=== PATIENT | female | born 1935 | race Hispanic/Latino ===

== ENCOUNTER 2017-07-03 16:43 | Inpatient (IN) | payer MEDICARE ==
[2017-07-03 18:51] VITALS: BMI 34.9
--- NOTE | 2017-07-03 20:06 | CP.PCM.HP ---
History of Present Illness - History of Present Illness History of Present Illness: CC: s/p L TKR This is an 82 year old female with a past medical history of osteoarthritis of the left knee, CKD, Type 2 DM, mild dementia, GERD, who is admitted to [facility] acute rehab status post left sided total knee replacement performed by Dr. Ludwig. The patient is hemodynamically stable currently. She is complaining of pain to the left knee and mild nausea but otherwise denies any other current complaint. She is admitted to acute rehab for continuation of PT/OT at this time. Orthopedic Surgeon: Dr. Ludwig PMD: Dr. Prakash Reich Present on Admission - Present on Admission Any Indicators Present on Admission: No Review of Systems - Hematologic/Lymphatic Additional comments: A 12 point ROS was conducted and found to be negative other than what was mentioned in the HPI. Past Patient History - Infectious Disease Hx of Infectious Diseases: None - Past Medical History & Family History Past Medical History?: Yes Past Family History: Reviewed and not pertinent - Past Social History Alcohol: None Home Situation {Lives}: With Family - CARDIAC Hx Hypertension: Yes - NEUROLOGICAL Hx Dementia: Yes - RENAL Hx Chronic Kidney Disease: Yes - ENDOCRINE/METABOLIC Hx Diabetes Mellitus Type 2: Yes - PSYCHIATRIC Hx Anxiety: Yes - SURGICAL HISTORY Hx Surgeries: Yes Hx Orthopedic Surgery: Yes Other/Comment: R kidney removal, R ovarian and tubal removal, R shoulder surgery - ANESTHESIA Hx Anesthesia: Yes Meds Allergies/Adverse Reactions: Allergies Allergy/AdvReac Type Severity Reaction Status Date / Time Penicillins Allergy SHORTNESS Verified 07/03/17 18:52 OF BREATH Physical Exam - Additional Findings Additional findings: Physical exam: Constitutional- cooperative, awake, alert. Occitan speaking only female NAD Head- NCAT, PERRL Eye- PERRL, EOMI ENT- normal exam, MMM. Neck- normal inspection, supple, no JVD Respiratory- CTAB, no wheezes rales rhonchi Cardiovascular- RRR, +S1, +S2 no MRG GI/Abdominal- Obese, normal bowel sounds, soft, no mass, no hsm Skin- warm, dry Extremities Exam- + small right knee skin tear present since admission. normal capillary refill, normal inspection Neurological Exam- alert, awake, oriented Psych- normal mood, normal affect Assessment & Plan - Assessment and Plan (Free Text) Plan: ASSESSMENT/PLAN This is an 82 year old female with a past medical history of osteoarthritis of the left knee, CKD, Type 2 DM, mild dementia, GERD, who is admitted to [facility] acute rehab status post left sided total knee replacement performed by Dr. Ludwig. The patient is hemodynamically stable currently. She is complaining of pain to the left knee and mild nausea but otherwise denies any other current complaint. She is admitted to acute rehab for continuation of PT/OT at this time. 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
[2017-07-04] MEDS: Pantoprazole 40 mg EC Tab PO SCH (06:40)
[2017-07-04] MEDS: Insulin Regular 100 units/ml SC SCH ×4 (06:48→21:00)
[2017-07-04] MEDS: Calcium-Vit D 500 mg-200 Units Tab UD PO SCH ×2 (08:47→17:25)
[2017-07-04] MEDS: Metoprolol Succinate 100 mg XL Tab PO SCH (08:49)
[2017-07-04 11:04] LABS: HEMOGLOBIN 9.1 g/dL (12.0-16.0); MEAN CELL VOLUME 89.9 fl (81.0-99.0); MEAN CORPUSCULAR HEMOGLOBIN 30.3 pg (27.0-31.0); MEAN CORPUSCULAR HGB CONC 33.7 g/dL (33.0-37.0); WHITE BLOOD COUNT 8.7 K/uL (4.8-10.8)
[2017-07-04 11:10] LABS: BLOOD UREA NITROGEN 19 mg/dl (7-17); CALCIUM 9.1 mg/dL (8.4-10.2); GFR AFRICAN-AMERICAN > 60; GFR NON-AFRICAN AMERICAN > 60
[2017-07-04 11:20] LABS: INR 1.3 (0.9-1.2); PARTIAL THROMBOPLASTIN TIME 31.7 Seconds (25.6-37.1)
[2017-07-04] MEDS: Enoxaparin 40 mg Syringe SC SCH (12:19)
--- NOTE | 2017-07-04 18:36 | CP.PCM.CON ---
History of Present Illness - History of Present Illness History of Present Illness: 82 year old female admitted to acute rehab with left TOTAL KNEE REPLACEMENT by Dr Ludwig with PMH of GERD, DM Review of Systems - Musculoskeletal Musculoskeletal: Abnormal Gait, Limited Range of Motion, Muscle Weakness Past Patient History - Infectious Disease Hx of Infectious Diseases: None - Past Medical History & Family History Past Medical History?: Yes - Past Social History Smoking Status: Never Smoked - CARDIAC Hx Hypertension: Yes - PULMONARY Hx Respiratory Disorders: Yes Other/Comment: - "Breathing problems" (Denies any hx: asthma,. COPD, or pneumonia). Patient prescribed Singulair - NEUROLOGICAL Hx Dementia: Yes - HEENT Hx Cataracts: Yes (Hx. of bilateral cataract surgeries) - RENAL Hx Chronic Kidney Disease: Yes (JED on CKD) - ENDOCRINE/METABOLIC Hx Diabetes Mellitus Type 2: Yes - HEMATOLOGICAL/ONCOLOGICAL Hx AIDS: No Hx Human Immunodeficiency Virus (HIV): No - MUSCULOSKELETAL/RHEUMATOLOGICAL Hx Falls: Yes (Per dgt, > 5 times. Per patient, > 10 times in the last 3 months ) - PSYCHIATRIC Hx Anxiety: Yes Hx Substance Use: No - SURGICAL HISTORY Hx Surgeries: Yes Hx Orthopedic Surgery: Yes Other/Comment: -- Left total knee replacement 07/01/2017. -- Right kidney removal. -- Right ovarian and tubal removal. -- Right shoulder surgery - ANESTHESIA Hx Anesthesia: Yes Hx Anesthesia Reactions: No Hx Malignant Hyperthermia: No Has any member of the family had a problem w/ anesthesia?: No Meds Allergies/Adverse Reactions: Allergies Allergy/AdvReac Type Severity Reaction Status Date / Time Penicillins Allergy SHORTNESS Verified 07/04/17 00:22 OF BREATH - Medications Medications: Current Medications Alprazolam (Xanax) 1 mg PO BID PRN PRN Reason: Anxiety Last Admin: 07/04/17 08:51 Dose: 1 mg Aspirin (Ecotrin) 81 mg PO DAILY [facility] Last Admin: 07/04/17 08:46 Dose: 81 mg Atorvastatin Calcium (Lipitor) 20 mg PO HS [facility] Last Admin: 07/03/17 22:29 Dose: 20 mg Calcium/Vitamin D (Oyster Shell Calcium/Vitamin D 500 Mg-200 Iu) 1 tab PO BID [facility] Last Admin: 07/04/17 17:25 Dose: 1 tab Clotrimazole (Lotrimin 1% Cream) 1 applic TOP BID [facility] Last Admin: 07/04/17 17:25 Dose: 1 applic Donepezil HCl (Aricept) 10 mg PO DAILY [facility] Last Admin: 07/04/17 08:46 Dose: 10 mg Enoxaparin Sodium (Lovenox) 40 mg SC DAILY [facility] PRN Reason: Protocol Last Admin: 07/04/17 12:19 Dose: 40 mg Glipizide (Glucotrol) 5 mg PO BIDWM [facility] Last Admin: 07/04/17 17:24 Dose: 5 mg Insulin Human Regular (Humulin R) 0 units SC [facility] PRN Reason: Protocol Last Admin: 07/04/17 17:25 Dose: 1 unit Lisinopril (Zestril) 40 mg PO DAILY [facility] Last Admin: 07/04/17 08:45 Dose: 40 mg Meclizine HCl (Antivert) 12.5 mg PO Q8 PRN PRN Reason: Dizziness Metformin HCl (Glucophage) 500 mg PO BIDWM [facility] Last Admin: 07/04/17 17:24 Dose: 500 mg Metoprolol Succinate (Toprol Xl) 100 mg PO DAILY [facility] Last Admin: 07/04/17 08:49 Dose: 100 mg Montelukast Sodium (Singulair) 10 mg PO HS [facility] Last Admin: 07/03/17 22:29 Dose: 10 mg Ondansetron HCl (Zofran Odt) 4 mg PO Q8H PRN PRN Reason: Nausea/Vomiting Pantoprazole Sodium (Protonix Ec Tab) 40 mg PO 0630 [facility] Last Admin: 07/04/17 06:40 Dose: 40 mg Paroxetine HCl (Paxil) 40 mg PO DAILY [facility] Last Admin: 07/04/17 08:48 Dose: 40 mg Tramadol HCl (Ultram) 50 mg PO Q6 PRN PRN Reason: PAIN. Last Admin: 07/04/17 08:52 Dose: 50 mg Zolpidem Tartrate (Ambien) 5 mg PO HS PRN PRN Reason: Insomnia Last Admin: 07/03/17 22:28 Dose: 5 mg Physical Exam - Head Exam Head Exam: ATRAUMATIC, NORMAL INSPECTION, NORMOCEPHALIC - Eye Exam Eye Exam: EOMI, Normal appearance, PERRL Pupil Exam: NORMAL ACCOMODATION, PERRL - ENT Exam ENT Exam: Mucous Membranes Moist, Normal Exam - Neck Exam Neck exam: Positive for: Normal Inspection - Respiratory Exam Respiratory Exam: Clear to Auscultation Bilateral - Cardiovascular Exam Cardiovascular Exam: REGULAR RHYTHM - GI/Abdominal Exam GI & Abdominal Exam: Normal Bowel Sounds - Rectal Exam Rectal Exam: NORMAL INSPECTION - Exam External exam: NORMAL EXTERNAL EXAM - Extremities Exam Extremities exam: Positive for: normal inspection Additional comments: left leg weakness with history OF TKR - Back Exam Back exam: NORMAL INSPECTION - Neurological Exam Neurological exam: Alert, CN II-XII Intact - Psychiatric Exam Psychiatric exam: Normal Affect - Skin Skin Exam: Normal Color Results - Vital Signs Recent Vital Signs: Last Vital Signs Temp 98.2 F 07/04/17 08:00 Pulse 101 H 07/04/17 08:49 Resp 20 07/04/17 08:00 BP 150/89 07/04/17 08:49 Pulse Ox 95 07/04/17 08:40 - Labs Result Diagrams: 07/04/17 10:55 07/04/17 10:55 Labs: Laboratory Results - last 24 hr 07/03/17 07/04/17 07/04/17 23:05 06:45 10:55 WBC 8.7 RBC 3.00 L Hgb 9.1 L Hct 26.9 L MCV 89.9 MCH 30.3 MCHC 33.7 RDW 15.0 H Plt Count 184 PT INR APTT Sodium Potassium Chloride Carbon Dioxide Anion Gap BUN Creatinine Est GFR ( Amer) Est GFR (Non-Af Amer) POC Glucose (mg/dL) 186 H 167 H Random Glucose Calcium 07/04/17 07/04/17 07/04/17 10:55 10:57 11:34 WBC RBC Hgb Hct MCV MCH MCHC RDW Plt Count PT 14.0 H INR 1.3 H APTT 31.7 Sodium 138 Potassium 4.4 Chloride 101 Carbon Dioxide 25 Anion Gap 16 BUN 19 H Creatinine 0.9 Est GFR ( Amer) > 60 Est GFR (Non-Af Amer) > 60 POC Glucose (mg/dL) 248 H Random Glucose 288 H Calcium 9.1 07/04/17 16:45 WBC RBC Hgb Hct MCV MCH MCHC RDW Plt Count PT INR APTT Sodium Potassium Chloride Carbon Dioxide Anion Gap BUN Creatinine Est GFR ( Amer) Est GFR (Non-Af Amer) POC Glucose (mg/dL) 159 H Random Glucose Calcium Assessment & Plan (1) S/P TKR (total knee replacement) Assessment and Plan: patient wit history of left total knee replacement, with history of arthritis, DM, gerd for physical, occupational , rec therapy for range of motion, strengthening, transfers and gait training Status: Acute
--- NOTE | 2017-07-04 18:41 | PCM.OPOC ---
Physiatry Overall Plan of Care - Overall Plan of Care Estimated Length of Stay in Weeks: 2 Rehab Impairment: Mobility, Gait, Balance, Coordination Etiologic Diagnosis: Hip/Knee Surgery Rehab/Medical Prognosis: Fair - Anticipated Interventions Physical Therapy:: Yes Occupational Therapy:: Yes Recreational Therapy:: Yes - Therapy Goals Bed Mobility: Independent Ambulation: Independent Functional Positional Changes:: Independent - Functional Outcomes Functional Outcomes: fair - Discharge Plan Identification of Barriers to Discharge: Home Situation Discharge Destination: Home
--- NOTE | 2017-07-04 18:43 | CP.PCM.PN ---
Subjective - Date & Time of Evaluation Date of Evaluation: 07/04/17 Time of Evaluation: 15:15 - Subjective Subjective: no acute complaints except mild knee pain Objective - Vital Signs/Intake and Output Vital Signs (last 24 hours): Temp Pulse Resp BP Pulse Ox 98.2 F 101 H 20 150/89 95 07/04/17 08:00 07/04/17 08:49 07/04/17 08:00 07/04/17 08:49 07/04/17 08:40 - Medications Medications: Current Medications Alprazolam (Xanax) 1 mg PO BID PRN PRN Reason: Anxiety Last Admin: 07/04/17 08:51 Dose: 1 mg Aspirin (Ecotrin) 81 mg PO DAILY [facility] Last Admin: 07/04/17 08:46 Dose: 81 mg Atorvastatin Calcium (Lipitor) 20 mg PO HS [facility] Last Admin: 07/03/17 22:29 Dose: 20 mg Calcium/Vitamin D (Oyster Shell Calcium/Vitamin D 500 Mg-200 Iu) 1 tab PO BID [facility] Last Admin: 07/04/17 17:25 Dose: 1 tab Clotrimazole (Lotrimin 1% Cream) 1 applic TOP BID [facility] Last Admin: 07/04/17 17:25 Dose: 1 applic Donepezil HCl (Aricept) 10 mg PO DAILY [facility] Last Admin: 07/04/17 08:46 Dose: 10 mg Enoxaparin Sodium (Lovenox) 40 mg SC DAILY [facility] PRN Reason: Protocol Last Admin: 07/04/17 12:19 Dose: 40 mg Glipizide (Glucotrol) 5 mg PO BIDWM [facility] Last Admin: 07/04/17 17:24 Dose: 5 mg Insulin Human Regular (Humulin R) 0 units SC [facility] PRN Reason: Protocol Last Admin: 07/04/17 17:25 Dose: 1 unit Lisinopril (Zestril) 40 mg PO DAILY [facility] Last Admin: 07/04/17 08:45 Dose: 40 mg Meclizine HCl (Antivert) 12.5 mg PO Q8 PRN PRN Reason: Dizziness Metformin HCl (Glucophage) 500 mg PO BIDWM [facility] Last Admin: 07/04/17 17:24 Dose: 500 mg Metoprolol Succinate (Toprol Xl) 100 mg PO DAILY [facility] Last Admin: 07/04/17 08:49 Dose: 100 mg Montelukast Sodium (Singulair) 10 mg PO HS [facility] Last Admin: 07/03/17 22:29 Dose: 10 mg Ondansetron HCl (Zofran Odt) 4 mg PO Q8H PRN PRN Reason: Nausea/Vomiting Pantoprazole Sodium (Protonix Ec Tab) 40 mg PO 0630 [facility] Last Admin: 07/04/17 06:40 Dose: 40 mg Paroxetine HCl (Paxil) 40 mg PO DAILY [facility] Last Admin: 07/04/17 08:48 Dose: 40 mg Tramadol HCl (Ultram) 50 mg PO Q6 PRN PRN Reason: PAIN. Last Admin: 07/04/17 08:52 Dose: 50 mg Zolpidem Tartrate (Ambien) 5 mg PO HS PRN PRN Reason: Insomnia Last Admin: 07/03/17 22:28 Dose: 5 mg - Labs Labs: 07/04/17 10:55 07/04/17 10:55 PT 14.0 Seconds (9.8-13.1) H 07/04/17 10:57 INR 1.3 (0.9-1.2) H 07/04/17 10:57 APTT 31.7 Seconds (25.6-37.1) 07/04/17 10:57 - Head Exam Head Exam: ATRAUMATIC, NORMAL INSPECTION, NORMOCEPHALIC - Eye Exam Eye Exam: EOMI, Normal appearance Pupil Exam: NORMAL ACCOMODATION, PERRL - ENT Exam ENT Exam: Mucous Membranes Moist, Normal Exam - Neck Exam Neck Exam: Full ROM, Normal Inspection - Respiratory Exam Respiratory Exam: Clear to Ausculation Bilateral - Cardiovascular Exam Cardiovascular Exam: REGULAR RHYTHM - GI/Abdominal Exam GI & Abdominal Exam: Soft, Normal Bowel Sounds - Rectal Exam Rectal Exam: NORMAL INSPECTION - Exam External exam: NORMAL EXTERNAL EXAM - Extremities Exam Extremities Exam: Full ROM, Normal Capillary Refill - Back Exam Back Exam: NORMAL INSPECTION - Neurological Exam Neurological Exam: Alert, Awake Neuro motor strength exam: Left Upper Extremity: 4, Right Upper Extremity: 4, Left Lower Extremity: 3, Right Lower Extremity: 4 - Psychiatric Exam Psychiatric exam: Normal Affect - Skin Skin Exam: Dry, Normal Color Assessment and Plan (1) S/P TKR (total knee replacement) Assessment & Plan: plan for physical, occupational, quad strengthening range of motion exercises Status: Acute
[2017-07-05] MEDS: Pantoprazole 40 mg EC Tab PO SCH (06:13)
[2017-07-05] MEDS: Insulin Regular 100 units/ml SC SCH ×4 (06:30→21:50)
[2017-07-05] MEDS: Enoxaparin 40 mg Syringe SC SCH (08:11)
[2017-07-05] MEDS: Metoprolol Succinate 100 mg XL Tab PO SCH (08:12)
[2017-07-05] MEDS: Calcium-Vit D 500 mg-200 Units Tab UD PO SCH ×2 (08:16→17:24)
[2017-07-05] MEDS: Bacitracin OINT 15GM TOP SCH (17:25)
[2017-07-06] MEDS: Pantoprazole 40 mg EC Tab PO SCH (06:04)
[2017-07-06 06:52] LABS: HEMOGLOBIN 8.7 g/dL (12.0-16.0); MEAN CORPUSCULAR HEMOGLOBIN 29.4 pg (27.0-31.0); MEAN CORPUSCULAR HGB CONC 32.6 g/dL (33.0-37.0); RBC 2.98 Mil/uL (3.80-5.20); RED CELL DISTRIBUTION WIDTH 14.9 % (11.5-14.5); WHITE BLOOD COUNT 7.7 K/uL (4.8-10.8)
[2017-07-06] MEDS: Insulin Regular 100 units/ml SC SCH ×4 (06:54→22:11)
[2017-07-06 07:32] LABS: INR 1.2 (0.9-1.2); PROTHROMBIN TIME 12.9 Seconds (9.8-13.1)
[2017-07-06] MEDS: Enoxaparin 40 mg Syringe SC SCH (08:02)
[2017-07-06] MEDS: Calcium-Vit D 500 mg-200 Units Tab UD PO SCH ×2 (08:03→16:41)
[2017-07-06] MEDS: Bacitracin OINT 15GM TOP SCH ×2 (08:03→16:39)
[2017-07-06] MEDS: Metoprolol Succinate 100 mg XL Tab PO SCH (08:03)
[2017-07-06 08:12] LABS: ALBUMIN 3.1 g/dL (3.5-5.0); ALT/SGPT 31 U/L (9-52); AST/SGOT 20 U/L (14-36); BLOOD UREA NITROGEN 16 mg/dl (7-17); CALCIUM 8.7 mg/dL (8.4-10.2); GFR AFRICAN-AMERICAN > 60; GFR NON-AFRICAN AMERICAN > 60
--- NOTE | 2017-07-06 08:32 | PN ---
DATE: 07/05/2017 MEDICAL FOLLOWUP PROGRESS NOTE SUBJECTIVE: The patient is seen and examined. Interim events noted. Orthopedic interventions noted and appreciated. The patient is status post total knee replacement on left. The patient did not ____ history is obtained by template layout worker. No shortness of breath. No specific medications. PHYSICAL EXAMINATION: GENERAL: The patient is in no acute distress. VITAL SIGNS: Stable. HEART: S1 and S2 are normal and regular. LUNGS: Good bilateral air exchange. GASTROINTESTINAL: Abdomen is soft and nontender. EXTREMITIES: Left lower extremity is in knee immobilizer. No sign of distal neurovascular compromise. No edema and no calf swelling. No tenderness. No acute ischemia. CENTRAL NERVOUS SYSTEM: Exam is essentially unchanged. DIAGNOSTIC DATA: Available diagnostic data reviewed. Hospitalist and interventions noted and appreciated. ASSESSMENT AND PLAN: Overall, the patient is medically stable. Plan as ordered. Hermilo Mederos MD
--- NOTE | 2017-07-06 08:47 | PN ---
DATE: 07/06/2017 SUBJECTIVE: The patient is seen and examined. Interim events noted and . She feels okay. Pain is adequately controlled. No chest pain or shortness of breath. PHYSICAL EXAMINATION: GENERAL: The patient is in no acute distress. VITAL SIGNS: Stable. HEART: S1 and S2 normal and regular. LUNGS: Good bilateral air exchange. GASTROINTESTINAL: Abdomen is soft and nontender. EXTREMITIES: The patient is status post surgery. No sign of acute complications. No guarding. No rigidity. No edema. No calf swelling. No tenderness. No acute ischemia. CENTRAL NERVOUS SYSTEM: Exam is essentially unchanged. DIAGNOSTIC DATA: Available diagnostic data reviewed. ASSESSMENT AND PLAN: Overall, the patient's general medical condition is stable. Plan as ordered. Hermilo Mederos MD
[2017-07-07] MEDS: Pantoprazole 40 mg EC Tab PO SCH (06:01)
[2017-07-07 06:39] LABS: HEMOGLOBIN 8.7 g/dL (12.0-16.0); MEAN CELL VOLUME 89.2 fl (81.0-99.0); MEAN CORPUSCULAR HEMOGLOBIN 29.6 pg (27.0-31.0); MEAN CORPUSCULAR HGB CONC 33.2 g/dL (33.0-37.0); RBC 2.92 Mil/uL (3.80-5.20); RED CELL DISTRIBUTION WIDTH 14.8 % (11.5-14.5); WHITE BLOOD COUNT 8.1 K/uL (4.8-10.8)
[2017-07-07] MEDS: Insulin Regular 100 units/ml SC SCH ×4 (06:46→21:06)
[2017-07-07] MEDS: Bacitracin OINT 15GM TOP SCH ×2 (08:43→17:28)
[2017-07-07] MEDS: Enoxaparin 40 mg Syringe SC SCH (08:43)
[2017-07-07] MEDS: Metoprolol Succinate 100 mg XL Tab PO SCH (08:45)
[2017-07-07] MEDS: Calcium-Vit D 500 mg-200 Units Tab UD PO SCH ×2 (08:46→17:28)
--- NOTE | 2017-07-07 09:40 | CP.PCM.PN ---
Subjective - Date & Time of Evaluation Date of Evaluation: 07/07/17 Time of Evaluation: 07:10 - Subjective Subjective: Patient seen and examined bedside with Dr Mederos. Patient reports feeling better and on PT. no overnight event. Denies chest pain, SOB, nausea, vomiting, diarrhea, abd pain. Objective - Vital Signs/Intake and Output Vital Signs (last 24 hours): Temp Pulse Resp BP Pulse Ox 98.2 F 87 19 145/73 96 07/07/17 08:12 07/07/17 08:45 07/07/17 08:12 07/07/17 08:46 07/07/17 08:12 - Medications Medications: Current Medications Alprazolam (Xanax) 1 mg PO BID PRN PRN Reason: Anxiety Last Admin: 07/05/17 08:05 Dose: 1 mg Aspirin (Ecotrin) 81 mg PO DAILY [facility] Last Admin: 07/07/17 08:46 Dose: 81 mg Atorvastatin Calcium (Lipitor) 20 mg PO HS [facility] Last Admin: 07/06/17 22:11 Dose: 20 mg Bacitracin (Bacitracin Oint) 1 applic TOP BID [facility] Last Admin: 07/07/17 08:43 Dose: 1 applic Calcium/Vitamin D (Oyster Shell Calcium/Vitamin D 500 Mg-200 Iu) 1 tab PO BID [facility] Last Admin: 07/07/17 08:46 Dose: 1 tab Clotrimazole (Lotrimin 1% Cream) 1 applic TOP BID [facility] Last Admin: 07/07/17 08:43 Dose: 1 applic Donepezil HCl (Aricept) 10 mg PO DAILY [facility] Last Admin: 07/07/17 08:47 Dose: 10 mg Enoxaparin Sodium (Lovenox) 40 mg SC DAILY [facility] PRN Reason: Protocol Last Admin: 07/07/17 08:43 Dose: 40 mg Glipizide (Glucotrol) 5 mg PO BIDWM [facility] Last Admin: 07/07/17 08:44 Dose: 5 mg Insulin Human Regular (Humulin R) 0 units SC [facility] PRN Reason: Protocol Last Admin: 07/07/17 06:46 Dose: Not Given Lisinopril (Zestril) 40 mg PO DAILY [facility] Last Admin: 07/07/17 08:46 Dose: 40 mg Meclizine HCl (Antivert) 12.5 mg PO Q8 PRN PRN Reason: Dizziness Metformin HCl (Glucophage) 500 mg PO BIDWM [facility] Last Admin: 07/07/17 08:44 Dose: 500 mg Metoprolol Succinate (Toprol Xl) 100 mg PO DAILY [facility] Last Admin: 07/07/17 08:45 Dose: 100 mg Montelukast Sodium (Singulair) 10 mg PO HS [facility] Last Admin: 07/06/17 22:12 Dose: 10 mg Ondansetron HCl (Zofran Odt) 4 mg PO Q8H PRN PRN Reason: Nausea/Vomiting Pantoprazole Sodium (Protonix Ec Tab) 40 mg PO 0630 [facility] Last Admin: 07/07/17 06:01 Dose: 40 mg Paroxetine HCl (Paxil) 40 mg PO DAILY [facility] Last Admin: 07/07/17 08:46 Dose: 40 mg Tramadol HCl (Ultram) 50 mg PO Q6 PRN PRN Reason: PAIN SCALE 1-10. Last Admin: 07/07/17 09:15 Dose: 50 mg Zolpidem Tartrate (Ambien) 5 mg PO HS PRN PRN Reason: Insomnia Last Admin: 07/06/17 22:33 Dose: 5 mg - Labs Labs: 07/07/17 04:00 07/06/17 05:40 PT 12.9 Seconds (9.8-13.1) 07/06/17 05:40 INR 1.2 (0.9-1.2) 07/06/17 05:40 APTT 31.7 Seconds (25.6-37.1) 07/04/17 10:57 - Constitutional Appears: Non-toxic, No Acute Distress - Head Exam Head Exam: ATRAUMATIC, NORMOCEPHALIC - Eye Exam Eye Exam: Normal appearance - ENT Exam ENT Exam: Mucous Membranes Moist - Respiratory Exam Respiratory Exam: Clear to Ausculation Bilateral. absent: Rales, Rhonchi, Wheezes - Cardiovascular Exam Cardiovascular Exam: REGULAR RHYTHM, +S1, +S2 - GI/Abdominal Exam GI & Abdominal Exam: Soft, Normal Bowel Sounds. absent: Tenderness - Extremities Exam Additional comments: Left elbow hematoma. right knee anterior aspect hematoma.no signs of infection Left knee s/p TKR - Neurological Exam Neurological Exam: Alert, Awake, Oriented x3 - Psychiatric Exam Psychiatric exam: Normal Affect, Normal Mood Assessment and Plan - Assessment and Plan (Free Text) Plan: Assessment/Plan 1) s/p L TKR - Admit to acute rehab -c/w PT/OT - Pain management with Ultram/Tylenol as needed 2) Type 2 DM - Glipizide/Metformin 3) Hypercholesterolemia - Lipitor 20 mg po HS 4) Essential HTN - Lisinopril 40 mg po daily 5) Anxiety - Continue Xanax PRN 6) GI prophylaxis - Protonix 40 mg po daily' 7) DVT prophylaxis - Lovenox 40 mg sc
[2017-07-07 10:29] LABS: ALBUMIN 3.1 g/dL (3.5-5.0); ALT/SGPT 30 U/L (9-52); AST/SGOT 66 U/L (14-36); BLOOD UREA NITROGEN 17 mg/dl (7-17); CALCIUM 9.1 mg/dL (8.4-10.2); GFR AFRICAN-AMERICAN > 60; GFR NON-AFRICAN AMERICAN > 60
--- NOTE | 2017-07-07 14:19 | CP.PCM.PN ---
Subjective - Date & Time of Evaluation Date of Evaluation: 07/07/17 Time of Evaluation: 12:15 - Subjective Subjective: mild knee pain Objective - Vital Signs/Intake and Output Vital Signs (last 24 hours): Temp Pulse Resp BP Pulse Ox 98.2 F 87 19 145/73 96 07/07/17 08:12 07/07/17 08:45 07/07/17 08:12 07/07/17 08:46 07/07/17 08:12 - Medications Medications: Current Medications Alprazolam (Xanax) 1 mg PO BID PRN PRN Reason: Anxiety Last Admin: 07/05/17 08:05 Dose: 1 mg Aspirin (Ecotrin) 81 mg PO DAILY [facility] Last Admin: 07/07/17 08:46 Dose: 81 mg Atorvastatin Calcium (Lipitor) 20 mg PO HS [facility] Last Admin: 07/06/17 22:11 Dose: 20 mg Bacitracin (Bacitracin Oint) 1 applic TOP BID [facility] Last Admin: 07/07/17 08:43 Dose: 1 applic Calcium/Vitamin D (Oyster Shell Calcium/Vitamin D 500 Mg-200 Iu) 1 tab PO BID [facility] Last Admin: 07/07/17 08:46 Dose: 1 tab Clotrimazole (Lotrimin 1% Cream) 1 applic TOP BID [facility] Last Admin: 07/07/17 08:43 Dose: 1 applic Donepezil HCl (Aricept) 10 mg PO DAILY [facility] Last Admin: 07/07/17 08:47 Dose: 10 mg Enoxaparin Sodium (Lovenox) 40 mg SC DAILY [facility] PRN Reason: Protocol Last Admin: 07/07/17 08:43 Dose: 40 mg Glipizide (Glucotrol) 5 mg PO BIDWM [facility] Last Admin: 07/07/17 08:44 Dose: 5 mg Insulin Human Regular (Humulin R) 0 units SC [facility] PRN Reason: Protocol Last Admin: 07/07/17 11:45 Dose: 1 unit Lisinopril (Zestril) 40 mg PO DAILY [facility] Last Admin: 07/07/17 08:46 Dose: 40 mg Meclizine HCl (Antivert) 12.5 mg PO Q8 PRN PRN Reason: Dizziness Metformin HCl (Glucophage) 500 mg PO BIDWM [facility] Last Admin: 07/07/17 08:44 Dose: 500 mg Metoprolol Succinate (Toprol Xl) 100 mg PO DAILY [facility] Last Admin: 07/07/17 08:45 Dose: 100 mg Montelukast Sodium (Singulair) 10 mg PO HS [facility] Last Admin: 07/06/17 22:12 Dose: 10 mg Ondansetron HCl (Zofran Odt) 4 mg PO Q8H PRN PRN Reason: Nausea/Vomiting Pantoprazole Sodium (Protonix Ec Tab) 40 mg PO 0630 [facility] Last Admin: 07/07/17 06:01 Dose: 40 mg Paroxetine HCl (Paxil) 40 mg PO DAILY [facility] Last Admin: 07/07/17 08:46 Dose: 40 mg Tramadol HCl (Ultram) 50 mg PO Q6 PRN PRN Reason: PAIN SCALE 1-10. Last Admin: 07/07/17 09:15 Dose: 50 mg Zolpidem Tartrate (Ambien) 5 mg PO HS PRN PRN Reason: Insomnia Last Admin: 07/06/17 22:33 Dose: 5 mg - Labs Labs: 07/07/17 04:00 07/07/17 04:00 PT 12.9 Seconds (9.8-13.1) 07/06/17 05:40 INR 1.2 (0.9-1.2) 07/06/17 05:40 APTT 31.7 Seconds (25.6-37.1) 07/04/17 10:57 - Head Exam Head Exam: ATRAUMATIC, NORMAL INSPECTION, NORMOCEPHALIC - Eye Exam Eye Exam: EOMI, Normal appearance, PERRL Pupil Exam: NORMAL ACCOMODATION - ENT Exam ENT Exam: Mucous Membranes Moist, Normal Exam - Neck Exam Neck Exam: Normal Inspection - Respiratory Exam Respiratory Exam: Clear to Ausculation Bilateral, NORMAL BREATHING PATTERN - Cardiovascular Exam Cardiovascular Exam: REGULAR RHYTHM - GI/Abdominal Exam GI & Abdominal Exam: Soft - Rectal Exam Rectal Exam: NORMAL INSPECTION - Exam External exam: NORMAL EXTERNAL EXAM - Extremities Exam Extremities Exam: Full ROM, Normal Capillary Refill, Normal Inspection - Back Exam Back Exam: NORMAL INSPECTION - Neurological Exam Neurological Exam: Alert, Awake Neuro motor strength exam: Left Upper Extremity: 4, Right Upper Extremity: 4, Left Lower Extremity: 3, Right Lower Extremity: 4 - Psychiatric Exam Psychiatric exam: Normal Affect, Normal Mood - Skin Skin Exam: Dry, Normal Color Assessment and Plan (1) S/P TKR (total knee replacement) Assessment & Plan: plan for physical, occupational rec therapy monitor skin Status: Acute
--- NOTE | 2017-07-07 18:24 | CT ---
PROCEDURE: CT HEAD WITHOUT CONTRAST. HISTORY: Change in mental status. COMPARISON: 02/15/2008. TECHNIQUE: Axial computed tomography images were obtained through the head/brain without intravenous contrast. Coronal and sagittal reconstructed images. Radiation dose: Total exam DLP = 781.23 MGy-cm. This CT exam was performed using one or more of the following dose reduction techniques: Automated exposure control, adjustment of the mA and/or kV according to patient size, and/or use of iterative reconstruction technique. FINDINGS: HEMORRHAGE: No intracranial hemorrhage. BRAIN: No mass effect or edema. Age related senescent changes. VENTRICLES: Unremarkable. No hydrocephalus. CALVARIUM: Unremarkable. PARANASAL SINUSES: Unremarkable as visualized. No significant inflammatory changes. MASTOID AIR CELLS: Unremarkable as visualized. No inflammatory changes. OTHER FINDINGS: None. IMPRESSION: No acute intracranial abnormalities. No significant findings to account for the clinical presentation. No significant interval change compared to the prior examination(s).
--- NOTE | 2017-07-07 18:56 | CP.PCM.CON ---
History of Present Illness - History of Present Illness History of Present Illness: Mrs. Diaz is an 82-year-old woman with a past medical history of osteoarthritis of the left knee, CKD, Type 2 DM, dementia (on Aricept), GERD, who is s/p left knee replacement (on July 01), and is currently in acute rehab. Earlier today, at around 4:30 PM, the patient became acutely agitated, called nursing and told them that her daughter is in the bathroom having a heart attack. The nurses assured her this was not true and showed her. Later her daughter came and said she was okay, but the patient insisted that her daughter had a secret procedure done and asked her to show her by removing her shirt. Essentially, the patient was having hallucinations and delusions along with agitation. She has difficulty sleeping and takes Ambien and occasionally takes Xanax for anxiety. She was given Ultram today for pain. Currently, the patient is back to baseline. Her daughter was present and said that her mother is back to normal now. CT scan of the head was done and did not show any acute findings. Review of Systems - Review of Systems All systems: reviewed and no additional remarkable complaints except Past Patient History - Infectious Disease Hx of Infectious Diseases: None - Past Medical History & Family History Past Medical History?: Yes - Past Social History Smoking Status: Never Smoked - CARDIAC Hx Hypertension: Yes - PULMONARY Hx Respiratory Disorders: Yes Other/Comment: - "Breathing problems" (Denies any hx: asthma,. COPD, or pneumonia). Patient prescribed Singulair - NEUROLOGICAL Hx Dementia: Yes - HEENT Hx Cataracts: Yes (Hx. of bilateral cataract surgeries) - RENAL Hx Chronic Kidney Disease: Yes (JED on CKD) - ENDOCRINE/METABOLIC Hx Diabetes Mellitus Type 2: Yes - HEMATOLOGICAL/ONCOLOGICAL Hx AIDS: No Hx Human Immunodeficiency Virus (HIV): No - MUSCULOSKELETAL/RHEUMATOLOGICAL Hx Falls: Yes (Per dgt, > 5 times. Per patient, > 10 times in the last 3 months ) - PSYCHIATRIC Hx Anxiety: Yes Hx Substance Use: No - SURGICAL HISTORY Hx Surgeries: Yes Hx Orthopedic Surgery: Yes Other/Comment: -- Left total knee replacement 07/01/2017. -- Right kidney removal. -- Right ovarian and tubal removal. -- Right shoulder surgery - ANESTHESIA Hx Anesthesia: Yes Hx Anesthesia Reactions: No Hx Malignant Hyperthermia: No Has any member of the family had a problem w/ anesthesia?: No Meds Allergies/Adverse Reactions: Allergies Allergy/AdvReac Type Severity Reaction Status Date / Time Penicillins Allergy SHORTNESS Verified 07/04/17 00:22 OF BREATH - Medications Medications: Current Medications Acetaminophen (Tylenol 325mg Tab) 650 mg PO Q6 PRN PRN Reason: Pain 4-10 Alprazolam (Xanax) 1 mg PO BID PRN PRN Reason: Anxiety Last Admin: 07/05/17 08:05 Dose: 1 mg Aspirin (Ecotrin) 81 mg PO DAILY [facility] Last Admin: 07/07/17 08:46 Dose: 81 mg Atorvastatin Calcium (Lipitor) 20 mg PO HS [facility] Last Admin: 07/06/17 22:11 Dose: 20 mg Bacitracin (Bacitracin Oint) 1 applic TOP BID [facility] Last Admin: 07/07/17 17:28 Dose: 1 applic Calcium/Vitamin D (Oyster Shell Calcium/Vitamin D 500 Mg-200 Iu) 1 tab PO BID [facility] Last Admin: 07/07/17 17:28 Dose: 1 tab Clotrimazole (Lotrimin 1% Cream) 1 applic TOP BID [facility] Last Admin: 07/07/17 17:27 Dose: 1 applic Donepezil HCl (Aricept) 10 mg PO DAILY [facility] Last Admin: 07/07/17 08:47 Dose: 10 mg Enoxaparin Sodium (Lovenox) 40 mg SC DAILY [facility] PRN Reason: Protocol Last Admin: 07/07/17 08:43 Dose: 40 mg Glipizide (Glucotrol) 5 mg PO BIDWM [facility] Last Admin: 07/07/17 17:28 Dose: 5 mg Insulin Human Regular (Humulin R) 0 units SC [facility] PRN Reason: Protocol Last Admin: 07/07/17 17:27 Dose: 1 unit Lisinopril (Zestril) 40 mg PO DAILY [facility] Last Admin: 07/07/17 08:46 Dose: 40 mg Meclizine HCl (Antivert) 12.5 mg PO Q8 PRN PRN Reason: Dizziness Metformin HCl (Glucophage) 500 mg PO BIDWM [facility] Last Admin: 07/07/17 17:28 Dose: 500 mg Metoprolol Succinate (Toprol Xl) 100 mg PO DAILY [facility] Last Admin: 07/07/17 08:45 Dose: 100 mg Montelukast Sodium (Singulair) 10 mg PO [facility] Last Admin: 07/06/17 22:12 Dose: 10 mg Ondansetron HCl (Zofran Odt) 4 mg PO Q8H PRN PRN Reason: Nausea/Vomiting Pantoprazole Sodium (Protonix Ec Tab) 40 mg PO 0630 [facility] Last Admin: 07/07/17 06:01 Dose: 40 mg Paroxetine HCl (Paxil) 40 mg PO DAILY [facility] Last Admin: 07/07/17 08:46 Dose: 40 mg Quetiapine Fumarate (Seroquel) 25 mg PO [facility] Physical Exam - Constitutional Appears: Well - Neurological Exam Neurological exam: Abnormal Gait, Alert, CN II-XII Intact, Oriented x3, Reflexes Normal Additional comments: AAOX3. - Psychiatric Exam Psychiatric exam: Normal Affect, Normal Mood Results - Vital Signs Recent Vital Signs: Last Vital Signs Temp 98.2 F 07/07/17 08:12 Pulse 87 07/07/17 08:45 Resp 19 07/07/17 08:12 BP 145/73 07/07/17 08:46 Pulse Ox 96 07/07/17 08:12 - Labs Result Diagrams: 07/07/17 04:00 07/07/17 04:00 Labs: Laboratory Results - last 24 hr 07/06/17 07/07/17 07/07/17 21:01 04:00 04:00 WBC 8.1 RBC 2.92 L Hgb 8.7 L Hct 26.0 L MCV 89.2 MCH 29.6 MCHC 33.2 RDW 14.8 H Plt Count 241 Sodium 138 Potassium 4.2 Chloride 102 Carbon Dioxide 23 Anion Gap 17 BUN 17 Creatinine 0.8 Est GFR ( Amer) > 60 Est GFR (Non-Af Amer) > 60 POC Glucose (mg/dL) 200 H Random Glucose 154 H Hemoglobin A1c Calcium 9.1 Total Bilirubin 0.8 AST 66 H D ALT 30 Alkaline Phosphatase 90 Total Protein 6.3 Albumin 3.1 L Globulin 3.1 Albumin/Globulin Ratio 1.0 07/07/17 07/07/17 07/07/17 06:41 07:25 11:22 WBC RBC Hgb Hct MCV MCH MCHC RDW Plt Count Sodium Potassium Chloride Carbon Dioxide Anion Gap BUN Creatinine Est GFR ( Amer) Est GFR (Non-Af Amer) POC Glucose (mg/dL) 165 H 186 H Random Glucose Hemoglobin A1c 7.8 H Calcium Total Bilirubin AST ALT Alkaline Phosphatase Total Protein Albumin Globulin Albumin/Globulin Ratio 07/07/17 16:20 WBC RBC Hgb Hct MCV MCH MCHC RDW Plt Count Sodium Potassium Chloride Carbon Dioxide Anion Gap BUN Creatinine Est GFR ( Amer) Est GFR (Non-Af Amer) POC Glucose (mg/dL) 157 H Random Glucose Hemoglobin A1c Calcium Total Bilirubin AST ALT Alkaline Phosphatase Total Protein Albumin Globulin Albumin/Globulin Ratio Assessment & Plan (1) Hallucinations Assessment and Plan: Likely due to a mix of medication effect, delirium and baseline dementia. I recommend avoiding opiates, benzos and ambien, if possible. I would like to give her a small dose of Seroquel 25 mg QHS to see if this will help reduce her episodes of hallucinations, help with sleep possibly help avoid sun-downing. Thank you. Status: Acute Priority: High
[2017-07-08] MEDS: Pantoprazole 40 mg EC Tab PO SCH (06:26)
[2017-07-08] MEDS: Insulin Regular 100 units/ml SC SCH ×4 (06:30→21:00)
[2017-07-08] MEDS: Bacitracin OINT 15GM TOP SCH ×2 (08:32→16:31)
[2017-07-08] MEDS: Calcium-Vit D 500 mg-200 Units Tab UD PO SCH ×2 (08:32→16:33)
[2017-07-08] MEDS: Enoxaparin 40 mg Syringe SC SCH (08:32)
[2017-07-08] MEDS: Metoprolol Succinate 100 mg XL Tab PO SCH (08:34)
--- NOTE | 2017-07-08 08:36 | CP.PCM.PN ---
Subjective - Date & Time of Evaluation Date of Evaluation: 07/08/17 Time of Evaluation: 07:15 - Subjective Subjective: Patient seen and examined bedside with Dr Mederos. Patient had one episode of AMS ( visual hallucination and agitation) yesterday. Patient today AAO x 3 with her daughter present. Denies visual, auditory hallucination, depression or anxiety. Denies chest pain, SOB, fever, abd pain. Improving with PT. Neuro consult appreciated Psyq consult pending Objective - Vital Signs/Intake and Output Vital Signs (last 24 hours): Temp Pulse Resp BP Pulse Ox 97.9 F 74 20 112/64 96 07/07/17 20:22 07/08/17 08:34 07/07/17 20:22 07/08/17 08:34 07/07/17 20:22 - Medications Medications: Current Medications Acetaminophen (Tylenol 325mg Tab) 650 mg PO Q6 PRN PRN Reason: Pain 4-10 Last Admin: 07/08/17 08:31 Dose: 650 mg Alprazolam (Xanax) 1 mg PO BID PRN PRN Reason: Anxiety Last Admin: 07/05/17 08:05 Dose: 1 mg Aspirin (Ecotrin) 81 mg PO DAILY [facility] Last Admin: 07/08/17 08:35 Dose: 81 mg Atorvastatin Calcium (Lipitor) 20 mg PO HS [facility] Last Admin: 07/07/17 21:23 Dose: 20 mg Bacitracin (Bacitracin Oint) 1 applic TOP BID [facility] Last Admin: 07/08/17 08:32 Dose: 1 applic Calcium/Vitamin D (Oyster Shell Calcium/Vitamin D 500 Mg-200 Iu) 1 tab PO BID [facility] Last Admin: 07/08/17 08:32 Dose: 1 tab Clotrimazole (Lotrimin 1% Cream) 1 applic TOP BID [facility] Last Admin: 07/08/17 08:32 Dose: 1 applic Donepezil HCl (Aricept) 10 mg PO DAILY [facility] Last Admin: 07/08/17 08:33 Dose: 10 mg Enoxaparin Sodium (Lovenox) 40 mg SC DAILY [facility] PRN Reason: Protocol Last Admin: 07/08/17 08:32 Dose: 40 mg Glipizide (Glucotrol) 5 mg PO BIDWM [facility] Last Admin: 07/08/17 08:35 Dose: 5 mg Insulin Human Regular (Humulin R) 0 units SC [facility] PRN Reason: Protocol Last Admin: 07/08/17 06:30 Dose: Not Given Lisinopril (Zestril) 40 mg PO DAILY [facility] Last Admin: 07/08/17 08:33 Dose: 40 mg Meclizine HCl (Antivert) 12.5 mg PO Q8 PRN PRN Reason: Dizziness Metformin HCl (Glucophage) 500 mg PO BIDWM [facility] Last Admin: 07/08/17 08:35 Dose: 500 mg Metoprolol Succinate (Toprol Xl) 100 mg PO DAILY [facility] Last Admin: 07/08/17 08:34 Dose: 100 mg Montelukast Sodium (Singulair) 10 mg PO HS [facility] Last Admin: 07/07/17 21:23 Dose: 10 mg Ondansetron HCl (Zofran Odt) 4 mg PO Q8H PRN PRN Reason: Nausea/Vomiting Pantoprazole Sodium (Protonix Ec Tab) 40 mg PO 0630 [facility] Last Admin: 07/08/17 06:26 Dose: 40 mg Paroxetine HCl (Paxil) 40 mg PO DAILY [facility] Last Admin: 07/08/17 08:35 Dose: 40 mg Quetiapine Fumarate (Seroquel) 25 mg PO HS [facility] Last Admin: 07/07/17 21:23 Dose: 25 mg - Labs Labs: 07/07/17 04:00 07/07/17 04:00 PT 12.9 Seconds (9.8-13.1) 07/06/17 05:40 INR 1.2 (0.9-1.2) 07/06/17 05:40 APTT 31.7 Seconds (25.6-37.1) 07/04/17 10:57 - Constitutional Appears: Non-toxic, No Acute Distress - Head Exam Head Exam: ATRAUMATIC, NORMOCEPHALIC - Eye Exam Eye Exam: Normal appearance - ENT Exam ENT Exam: Mucous Membranes Moist - Respiratory Exam Respiratory Exam: Clear to Ausculation Bilateral. absent: Rhonchi, Wheezes - Cardiovascular Exam Cardiovascular Exam: REGULAR RHYTHM, +S1, +S2 - GI/Abdominal Exam GI & Abdominal Exam: Soft, Normal Bowel Sounds. absent: Tenderness - Extremities Exam Additional comments: Left elbow hematoma. right knee anterior aspect hematoma.no signs of infection Left knee s/p TKR immobilizer in place - Back Exam Back Exam: NORMAL INSPECTION - Neurological Exam Neurological Exam: Alert, Awake, Oriented x3 - Psychiatric Exam Psychiatric exam: Normal Affect, Normal Mood - Skin Skin Exam: Normal Color Assessment and Plan - Assessment and Plan (Free Text) Plan: Assessment/Plan 1) s/p L TKR - Admit to acute rehab -c/w PT/OT - Pain management with Ultram/Tylenol as needed 2) AMS -may be secondary to delirium due to med side effects -CT head normal -Neuro consult appreciated -off from opioids and benzos -Seroquel QHS -Psyq consult pending 3) Type 2 DM - Glipizide/Metformin 4) Hypercholesterolemia - Lipitor 20 mg po HS 5) Essential HTN - Lisinopril 40 mg po daily 6) Anxiety - Continue Xanax PRN 7) GI prophylaxis - Protonix 40 mg po daily' 8) DVT prophylaxis - Lovenox 40 mg sc
--- NOTE | 2017-07-08 12:08 | PSY.TMCNF ---
Nursing - Vital Signs Vital Signs (Last 8 hours): Vital Signs 07/08/17 07/08/17 07/08/17 08:33 08:34 09:00 Temperature 97.9 F Pulse Rate 74 74 Respiratory 20 Rate Blood Pressure 112/64 112/64 112/64 O2 Sat by Pulse Oximetry 07/08/17 07/08/17 10:00 10:52 Temperature 98.0 F Pulse Rate 74 77 Respiratory 22 Rate Blood Pressure 112/64 125/77 O2 Sat by Pulse 99 Oximetry Pain: 1 - Precautions: Precautions: Fall Prevention - Medications/Other Issues Comment: (+) episode of confusion with paranoia yesterday afternoon. CT Scan done (-), Seen by Neuro and Psych with new orders made. Confusion and paranoia resolved this morning. - Consults Comment: DR. Castellano, Dr. Christensen, Dr. Bennett - Skin Incision Site: Left knee with anne Dressing Status: Clean, Dry, Intact Incision: Healing Well, Anne Intact, No Drainage Noted Incision Line Treatment: Cleanse with alcohol and HTML DEVELOPER, may cover with dressing prn drainage. - Toileting Toileting: Moderate Assistance - Bladder Management Bladder Pattern: Normal Voiding Method: Toilet, Bedpan Bladder Management: Dependent Frequency of Accidents: 5 ( no periods of accident noted in the past 3 days ) - Bowel Management Bowel Pattern: Normal, Incontinent Bowel Management: Dependent Frequency of Accidents: 3 ( no periods of accident noted in the past 3 days ) - Transfers Transfers: Moderate Assistance - ADL's ADL's: Maximal Assistance - Pain Management Comments: Tylenol PRN pain - Patient/Family Teaching Comments: - Care post TKR and safety precautions. - Care of patients during periods of confusion and agitation. - Seroquel medication education - Goals/Time Frame Comments: Per multidisciplinary care vannessa and goals - Provider Provider: Rosario GARCIAN RN CRRN Physical Therapy - Bed Mobility Bed Mobility: Verbal Cues, Minimal Assistance Comment: assistance to manage LLE - Transfers Sit to Stand: Verbal Cues, Contact Guard, Minimal Assistance - Ambulation Level of Assistance: Verbal Cues, Contact Guard Distance (ft.): 60 Assistive Devices: Rolling Walker - Stair Negotiation Stairs: Level of Assistance: Contact Guard, Minimal Assistance Number of Stairs: 6 Stairs: Assistive Devices: Left Handrail, Right Handrail - Standing Balance Static Stand: Minimal Assistance Dynamic Stand: Moderate Assistance - Pain Management Techniques: Medication, Ice, Position Change, Distraction, Inactivity - Insight/Carryover Insight/Carryover: Fair - Patient/Family Education Comment: -safety, therapy schedule, therapy goals, POC, mobility, knee immobilizer use, exercises for in room when not in therapy, safety, use of call forbes, TKR recovery, benefits of therapy - Assessment/Plan Assessment: Mr. Diaz is an 82 yo female presenting to rehab at [facility] s/p elective L TKR. pt presents with pain in L knee, anxiety and fear of wbing on LLE, unsteadiness on feet/impaired dynamic standing balance and impaired act tolerance impacting her ability to complete her self care routine safely and effectively. OT introduced DME/AE to patient in order to improve I with bathing/ dressing. patients is doing well and progressing towards LTGs/STGS. pt requires min A for transfers/mobility and min A for lb self care/toileting using ae/dme. Reccommend cont skilled IP OT services to maximize functional I. - Goals Timeframe: 7 days Goals: Mod I functional transfers. mod I commode transfer. supervision with tub bench transfers. supervision with lb bathing. mod I ub bathing. supervision with home mgmt tasks. - Provider Therapist: Beronica Castillo PT, DPT License Number: [id number] Occupational Therapy - Arousal/Attention/Orientation Patient Orientation: Person, Place - ADL/IADL Self Feeding: Supervision, Set-up Help Grooming: Supervision, Set-up Help Dressing-Upper Extremity: Supervision, Set-up Help Dressing-Lower Extremity: Minimal Assistance - Sitting Balance Static Sitting: Supervision Dynamic Sitting: Requires supervision - Transfers Wheelchair to Bed Transfers: Minimal Assistance Toilet Transfers: Minimal Assistance Tub Transfers: Minimal Assistance Comment: reccommend tub transfer bench for D/C home - Upper Extremity Status Right Upper Extremity Comment: WFL Left Upper Extremity Comment: WFL - Pain Alleviating Techniques: Medication, Ice, Position Change, Distraction, Inactivity - Insight/Carryover Insight/Carryover: Fair - Patient/Family Education Comment: -safety, therapy schedule, therapy goals, POC, mobility, knee immobilizer use, exercises for in room when not in therapy, safety, use of call forbes, TKR recovery, benefits of therapy - Assessment/Plan Assessment: Mr. Diaz is an 82 yo female presenting to rehab at [facility] s/ elective L TKR. pt presents with pain in L knee, anxiety and fear of wbing on LLE, unsteadiness on feet/impaired dynamic standing balance and impaired act tolerance impacting her ability to complete her self care routine safely and effectively. OT introduced DME/AE to patient in order to improve I with bathing/ dressing. patients is doing well and progressing towards LTGs/STGS. pt requires min A for transfers/mobility and min A for lb self care/toileting using ae/dme. Reccommend cont skilled IP OT services to maximize functional I. - Goals Timeframe: 7 days Goals: Mod I functional transfers. mod I commode transfer. supervision with tub bench transfers. supervision with lb bathing. mod I ub bathing. supervision with home mgmt tasks. - Provider Therapist: ADRYAN Dominguez/Gopal License Number: [id number] Speech Therapy - Plan Assessment: Mr. Diaz is an 82 yo female presenting to rehab at [facility] s/ elective L TKR. pt presents with pain in L knee, anxiety and fear of wbing on LLE, unsteadiness on feet/impaired dynamic standing balance and impaired act tolerance impacting her ability to complete her self care routine safely and effectively. OT introduced DME/AE to patient in order to improve I with bathing/ dressing. patients is doing well and progressing towards LTGs/STGS. pt requires min A for transfers/mobility and min A for lb self care/toileting using ae/dme. Reccommend cont skilled IP OT services to maximize functional I. Recreational Therapy - Participation Participation: Monitors His/Her Own Leisure Time - Attendance Attendance: Daily - Activities Leisure Activities: Television - Socialization Level of Socialization: Initiates/interacts freely with care givers and peer - Diversional Time Diversional Time: television, plays games on tablet - Assessment Assessment/Plan: Mr. Diaz is an 82 yo female presenting to rehab at [facility] s/ elective L TKR. pt presents with pain in L knee, anxiety and fear of wbing on LLE, unsteadiness on feet/impaired dynamic standing balance and impaired act tolerance impacting her ability to complete her self care routine safely and effectively. OT introduced DME/AE to patient in order to improve I with bathing/ dressing. patients is doing well and progressing towards LTGs/STGS. pt requires min A for transfers/mobility and min A for lb self care/toileting using ae/dme. Reccommend cont skilled IP OT services to maximize functional I. - Provider Therapist: Zeenat Jones, PUBLICATIONS INSPECTOR #[id number] Nutrition - Current Diet Current Diet/ Supplement/ Feedings: Moderate consistent CHO glucerna shake 8 ounces 2 per day - Appetite Percent Meal Consumed: 50-74% - Comments Comments: - Care post TKR and safety precautions. - Care of patients during periods of confusion and agitation. - Seroquel medication education - Assessment/Goals/Time Frame Assessment/Goals/Time Frame: (+) episode of confusion with paranoia yesterday afternoon. CT Scan done (-), Seen by Neuro and Psych with new orders made. Confusion and paranoia resolved this morning. - Provider Provider: Marjorie Parsons RD Case Management - Discharge Plan Discharge Plan: Home with significant other/family Rehabilitation Plan - Treatment Plan Treatment Plan: Physical Therapy, Occupational Therapy, Dietary, Patient/Family Education - Recommendation Recommendation: Physical Therapy, Occupational Therapy, Dietary, Patient/Family Education - Discharge Plan Discharge to: Home (Dc 30)
--- NOTE | 2017-07-08 12:48 | CP.PCM.PN ---
Subjective - Date & Time of Evaluation Date of Evaluation: 07/08/17 Time of Evaluation: 12:43 - Subjective Subjective: Ms. Diaz was seen and examined at the bedside. She is alert, oriented with episode of forgetfulness. She is able to participate in a conversation. She denies any headache, dizziness. She further claims of feeling much better in comparison from yesterday. She is able to tolerate breakfast and according to the family member, she does not have any hallucinations today. She is able to follow simple commands. There was no untoward events overnight. Objective - Vital Signs/Intake and Output Vital Signs (last 24 hours): Temp Pulse Resp BP Pulse Ox 98.0 F 77 22 125/77 99 07/08/17 10:52 07/08/17 10:52 07/08/17 10:52 07/08/17 10:52 07/08/17 10:52 - Medications Medications: Current Medications Acetaminophen (Tylenol 325mg Tab) 650 mg PO Q6 PRN PRN Reason: Pain 4-10 Last Admin: 07/08/17 08:31 Dose: 650 mg Alprazolam (Xanax) 1 mg PO BID PRN PRN Reason: Anxiety Last Admin: 07/05/17 08:05 Dose: 1 mg Aspirin (Ecotrin) 81 mg PO DAILY [facility] Last Admin: 07/08/17 08:35 Dose: 81 mg Atorvastatin Calcium (Lipitor) 20 mg PO HS [facility] Last Admin: 07/07/17 21:23 Dose: 20 mg Bacitracin (Bacitracin Oint) 1 applic TOP BID [facility] Last Admin: 07/08/17 08:32 Dose: 1 applic Calcium/Vitamin D (Oyster Shell Calcium/Vitamin D 500 Mg-200 Iu) 1 tab PO BID [facility] Last Admin: 07/08/17 08:32 Dose: 1 tab Clotrimazole (Lotrimin 1% Cream) 1 applic TOP BID [facility] Last Admin: 07/08/17 08:32 Dose: 1 applic Donepezil HCl (Aricept) 10 mg PO DAILY [facility] Last Admin: 07/08/17 08:33 Dose: 10 mg Enoxaparin Sodium (Lovenox) 40 mg SC DAILY [facility] PRN Reason: Protocol Last Admin: 07/08/17 08:32 Dose: 40 mg Glipizide (Glucotrol) 5 mg PO BIDWM [facility] Last Admin: 07/08/17 08:35 Dose: 5 mg Insulin Human Regular (Humulin R) 0 units SC ACHS [facility] PRN Reason: Protocol Last Admin: 07/08/17 12:14 Dose: 3 unit Lisinopril (Zestril) 40 mg PO DAILY [facility] Last Admin: 07/08/17 08:33 Dose: 40 mg Meclizine HCl (Antivert) 12.5 mg PO Q8 PRN PRN Reason: Dizziness Metformin HCl (Glucophage) 500 mg PO BIDWM [facility] Last Admin: 07/08/17 08:35 Dose: 500 mg Metoprolol Succinate (Toprol Xl) 100 mg PO DAILY [facility] Last Admin: 07/08/17 08:34 Dose: 100 mg Montelukast Sodium (Singulair) 10 mg PO [facility] Last Admin: 07/07/17 21:23 Dose: 10 mg Ondansetron HCl (Zofran Odt) 4 mg PO Q8H PRN PRN Reason: Nausea/Vomiting Pantoprazole Sodium (Protonix Ec Tab) 40 mg PO 0630 [facility] Last Admin: 07/08/17 06:26 Dose: 40 mg Paroxetine HCl (Paxil) 40 mg PO DAILY [facility] Last Admin: 07/08/17 08:35 Dose: 40 mg Quetiapine Fumarate (Seroquel) 25 mg PO [facility] Last Admin: 07/07/17 21:23 Dose: 25 mg - Labs Labs: 07/07/17 04:00 07/07/17 04:00 PT 12.9 Seconds (9.8-13.1) 07/06/17 05:40 INR 1.2 (0.9-1.2) 07/06/17 05:40 APTT 31.7 Seconds (25.6-37.1) 07/04/17 10:57 - Constitutional Appears: No Acute Distress - Head Exam Head Exam: NORMAL INSPECTION - Eye Exam Pupil Exam: PERRL - Neurological Exam Neurological Exam: Alert, Awake Neuro motor strength exam: Left Upper Extremity: 5, Right Upper Extremity: 5, Left Lower Extremity: 3, Right Lower Extremity: 3 Additional comments: Alert, oriented, follows commands, sensation is intact. Assessment and Plan (1) Hallucinations Assessment & Plan: Case discussed with Dr. Christensen, continue all current medical, physical, occupational therapies. Recommend to avoid any opiates and benzo to decrease any occurrence of hallucinations. Status: Acute
--- NOTE | 2017-07-08 15:33 | CP.PCM.CON ---
History of Present Illness - History of Present Illness History of Present Illness: consult requested for altered mental status Mrs. Diaz is an 82-year-old woman with a past medical history of osteoarthritis of the left knee, CKD, Type 2 DM, dementia (on Aricept), GERD, who is s/p left knee replacement (on July 01), pt yesterday afterchanges in medications, being placed on ultram, was noted to be confused irritable and paranoid, pt had visual halluciantions, seeing her daughter in the bathroom when she was not around and also believing her daughter had surgery and insisted that her daughter would show her her abdomen and that she has no wounds, ultram was stopped and pt was palced on seroquel 25mg qhs pt evaluated today with her daughter, calm cooperative, does not remember yesterday events, reported mood fine, alert and awake , oriented to person and partialy to place knowing she is in the hospital , not oriented to time, denied any current perceptual disturbances Past Patient History - Infectious Disease Hx of Infectious Diseases: None - Past Medical History & Family History Past Medical History?: Yes - Past Social History Smoking Status: Never Smoked - CARDIAC Hx Hypertension: Yes - PULMONARY Hx Respiratory Disorders: Yes Other/Comment: - "Breathing problems" (Denies any hx: asthma,. COPD, or pneumonia). Patient prescribed Singulair - NEUROLOGICAL Hx Dementia: Yes - HEENT Hx Cataracts: Yes (Hx. of bilateral cataract surgeries) - RENAL Hx Chronic Kidney Disease: Yes (JED on CKD) - ENDOCRINE/METABOLIC Hx Diabetes Mellitus Type 2: Yes - HEMATOLOGICAL/ONCOLOGICAL Hx AIDS: No Hx Human Immunodeficiency Virus (HIV): No - MUSCULOSKELETAL/RHEUMATOLOGICAL Hx Falls: Yes (Per dgt, > 5 times. Per patient, > 10 times in the last 3 months ) - PSYCHIATRIC Hx Anxiety: Yes Hx Substance Use: No - SURGICAL HISTORY Hx Surgeries: Yes Hx Orthopedic Surgery: Yes Other/Comment: -- Left total knee replacement 07/01/2017. -- Right kidney removal. -- Right ovarian and tubal removal. -- Right shoulder surgery - ANESTHESIA Hx Anesthesia: Yes Hx Anesthesia Reactions: No Hx Malignant Hyperthermia: No Has any member of the family had a problem w/ anesthesia?: No Meds Allergies/Adverse Reactions: Allergies Allergy/AdvReac Type Severity Reaction Status Date / Time Penicillins Allergy SHORTNESS Verified 07/04/17 00:22 OF BREATH - Medications Medications: Current Medications Acetaminophen (Tylenol 325mg Tab) 650 mg PO Q6 PRN PRN Reason: Pain 4-10 Last Admin: 07/08/17 08:31 Dose: 650 mg Alprazolam (Xanax) 1 mg PO BID PRN PRN Reason: Anxiety Last Admin: 07/05/17 08:05 Dose: 1 mg Aspirin (Ecotrin) 81 mg PO DAILY [facility] Last Admin: 07/08/17 08:35 Dose: 81 mg Atorvastatin Calcium (Lipitor) 20 mg PO HS [facility] Last Admin: 07/07/17 21:23 Dose: 20 mg Bacitracin (Bacitracin Oint) 1 applic TOP BID [facility] Last Admin: 07/08/17 08:32 Dose: 1 applic Calcium/Vitamin D (Oyster Shell Calcium/Vitamin D 500 Mg-200 Iu) 1 tab PO BID [facility] Last Admin: 07/08/17 08:32 Dose: 1 tab Clotrimazole (Lotrimin 1% Cream) 1 applic TOP BID [facility] Last Admin: 07/08/17 08:32 Dose: 1 applic Donepezil HCl (Aricept) 10 mg PO DAILY [facility] Last Admin: 07/08/17 08:33 Dose: 10 mg Enoxaparin Sodium (Lovenox) 40 mg SC DAILY [facility] PRN Reason: Protocol Last Admin: 07/08/17 08:32 Dose: 40 mg Glipizide (Glucotrol) 5 mg PO BIDWM [facility] Last Admin: 07/08/17 08:35 Dose: 5 mg Insulin Human Regular (Humulin R) 0 units SC [facility] PRN Reason: Protocol Last Admin: 07/08/17 12:14 Dose: 3 unit Lisinopril (Zestril) 40 mg PO DAILY [facility] Last Admin: 07/08/17 08:33 Dose: 40 mg Meclizine HCl (Antivert) 12.5 mg PO Q8 PRN PRN Reason: Dizziness Metformin HCl (Glucophage) 500 mg PO BIDWM [facility] Last Admin: 07/08/17 08:35 Dose: 500 mg Metoprolol Succinate (Toprol Xl) 100 mg PO DAILY [facility] Last Admin: 07/08/17 08:34 Dose: 100 mg Montelukast Sodium (Singulair) 10 mg PO HS [facility] Last Admin: 07/07/17 21:23 Dose: 10 mg Ondansetron HCl (Zofran Odt) 4 mg PO Q8H PRN PRN Reason: Nausea/Vomiting Pantoprazole Sodium (Protonix Ec Tab) 40 mg PO 0630 [facility] Last Admin: 07/08/17 06:26 Dose: 40 mg Paroxetine HCl (Paxil) 40 mg PO DAILY [facility] Last Admin: 07/08/17 08:35 Dose: 40 mg Quetiapine Fumarate (Seroquel) 25 mg PO HS [facility] Last Admin: 07/07/17 21:23 Dose: 25 mg Physical Exam - Psychiatric Exam Additional comments: pt seen in bed . calm cooperative goog eye contact alert awake oriented to person partialy to place, mood reported fine , appropriate affect, denied perceptual disturbances, denied suicidal or homicidal ideation Results - Vital Signs Recent Vital Signs: Last Vital Signs Temp 98.0 F 07/08/17 10:52 Pulse 77 07/08/17 10:52 Resp 22 07/08/17 10:52 BP 125/77 07/08/17 10:52 Pulse Ox 99 07/08/17 10:52 - Labs Result Diagrams: 07/07/17 04:00 07/07/17 04:00 Labs: Laboratory Results - last 24 hr 07/07/17 07/07/17 07/08/17 16:20 21:06 06:28 POC Glucose (mg/dL) 157 H 132 H 105 07/08/17 11:24 POC Glucose (mg/dL) 256 H Assessment & Plan - Assessment and Plan (Free Text) Assessment: delirium anticholinergic type dementia Plan: recommend decrease seroquel to 12.5mg qhs prn decrease paxil to 30mg and change to qhs due to sedating and anticholinergic properties discontinue xanax 1mg q12prn, start ativan 0.5mg bid prn for anxiety
--- NOTE | 2017-07-08 20:41 | CP.PCM.PN ---
Subjective - Date & Time of Evaluation Date of Evaluation: 07/08/17 Time of Evaluation: 13:00 - Subjective Subjective: no acute complaints of any knee pain Objective - Vital Signs/Intake and Output Vital Signs (last 24 hours): Temp Pulse Resp BP Pulse Ox 97.0 F L 87 20 122/66 96 07/08/17 20:10 07/08/17 20:10 07/08/17 20:10 07/08/17 20:10 07/08/17 20:10 - Medications Medications: Current Medications Acetaminophen (Tylenol 325mg Tab) 650 mg PO Q6 PRN PRN Reason: Pain 4-10 Last Admin: 07/08/17 17:40 Dose: 650 mg Alprazolam (Xanax) 1 mg PO BID PRN PRN Reason: Anxiety Last Admin: 07/05/17 08:05 Dose: 1 mg Aspirin (Ecotrin) 81 mg PO DAILY [facility] Last Admin: 07/08/17 08:35 Dose: 81 mg Atorvastatin Calcium (Lipitor) 20 mg PO HS [facility] Last Admin: 07/07/17 21:23 Dose: 20 mg Bacitracin (Bacitracin Oint) 1 applic TOP BID [facility] Last Admin: 07/08/17 16:31 Dose: 1 applic Calcium/Vitamin D (Oyster Shell Calcium/Vitamin D 500 Mg-200 Iu) 1 tab PO BID [facility] Last Admin: 07/08/17 16:33 Dose: 1 tab Clotrimazole (Lotrimin 1% Cream) 1 applic TOP BID [facility] Last Admin: 07/08/17 16:31 Dose: 1 applic Donepezil HCl (Aricept) 10 mg PO DAILY [facility] Last Admin: 07/08/17 08:33 Dose: 10 mg Enoxaparin Sodium (Lovenox) 40 mg SC DAILY [facility] PRN Reason: Protocol Last Admin: 07/08/17 08:32 Dose: 40 mg Glipizide (Glucotrol) 5 mg PO BIDWM [facility] Last Admin: 07/08/17 16:33 Dose: 5 mg Insulin Human Regular (Humulin R) 0 units SC [facility] PRN Reason: Protocol Last Admin: 07/08/17 16:32 Dose: Not Given Lisinopril (Zestril) 40 mg PO DAILY [facility] Last Admin: 07/08/17 08:33 Dose: 40 mg Meclizine HCl (Antivert) 12.5 mg PO Q8 PRN PRN Reason: Dizziness Metformin HCl (Glucophage) 500 mg PO BIDWM [facility] Last Admin: 07/08/17 16:33 Dose: 500 mg Metoprolol Succinate (Toprol Xl) 100 mg PO DAILY [facility] Last Admin: 07/08/17 08:34 Dose: 100 mg Montelukast Sodium (Singulair) 10 mg PO HS [facility] Last Admin: 07/07/17 21:23 Dose: 10 mg Ondansetron HCl (Zofran Odt) 4 mg PO Q8H PRN PRN Reason: Nausea/Vomiting Pantoprazole Sodium (Protonix Ec Tab) 40 mg PO 0630 [facility] Last Admin: 07/08/17 06:26 Dose: 40 mg Paroxetine HCl (Paxil) 40 mg PO DAILY [facility] Last Admin: 07/08/17 08:35 Dose: 40 mg Quetiapine Fumarate (Seroquel) 25 mg PO [facility] Last Admin: 07/07/17 21:23 Dose: 25 mg - Labs Labs: 07/07/17 04:00 07/07/17 04:00 PT 12.9 Seconds (9.8-13.1) 07/06/17 05:40 INR 1.2 (0.9-1.2) 07/06/17 05:40 APTT 31.7 Seconds (25.6-37.1) 07/04/17 10:57 - Head Exam Head Exam: ATRAUMATIC, NORMAL INSPECTION, NORMOCEPHALIC - Eye Exam Eye Exam: EOMI, Normal appearance Pupil Exam: NORMAL ACCOMODATION, PERRL - Neck Exam Neck Exam: Full ROM, Normal Inspection - Respiratory Exam Respiratory Exam: Clear to Ausculation Bilateral, NORMAL BREATHING PATTERN - Cardiovascular Exam Cardiovascular Exam: REGULAR RHYTHM - GI/Abdominal Exam GI & Abdominal Exam: Normal Bowel Sounds - Exam External exam: NORMAL EXTERNAL EXAM - Extremities Exam Extremities Exam: Full ROM, Normal Capillary Refill, Normal Inspection - Back Exam Back Exam: NORMAL INSPECTION - Neurological Exam Neurological Exam: Alert, Awake Neuro motor strength exam: Left Lower Extremity: 3 - Psychiatric Exam Psychiatric exam: Normal Affect, Normal Mood - Skin Skin Exam: Dry, Normal Color Assessment and Plan (1) S/P TKR (total knee replacement) Assessment & Plan: status post team conference for Dc for july 17 discussed with daughter, pt ot therapy Status: Acute
[2017-07-09] MEDS: Pantoprazole 40 mg EC Tab PO SCH (05:36)
[2017-07-09] MEDS: Insulin Regular 100 units/ml SC SCH ×4 (06:30→22:11)
[2017-07-09] MEDS: Enoxaparin 40 mg Syringe SC SCH (08:53)
[2017-07-09] MEDS: Bacitracin OINT 15GM TOP SCH ×2 (08:53→16:56)
[2017-07-09] MEDS: Calcium-Vit D 500 mg-200 Units Tab UD PO SCH ×2 (08:53→16:58)
[2017-07-09] MEDS: Metoprolol Succinate 100 mg XL Tab PO SCH (08:57)
--- NOTE | 2017-07-09 09:21 | CP.PCM.PN ---
Subjective - Date & Time of Evaluation Date of Evaluation: 07/09/17 Time of Evaluation: 07:10 - Subjective Subjective: Patient seen and examined bedside with Dr Mederos. Patient reports feeling better today. Denies chest pain, SOB, fever, abd pain. No overnight events. No more episodes of hallucination Psyq consult appreciated. Change of meds as suggested Neuro consult appreciated Will do anemia work up Objective - Vital Signs/Intake and Output Vital Signs (last 24 hours): Temp Pulse Resp BP Pulse Ox 98.0 F 94 H 22 123/69 100 07/09/17 08:39 07/09/17 08:57 07/09/17 08:39 07/09/17 08:57 07/09/17 08:39 - Medications Medications: Current Medications Acetaminophen (Tylenol 325mg Tab) 650 mg PO Q6 PRN PRN Reason: Pain 4-10 Last Admin: 07/09/17 01:15 Dose: 650 mg Alprazolam (Xanax) 1 mg PO BID PRN PRN Reason: Anxiety Last Admin: 07/05/17 08:05 Dose: 1 mg Aspirin (Ecotrin) 81 mg PO DAILY [facility] Last Admin: 07/09/17 08:55 Dose: 81 mg Atorvastatin Calcium (Lipitor) 20 mg PO HS [facility] Last Admin: 07/08/17 21:54 Dose: 20 mg Bacitracin (Bacitracin Oint) 1 applic TOP BID [facility] Last Admin: 07/09/17 08:53 Dose: 1 applic Calcium/Vitamin D (Oyster Shell Calcium/Vitamin D 500 Mg-200 Iu) 1 tab PO BID [facility] Last Admin: 07/09/17 08:53 Dose: 1 tab Clotrimazole (Lotrimin 1% Cream) 1 applic TOP BID [facility] Last Admin: 07/09/17 08:55 Dose: 1 applic Donepezil HCl (Aricept) 10 mg PO DAILY [facility] Last Admin: 07/09/17 09:03 Dose: 10 mg Enoxaparin Sodium (Lovenox) 40 mg SC DAILY [facility] PRN Reason: Protocol Last Admin: 07/09/17 08:53 Dose: 40 mg Glipizide (Glucotrol) 5 mg PO BIDWM [facility] Last Admin: 07/09/17 08:54 Dose: 5 mg Insulin Human Regular (Humulin R) 0 units SC [facility] PRN Reason: Protocol Last Admin: 07/09/17 06:30 Dose: Not Given Lisinopril (Zestril) 40 mg PO DAILY [facility] Last Admin: 07/09/17 08:56 Dose: 40 mg Meclizine HCl (Antivert) 12.5 mg PO Q8 PRN PRN Reason: Dizziness Metformin HCl (Glucophage) 500 mg PO BIDWM [facility] Last Admin: 07/09/17 08:55 Dose: 500 mg Metoprolol Succinate (Toprol Xl) 100 mg PO DAILY [facility] Last Admin: 07/09/17 08:57 Dose: 100 mg Montelukast Sodium (Singulair) 10 mg PO HS [facility] Last Admin: 07/08/17 21:55 Dose: 10 mg Ondansetron HCl (Zofran Odt) 4 mg PO Q8H PRN PRN Reason: Nausea/Vomiting Pantoprazole Sodium (Protonix Ec Tab) 40 mg PO 0630 [facility] Last Admin: 07/09/17 05:36 Dose: 40 mg Paroxetine HCl (Paxil) 40 mg PO DAILY [facility] Last Admin: 07/09/17 08:55 Dose: 40 mg Quetiapine Fumarate (Seroquel) 25 mg PO HS [facility] Last Admin: 07/08/17 21:55 Dose: 25 mg - Labs Labs: 07/07/17 04:00 07/07/17 04:00 PT 12.9 Seconds (9.8-13.1) 07/06/17 05:40 INR 1.2 (0.9-1.2) 07/06/17 05:40 APTT 31.7 Seconds (25.6-37.1) 07/04/17 10:57 - Constitutional Appears: Non-toxic, No Acute Distress - Head Exam Head Exam: ATRAUMATIC, NORMOCEPHALIC - Eye Exam Eye Exam: Normal appearance - ENT Exam ENT Exam: Mucous Membranes Moist - Respiratory Exam Respiratory Exam: Clear to Ausculation Bilateral. absent: Rales, Rhonchi, Wheezes - Cardiovascular Exam Cardiovascular Exam: REGULAR RHYTHM, +S1, +S2 - GI/Abdominal Exam GI & Abdominal Exam: Soft, Normal Bowel Sounds. absent: Tenderness - Extremities Exam Additional comments: Left elbow hematoma. right knee anterior aspect hematoma.no signs of infection Left knee s/p TKR immobilizer in place Assessment and Plan - Assessment and Plan (Free Text) Plan: Assessment/Plan 1) s/p L TKR -c/w PT/OT - Pain management. Ultram dc 2) AMS -resolved -may be secondary to delirium due to med side effects -CT head normal -Neuro consult appreciated -off from opioids and benzos -Psyq consult appreciated: DC Xanax. Ativan 0.5 mg PO BID PRN agitation, decreased Seroquel 12.5, Paxil decreased 30 mg QHS 3) Anemia -may be of chronic disease -f/u anemia work up 4) Type 2 DM - Glipizide/Metformin 5) Hypercholesterolemia - Lipitor 20 mg po HS 6) Essential HTN - Lisinopril 40 mg po daily 7) Anxiety - Continue Xanax PRN 8) GI prophylaxis - Protonix 40 mg po daily' 9) DVT prophylaxis - Lovenox 40 mg sc
--- NOTE | 2017-07-09 10:37 | CP.PCM.PN ---
Subjective - Date & Time of Evaluation Date of Evaluation: 07/09/17 Time of Evaluation: 10:36 - Subjective Subjective: Ms. Diaz was seen and examined at the bedside. She is alert, oriented with episode of forgetfulness. 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 She is able to participate in a conversation. She denies any headache, dizziness. She further claims of feeling much better in comparison from yesterday. She is able to tolerate breakfast and according to the family member, she does not have any hallucinations today. She is able to follow simple commands. There was no untoward events overnight. Objective - Vital Signs/Intake and Output Vital Signs (last 24 hours): Temp Pulse Resp BP Pulse Ox 98.0 F 94 H 22 123/69 100 07/09/17 08:39 07/09/17 08:57 07/09/17 08:39 07/09/17 08:57 07/09/17 08:39 - Medications Medications: Current Medications Acetaminophen (Tylenol 325mg Tab) 650 mg PO Q6 PRN PRN Reason: Pain 4-10 Last Admin: 07/09/17 01:15 Dose: 650 mg Alprazolam (Xanax) 1 mg PO BID PRN PRN Reason: Anxiety Last Admin: 07/05/17 08:05 Dose: 1 mg Aspirin (Ecotrin) 81 mg PO DAILY [facility] Last Admin: 07/09/17 08:55 Dose: 81 mg Atorvastatin Calcium (Lipitor) 20 mg PO HS [facility] Last Admin: 07/08/17 21:54 Dose: 20 mg Bacitracin (Bacitracin Oint) 1 applic TOP BID [facility] Last Admin: 07/09/17 08:53 Dose: 1 applic Calcium/Vitamin D (Oyster Shell Calcium/Vitamin D 500 Mg-200 Iu) 1 tab PO BID [facility] Last Admin: 07/09/17 08:53 Dose: 1 tab Clotrimazole (Lotrimin 1% Cream) 1 applic TOP BID [facility] Last Admin: 07/09/17 08:55 Dose: 1 applic Donepezil HCl (Aricept) 10 mg PO DAILY [facility] Last Admin: 07/09/17 09:03 Dose: 10 mg Enoxaparin Sodium (Lovenox) 40 mg SC DAILY [facility] PRN Reason: Protocol Last Admin: 05/24/18 08:53 Dose: 40 mg Glipizide (Glucotrol) 5 mg PO BIDWM [facility] Last Admin: 07/09/17 08:54 Dose: 5 mg Insulin Human Regular (Humulin R) 0 units SC [facility] PRN Reason: Protocol Last Admin: 07/09/17 06:30 Dose: Not Given Lisinopril (Zestril) 40 mg PO DAILY [facility] Last Admin: 07/09/17 08:56 Dose: 40 mg Meclizine HCl (Antivert) 12.5 mg PO Q8 PRN PRN Reason: Dizziness Metformin HCl (Glucophage) 500 mg PO BIDWM [facility] Last Admin: 07/09/17 08:55 Dose: 500 mg Metoprolol Succinate (Toprol Xl) 100 mg PO DAILY [facility] Last Admin: 07/09/17 08:57 Dose: 100 mg Montelukast Sodium (Singulair) 10 mg PO [facility] Last Admin: 07/08/17 21:55 Dose: 10 mg Ondansetron HCl (Zofran Odt) 4 mg PO Q8H PRN PRN Reason: Nausea/Vomiting Pantoprazole Sodium (Protonix Ec Tab) 40 mg PO 0630 [facility] Last Admin: 07/09/17 05:36 Dose: 40 mg Paroxetine HCl (Paxil) 40 mg PO DAILY [facility] Last Admin: 07/09/17 08:55 Dose: 40 mg Quetiapine Fumarate (Seroquel) 25 mg PO [facility] Last Admin: 07/08/17 21:55 Dose: 25 mg - Labs Labs: 07/07/17 04:00 07/07/17 04:00 PT 12.9 Seconds (9.8-13.1) 07/06/17 05:40 INR 1.2 (0.9-1.2) 07/06/17 05:40 APTT 31.7 Seconds (25.6-37.1) 07/04/17 10:57 - Constitutional Appears: No Acute Distress - Head Exam Head Exam: NORMAL INSPECTION - Eye Exam Pupil Exam: PERRL - Neurological Exam Neurological Exam: Alert, Awake, Oriented x3 Neuro motor strength exam: Left Upper Extremity: 5, Right Upper Extremity: 5, Left Lower Extremity: 3, Right Lower Extremity: 3 Additional comments: Neurological unchanged from previous examination. Assessment and Plan (1) Hallucinations Assessment & Plan: Case discussed with Dr. Christensen, continue all current medical, physical, occupational therapies. Recommend to avoid any opiates, ambien,and benzo to decrease any occurrence of hallucinations. The patient is on seroquel 25 mg PO Q HS. Status: Acute
[2017-07-09 11:13] LABS: BASO % 0.6 % (0.0-2.0); EOS # 0.3 K/uL (0.0-0.7); EOS % 3.6 % (0.0-4.0); HEMOGLOBIN 9.5 g/dL (12.0-16.0); LYMPH # 1.3 K/uL (1.0-4.3); LYMPH % 16.5 % (20.0-40.0); MEAN CELL VOLUME 89.9 fl (81.0-99.0); MEAN CORPUSCULAR HEMOGLOBIN 29.3 pg (27.0-31.0); MEAN CORPUSCULAR HGB CONC 32.6 g/dL (33.0-37.0); MEAN PLATELET VOLUME 9.5 fl (7.2-11.7); MONO # 0.7 K/uL (0.0-0.8); MONO % 9.2 % (0.0-10.0); NEUT # 5.3 K/uL (1.8-7.0); NEUT % 70.1 % (50.0-75.0); NRBC % 0.2 % (0.0-0.0); PLATELET COUNT 332 K/uL (130-400); RBC 3.24 Mil/uL (3.80-5.20); RED CELL DISTRIBUTION WIDTH 14.8 % (11.5-14.5); WHITE BLOOD COUNT 7.6 K/uL (4.8-10.8)
[2017-07-09 11:29] LABS: IRON 36 ug/dL (37-170)
[2017-07-09 11:38] LABS: % IRON SATURATION 12 % (20-55); TOTAL IRON BINDING CAPACITY 309 ug/dL (250-450)
[2017-07-09 12:02] LABS: FERRITIN 66.3 ng/Ml (11.1-264.0)
[2017-07-09 14:12] LABS: ANISOCYTOSIS SLIGHT; BANDS 1 % (0-2); BASOPHIL 1 % (0-2); EOSINOPHIL 4 % (0-7); HYPOCHROMIC SLIGHT; LYMPHOCYTE 12 % (20-50); MONOCYTE 6 % (0-10); NEUTROPHIL 68 % (42-75); PLATELET ESTIMATE NORMAL (NORMAL); POIKILOCYTOSIS SLIGHT; REACTIVE LYMPHOCYTES 8 % (0-0)
[2017-07-09 14:13] LABS: LARGE PLATELETS PRESENT; OVALOCYTES SLIGHT
[2017-07-09 14:16] LABS: TOTAL CELLS COUNTED 100
[2017-07-09 22:58] LABS: FOLATE > 20.0 ng/mL
[2017-07-10] MEDS: Pantoprazole 40 mg EC Tab PO SCH (06:21)
[2017-07-10] MEDS: Insulin Regular 100 units/ml SC SCH ×4 (07:04→23:01)
[2017-07-10] MEDS: Bacitracin OINT 15GM TOP SCH ×2 (08:47→17:32)
[2017-07-10] MEDS: Calcium-Vit D 500 mg-200 Units Tab UD PO SCH ×2 (08:49→17:33)
[2017-07-10] MEDS: Enoxaparin 40 mg Syringe SC SCH (08:49)
[2017-07-10] MEDS: Metoprolol Succinate 100 mg XL Tab PO SCH (08:51)
--- NOTE | 2017-07-10 08:57 | CP.PCM.PN ---
Subjective - Date & Time of Evaluation Date of Evaluation: 07/10/17 Time of Evaluation: 07:35 - Subjective Subjective: Patient seen and examined bedside with Dr Mederos. Patient AAO x 3, no episodes of hallucination. No overnight events. reports feeling better today. Denies chest pain, SOB, fever, abd pain Objective - Vital Signs/Intake and Output Vital Signs (last 24 hours): Temp Pulse Resp BP Pulse Ox 97.4 F L 94 H 20 114/66 97 07/09/17 20:57 07/10/17 08:51 07/09/17 20:57 07/10/17 08:51 07/09/17 20:57 - Medications Medications: Current Medications Acetaminophen (Tylenol 325mg Tab) 650 mg PO Q6 PRN PRN Reason: Pain 4-10 Last Admin: 07/09/17 20:10 Dose: 650 mg Aspirin (Ecotrin) 81 mg PO DAILY [facility] Last Admin: 07/10/17 08:47 Dose: 81 mg Atorvastatin Calcium (Lipitor) 20 mg PO HS [facility] Last Admin: 07/09/17 21:30 Dose: 20 mg Bacitracin (Bacitracin Oint) 1 applic TOP BID [facility] Last Admin: 07/10/17 08:47 Dose: 1 applic Calcium/Vitamin D (Oyster Shell Calcium/Vitamin D 500 Mg-200 Iu) 1 tab PO BID [facility] Last Admin: 07/10/17 08:49 Dose: 1 tab Clotrimazole (Lotrimin 1% Cream) 1 applic TOP BID [facility] Last Admin: 07/10/17 08:48 Dose: 1 applic Donepezil HCl (Aricept) 10 mg PO DAILY [facility] Last Admin: 07/10/17 08:47 Dose: 10 mg Enoxaparin Sodium (Lovenox) 40 mg SC DAILY [facility] PRN Reason: Protocol Last Admin: 07/10/17 08:49 Dose: 40 mg Glipizide (Glucotrol) 5 mg PO BIDWM [facility] Last Admin: 07/10/17 08:49 Dose: 5 mg Insulin Human Regular (Humulin R) 0 units SC ACHS [facility] PRN Reason: Protocol Last Admin: 07/10/17 07:04 Dose: Not Given Lisinopril (Zestril) 40 mg PO DAILY [facility] Last Admin: 07/10/17 08:50 Dose: 40 mg Lorazepam (Ativan) 0.5 mg PO BID PRN PRN Reason: Agitation Meclizine HCl (Antivert) 12.5 mg PO Q8 PRN PRN Reason: Dizziness Metformin HCl (Glucophage) 500 mg PO BIDWM [facility] Last Admin: 07/10/17 08:47 Dose: 500 mg Metoprolol Succinate (Toprol Xl) 100 mg PO DAILY [facility] Last Admin: 07/10/17 08:51 Dose: 100 mg Montelukast Sodium (Singulair) 10 mg PO HS [facility] Last Admin: 07/09/17 21:30 Dose: 10 mg Ondansetron HCl (Zofran Odt) 4 mg PO Q8H PRN PRN Reason: Nausea/Vomiting Pantoprazole Sodium (Protonix Ec Tab) 40 mg PO 0630 [facility] Last Admin: 07/10/17 06:21 Dose: 40 mg Paroxetine HCl (Paxil) 30 mg PO DAILY [facility] Quetiapine Fumarate (Seroquel) 12.5 mg PO [facility] Last Admin: 07/09/17 21:30 Dose: 12.5 mg - Labs Labs: 07/09/17 11:03 07/07/17 04:00 PT 12.9 Seconds (9.8-13.1) 07/06/17 05:40 INR 1.2 (0.9-1.2) 07/06/17 05:40 APTT 31.7 Seconds (25.6-37.1) 07/04/17 10:57 - Constitutional Appears: Non-toxic, No Acute Distress - Head Exam Head Exam: ATRAUMATIC, NORMOCEPHALIC - ENT Exam ENT Exam: Mucous Membranes Moist - Respiratory Exam Respiratory Exam: Clear to Ausculation Bilateral. absent: Rhonchi, Wheezes - Cardiovascular Exam Cardiovascular Exam: REGULAR RHYTHM, +S1, +S2 - GI/Abdominal Exam GI & Abdominal Exam: Soft, Normal Bowel Sounds. absent: Tenderness - Extremities Exam Extremities Exam: Normal Inspection. absent: Pedal Edema Additional comments: Left elbow hematoma. right knee anterior aspect hematoma.no signs of infection Left knee s/p TKR immobilizer in place - Neurological Exam Neurological Exam: Alert, Awake, Oriented x3 Assessment and Plan - Assessment and Plan (Free Text) Plan: Assessment/Plan 1) s/p L TKR -c/w PT/OT - Pain management. Ultram dc 2) AMS -resolved -may be secondary to delirium due to med side effects -CT head normal -Neuro consult appreciated -off from opioids and benzos -Psyq consult appreciated: DC Xanax. Ativan 0.5 mg PO BID PRN agitation, Decreased Seroquel 12.5, Paxil decreased 30 mg QHS 3) Anemia -2/2 iron deficiency - mild low iron and iron sat -TIBC normal, LDH normal -ferrous sulfate 1 tab BID 4) Type 2 DM - Glipizide/Metformin 5) Hypercholesterolemia - Lipitor 20 mg po HS 6) Essential HTN - Lisinopril 40 mg po daily 7) Anxiety - Continue Xanax PRN 8) GI prophylaxis - Protonix 40 mg po daily' 9) DVT prophylaxis - Lovenox 40 mg sc
--- NOTE | 2017-07-10 12:52 | CP.PCM.PN ---
Subjective - Date & Time of Evaluation Date of Evaluation: 07/10/17 Time of Evaluation: 10:00 - Subjective Subjective: no acute complaints at present Objective - Vital Signs/Intake and Output Vital Signs (last 24 hours): Temp Pulse Resp BP Pulse Ox 97.0 F L 94 H 22 114/66 96 07/10/17 09:57 07/10/17 09:57 07/10/17 09:57 07/10/17 09:57 07/10/17 09:01 - Medications Medications: Current Medications Acetaminophen (Tylenol 325mg Tab) 650 mg PO Q6 PRN PRN Reason: Pain 4-10 Last Admin: 07/10/17 08:57 Dose: 650 mg Aspirin (Ecotrin) 81 mg PO DAILY [facility] Last Admin: 07/10/17 08:47 Dose: 81 mg Atorvastatin Calcium (Lipitor) 20 mg PO HS [facility] Last Admin: 07/09/17 21:30 Dose: 20 mg Bacitracin (Bacitracin Oint) 1 applic TOP BID [facility] Last Admin: 07/10/17 08:47 Dose: 1 applic Calcium/Vitamin D (Oyster Shell Calcium/Vitamin D 500 Mg-200 Iu) 1 tab PO BID [facility] Last Admin: 07/10/17 08:49 Dose: 1 tab Clotrimazole (Lotrimin 1% Cream) 1 applic TOP BID [facility] Last Admin: 07/10/17 08:48 Dose: 1 applic Donepezil HCl (Aricept) 10 mg PO DAILY [facility] Last Admin: 07/10/17 08:47 Dose: 10 mg Enoxaparin Sodium (Lovenox) 40 mg SC DAILY [facility] PRN Reason: Protocol Last Admin: 07/10/17 08:49 Dose: 40 mg Ferrous Sulfate (Feosol) 325 mg PO BID [facility] Glipizide (Glucotrol) 5 mg PO BIDWM [facility] Last Admin: 07/10/17 08:49 Dose: 5 mg Insulin Human Regular (Humulin R) 0 units SC [facility] PRN Reason: Protocol Last Admin: 07/10/17 12:33 Dose: 2 unit Lisinopril (Zestril) 40 mg PO DAILY [facility] Last Admin: 07/10/17 08:50 Dose: 40 mg Lorazepam (Ativan) 0.5 mg PO BID PRN PRN Reason: Agitation Meclizine HCl (Antivert) 12.5 mg PO Q8 PRN PRN Reason: Dizziness Metformin HCl (Glucophage) 500 mg PO BIDWM [facility] Last Admin: 07/10/17 08:47 Dose: 500 mg Metoprolol Succinate (Toprol Xl) 100 mg PO DAILY [facility] Last Admin: 07/10/17 08:51 Dose: 100 mg Montelukast Sodium (Singulair) 10 mg PO [facility] Last Admin: 07/09/17 21:30 Dose: 10 mg Ondansetron HCl (Zofran Odt) 4 mg PO Q8H PRN PRN Reason: Nausea/Vomiting Pantoprazole Sodium (Protonix Ec Tab) 40 mg PO 0630 [facility] Last Admin: 07/10/17 06:21 Dose: 40 mg Paroxetine HCl (Paxil) 30 mg PO DAILY [facility] Quetiapine Fumarate (Seroquel) 12.5 mg PO [facility] Last Admin: 07/09/17 21:30 Dose: 12.5 mg - Labs Labs: 07/09/17 11:03 07/07/17 04:00 PT 12.9 Seconds (9.8-13.1) 07/06/17 05:40 INR 1.2 (0.9-1.2) 07/06/17 05:40 APTT 31.7 Seconds (25.6-37.1) 07/04/17 10:57 - Head Exam Head Exam: ATRAUMATIC, NORMAL INSPECTION, NORMOCEPHALIC - Eye Exam Eye Exam: EOMI, Normal appearance, PERRL Pupil Exam: NORMAL ACCOMODATION - ENT Exam ENT Exam: Mucous Membranes Moist, Normal Exam - Neck Exam Neck Exam: Normal Inspection - Respiratory Exam Respiratory Exam: Clear to Ausculation Bilateral, NORMAL BREATHING PATTERN - Cardiovascular Exam Cardiovascular Exam: REGULAR RHYTHM - GI/Abdominal Exam GI & Abdominal Exam: Soft, Normal Bowel Sounds - Rectal Exam Rectal Exam: NORMAL INSPECTION - Exam External exam: NORMAL EXTERNAL EXAM - Extremities Exam Extremities Exam: Full ROM, Normal Capillary Refill, Normal Inspection - Back Exam Back Exam: NORMAL INSPECTION - Neurological Exam Neurological Exam: Alert, Awake Neuro motor strength exam: Left Upper Extremity: 4, Right Upper Extremity: 4, Left Lower Extremity: 3, Right Lower Extremity: 4 - Psychiatric Exam Psychiatric exam: Normal Affect, Normal Mood - Skin Skin Exam: Dry, Intact Assessment and Plan (1) S/P TKR (total knee replacement) Assessment & Plan: plan for physical, occupational and rec therapy monitor blood sugar Status: Acute
[2017-07-11] MEDS: Pantoprazole 40 mg EC Tab PO SCH (06:35)
[2017-07-11] MEDS: Insulin Regular 100 units/ml SC SCH ×4 (06:38→21:00)
[2017-07-11] MEDS: Bacitracin OINT 15GM TOP SCH ×2 (09:01→17:17)
[2017-07-11] MEDS: Calcium-Vit D 500 mg-200 Units Tab UD PO SCH ×2 (09:03→17:18)
[2017-07-11] MEDS: Enoxaparin 40 mg Syringe SC SCH (09:05)
[2017-07-11] MEDS: Metoprolol Succinate 100 mg XL Tab PO SCH (09:06)
--- NOTE | 2017-07-11 19:20 | CP.PCM.PN ---
Subjective - Date & Time of Evaluation Date of Evaluation: 07/11/17 Time of Evaluation: 19:19 - Subjective Subjective: Dr Todd PMR coverage for Dr Booker Left TKR doing well incision is CDI no erythema pain is controlled no calf tenderness strong UEs no constipation no CP/SOB afebrile continue current care excellent acute rehab candidate Objective - Vital Signs/Intake and Output Vital Signs (last 24 hours): Temp Pulse Resp BP Pulse Ox 97.9 F 95 H 19 130/73 96 07/11/17 07:54 07/11/17 09:06 07/11/17 07:54 07/11/17 09:06 07/11/17 07:54 - Medications Medications: Current Medications Acetaminophen (Tylenol 325mg Tab) 650 mg PO Q6 PRN PRN Reason: Pain 4-10 Last Admin: 07/11/17 09:01 Dose: 650 mg Aspirin (Ecotrin) 81 mg PO DAILY [facility] Last Admin: 07/11/17 09:04 Dose: 81 mg Atorvastatin Calcium (Lipitor) 20 mg PO HS [facility] Last Admin: 07/10/17 21:28 Dose: 20 mg Bacitracin (Bacitracin Oint) 1 applic TOP BID [facility] Last Admin: 07/11/17 17:17 Dose: 1 applic Calcium/Vitamin D (Oyster Shell Calcium/Vitamin D 500 Mg-200 Iu) 1 tab PO BID [facility] Last Admin: 07/11/17 17:18 Dose: 1 tab Clotrimazole (Lotrimin 1% Cream) 1 applic TOP BID [facility] Last Admin: 07/11/17 17:17 Dose: 1 applic Cyproheptadine HCl (Periactin) 4 mg PO 1999 [facility] Donepezil HCl (Aricept) 10 mg PO DAILY [facility] Last Admin: 07/11/17 09:06 Dose: 10 mg Enoxaparin Sodium (Lovenox) 40 mg SC DAILY [facility] PRN Reason: Protocol Last Admin: 07/11/17 09:05 Dose: 40 mg Ferrous Sulfate (Feosol) 325 mg PO BID [facility] Last Admin: 07/11/17 17:17 Dose: 325 mg Glipizide (Glucotrol) 5 mg PO BIDWM [facility] Last Admin: 07/11/17 17:18 Dose: 5 mg Insulin Human Regular (Humulin R) 0 units SC [facility] PRN Reason: Protocol Last Admin: 07/11/17 17:18 Dose: Not Given Lisinopril (Zestril) 40 mg PO DAILY [facility] Last Admin: 07/11/17 09:03 Dose: 40 mg Lorazepam (Ativan) 0.5 mg PO BID PRN PRN Reason: Agitation Meclizine HCl (Antivert) 12.5 mg PO Q8 PRN PRN Reason: Dizziness Metformin HCl (Glucophage) 500 mg PO BIDWM [facility] Last Admin: 07/11/17 17:18 Dose: 500 mg Metoprolol Succinate (Toprol Xl) 100 mg PO DAILY [facility] Last Admin: 07/11/17 09:06 Dose: 100 mg Montelukast Sodium (Singulair) 10 mg PO HS [facility] Last Admin: 07/10/17 21:29 Dose: 10 mg Ondansetron HCl (Zofran Odt) 4 mg PO Q8H PRN PRN Reason: Nausea/Vomiting Last Admin: 07/10/17 17:33 Dose: 4 mg Pantoprazole Sodium (Protonix Ec Tab) 40 mg PO 0630 [facility] Last Admin: 07/11/17 06:35 Dose: 40 mg Paroxetine HCl (Paxil) 30 mg PO DAILY [facility] Last Admin: 07/11/17 09:05 Dose: 30 mg Quetiapine Fumarate (Seroquel) 12.5 mg PO HS [facility] Last Admin: 07/10/17 21:29 Dose: 12.5 mg - Labs Labs: 07/09/17 11:03 07/07/17 04:00 PT 12.9 Seconds (9.8-13.1) 07/06/17 05:40 INR 1.2 (0.9-1.2) 07/06/17 05:40 APTT 31.7 Seconds (25.6-37.1) 07/04/17 10:57
[2017-07-12] MEDS: Pantoprazole 40 mg EC Tab PO SCH (06:02)
[2017-07-12] MEDS: Insulin Regular 100 units/ml SC SCH ×4 (06:30→21:17)
[2017-07-12] MEDS: Bacitracin OINT 15GM TOP SCH ×2 (08:34→16:27)
[2017-07-12] MEDS: Calcium-Vit D 500 mg-200 Units Tab UD PO SCH ×2 (08:34→16:27)
[2017-07-12] MEDS: Enoxaparin 40 mg Syringe SC SCH (08:35)
[2017-07-12] MEDS: Metoprolol Succinate 100 mg XL Tab PO SCH (08:36)
[2017-07-12 08:45] LABS: HEMOGLOBIN 9.3 g/dL (12.0-16.0); MEAN CELL VOLUME 90.4 fl (81.0-99.0); MEAN CORPUSCULAR HEMOGLOBIN 28.9 pg (27.0-31.0); MEAN CORPUSCULAR HGB CONC 31.9 g/dL (33.0-37.0); RBC 3.21 Mil/uL (3.80-5.20); RED CELL DISTRIBUTION WIDTH 15.6 % (11.5-14.5); WHITE BLOOD COUNT 6.5 K/uL (4.8-10.8)
[2017-07-12 08:54] LABS: BLOOD UREA NITROGEN 19 mg/dl (7-17); CALCIUM 9.8 mg/dL (8.4-10.2); GFR AFRICAN-AMERICAN > 60; GFR NON-AFRICAN AMERICAN 53
[2017-07-13] MEDS: Pantoprazole 40 mg EC Tab PO SCH (06:09)
[2017-07-13] MEDS: Insulin Regular 100 units/ml SC SCH ×4 (06:40→21:19)
--- NOTE | 2017-07-13 07:25 | CP.PCM.PN ---
Subjective - Date & Time of Evaluation Date of Evaluation: 07/11/17 Time of Evaluation: 15:00 - Subjective Subjective: Patient remains stable still with elavated FBS On metformin and glipizide Has no chest pain or SOB No leg edema Has no fever. Doing well with PT. Objective - Vital Signs/Intake and Output Vital Signs (last 24 hours): Temp Pulse Resp BP Pulse Ox 96.9 F L 79 20 137/86 99 07/12/17 20:15 07/12/17 20:15 07/12/17 20:15 07/12/17 20:15 07/12/17 20:15 - Medications Medications: Current Medications Acetaminophen (Tylenol 325mg Tab) 650 mg PO Q6 PRN PRN Reason: Pain 4-10 Last Admin: 07/13/17 01:27 Dose: 650 mg Aspirin (Ecotrin) 81 mg PO DAILY [facility] Last Admin: 07/12/17 08:37 Dose: 81 mg Atorvastatin Calcium (Lipitor) 20 mg PO HS [facility] Last Admin: 07/12/17 21:16 Dose: 20 mg Calcium/Vitamin D (Oyster Shell Calcium/Vitamin D 500 Mg-200 Iu) 1 tab PO BID [facility] Last Admin: 07/12/17 16:27 Dose: 1 tab Cyproheptadine HCl (Periactin) 4 mg PO 2000 [facility] Last Admin: 07/12/17 20:42 Dose: 4 mg Donepezil HCl (Aricept) 10 mg PO DAILY [facility] Last Admin: 07/12/17 08:36 Dose: 10 mg Enoxaparin Sodium (Lovenox) 40 mg SC DAILY [facility] PRN Reason: Protocol Last Admin: 07/12/17 08:35 Dose: 40 mg Ferrous Sulfate (Feosol) 325 mg PO BID [facility] Last Admin: 07/12/17 16:28 Dose: 325 mg Glipizide (Glucotrol) 5 mg PO BIDWM [facility] Last Admin: 07/12/17 16:28 Dose: 5 mg Insulin Human Regular (Humulin R) 0 units SC [facility] PRN Reason: Protocol Last Admin: 07/13/17 06:40 Dose: 1 unit Lisinopril (Zestril) 40 mg PO DAILY [facility] Last Admin: 07/12/17 08:35 Dose: 40 mg Lorazepam (Ativan) 0.5 mg PO BID PRN PRN Reason: Agitation Meclizine HCl (Antivert) 12.5 mg PO Q8 PRN PRN Reason: Dizziness Metformin HCl (Glucophage) 500 mg PO BIDWM [facility] Last Admin: 07/12/17 16:28 Dose: 500 mg Metoprolol Succinate (Toprol Xl) 100 mg PO DAILY [facility] Last Admin: 07/12/17 08:36 Dose: 100 mg Montelukast Sodium (Singulair) 10 mg PO HS [facility] Last Admin: 07/12/17 21:17 Dose: 10 mg Ondansetron HCl (Zofran Odt) 4 mg PO Q8H PRN PRN Reason: Nausea/Vomiting Last Admin: 07/10/17 17:33 Dose: 4 mg Pantoprazole Sodium (Protonix Ec Tab) 40 mg PO 0630 [facility] Last Admin: 07/13/17 06:09 Dose: 40 mg Paroxetine HCl (Paxil) 30 mg PO DAILY [facility] Last Admin: 07/12/17 08:36 Dose: 30 mg Quetiapine Fumarate (Seroquel) 12.5 mg PO [facility] Last Admin: 07/12/17 21:16 Dose: 12.5 mg - Labs Labs: 07/12/17 08:25 07/12/17 08:25 PT 12.9 Seconds (9.8-13.1) 07/06/17 05:40 INR 1.2 (0.9-1.2) 07/06/17 05:40 APTT 31.7 Seconds (25.6-37.1) 07/04/17 10:57 - Head Exam Head Exam: NORMAL INSPECTION - Eye Exam Eye Exam: Normal appearance - ENT Exam ENT Exam: Mucous Membranes Moist - Respiratory Exam Respiratory Exam: Clear to Ausculation Bilateral - Cardiovascular Exam Cardiovascular Exam: REGULAR RHYTHM - GI/Abdominal Exam GI & Abdominal Exam: Normal Bowel Sounds - Neurological Exam Neurological Exam: CN II-XII Intact, Oriented x3 Assessment and Plan (1) S/P TKR (total knee replacement) Status: Acute (2) Gait abnormality Status: Acute (3) Diabetes mellitus type 2 in nonobese Status: Acute (4) Hypertension Status: Acute (5) Hyperlipidemia Status: Acute - Assessment and Plan (Free Text) Plan: cont meds adjust po hypoglycemic cont tx cont PT
--- NOTE | 2017-07-13 07:29 | CP.PCM.PN ---
Subjective - Date & Time of Evaluation Date of Evaluation: 07/12/17 Time of Evaluation: 15:00 - Subjective Subjective: Patient remains stable No episode of hypoglycemia Has no chest pain or SOB Doing well with PT Minimal pain on op site Hgb now at 9.3 Objective - Vital Signs/Intake and Output Vital Signs (last 24 hours): Temp Pulse Resp BP Pulse Ox 96.9 F L 79 20 137/86 99 07/12/17 20:15 07/12/17 20:15 07/12/17 20:15 07/12/17 20:15 07/12/17 20:15 - Medications Medications: Current Medications Acetaminophen (Tylenol 325mg Tab) 650 mg PO Q6 PRN PRN Reason: Pain 4-10 Last Admin: 07/13/17 01:27 Dose: 650 mg Aspirin (Ecotrin) 81 mg PO DAILY [facility] Last Admin: 07/12/17 08:37 Dose: 81 mg Atorvastatin Calcium (Lipitor) 20 mg PO HS [facility] Last Admin: 07/12/17 21:16 Dose: 20 mg Calcium/Vitamin D (Oyster Shell Calcium/Vitamin D 500 Mg-200 Iu) 1 tab PO BID [facility] Last Admin: 07/12/17 16:27 Dose: 1 tab Cyproheptadine HCl (Periactin) 4 mg PO 2000 [facility] Last Admin: 07/12/17 20:42 Dose: 4 mg Donepezil HCl (Aricept) 10 mg PO DAILY [facility] Last Admin: 07/12/17 08:36 Dose: 10 mg Enoxaparin Sodium (Lovenox) 40 mg SC DAILY [facility] PRN Reason: Protocol Last Admin: 07/12/17 08:35 Dose: 40 mg Ferrous Sulfate (Feosol) 325 mg PO BID [facility] Last Admin: 07/12/17 16:28 Dose: 325 mg Glipizide (Glucotrol) 5 mg PO BIDWM [facility] Last Admin: 07/12/17 16:28 Dose: 5 mg Insulin Human Regular (Humulin R) 0 units SC [facility] PRN Reason: Protocol Last Admin: 07/13/17 06:40 Dose: 1 unit Lisinopril (Zestril) 40 mg PO DAILY [facility] Last Admin: 07/12/17 08:35 Dose: 40 mg Lorazepam (Ativan) 0.5 mg PO BID PRN PRN Reason: Agitation Meclizine HCl (Antivert) 12.5 mg PO Q8 PRN PRN Reason: Dizziness Metformin HCl (Glucophage) 500 mg PO BIDWM [facility] Last Admin: 07/12/17 16:28 Dose: 500 mg Metoprolol Succinate (Toprol Xl) 100 mg PO DAILY [facility] Last Admin: 07/12/17 08:36 Dose: 100 mg Montelukast Sodium (Singulair) 10 mg PO HS [facility] Last Admin: 07/12/17 21:17 Dose: 10 mg Ondansetron HCl (Zofran Odt) 4 mg PO Q8H PRN PRN Reason: Nausea/Vomiting Last Admin: 07/10/17 17:33 Dose: 4 mg Pantoprazole Sodium (Protonix Ec Tab) 40 mg PO 0630 [facility] Last Admin: 07/13/17 06:09 Dose: 40 mg Paroxetine HCl (Paxil) 30 mg PO DAILY [facility] Last Admin: 07/12/17 08:36 Dose: 30 mg Quetiapine Fumarate (Seroquel) 12.5 mg PO [facility] Last Admin: 07/12/17 21:16 Dose: 12.5 mg - Labs Labs: 07/12/17 08:25 07/12/17 08:25 PT 12.9 Seconds (9.8-13.1) 07/06/17 05:40 INR 1.2 (0.9-1.2) 07/06/17 05:40 APTT 31.7 Seconds (25.6-37.1) 07/04/17 10:57 - Head Exam Head Exam: NORMAL INSPECTION - Eye Exam Eye Exam: Normal appearance - ENT Exam ENT Exam: Mucous Membranes Moist - Respiratory Exam Respiratory Exam: Clear to Ausculation Bilateral - Cardiovascular Exam Cardiovascular Exam: REGULAR RHYTHM - GI/Abdominal Exam GI & Abdominal Exam: Normal Bowel Sounds - Neurological Exam Neurological Exam: Awake, Oriented x3 - Psychiatric Exam Psychiatric exam: Normal Mood Assessment and Plan (1) S/P TKR (total knee replacement) Status: Acute (2) Gait abnormality Status: Acute (3) Diabetes mellitus type 2 in nonobese Status: Acute (4) Hypertension Status: Acute (5) Hyperlipidemia Status: Acute - Assessment and Plan (Free Text) Plan: Cont meds Cont tx adjust po meds may benefir from januvia decrease glipizide
[2017-07-13] MEDS: Enoxaparin 40 mg Syringe SC SCH (08:27)
[2017-07-13] MEDS: Calcium-Vit D 500 mg-200 Units Tab UD PO SCH ×2 (08:28→17:47)
[2017-07-13] MEDS: Metoprolol Succinate 100 mg XL Tab PO SCH (08:28)
[2017-07-13 10:46] LABS: RENAL EPITHELIAL 1 /hpf (0-3); SQUAMOUS EPITHIAL < 1 /hpf (0-5); URINE BILIRUBIN NEGATIVE (NEGATIVE); URINE BLOOD NEGATIVE (NEGATIVE); URINE CLARITY SLIGHTY-CLOUDY (Clear); URINE COLOR YELLOW (YELLOW); URINE GLUCOSE (UA) NEG (Normal); URINE LEUKOCYTE ESTERASE MOD Leu/uL (Negative); URINE PROTEIN 30 mg/dL (NEGATIVE); URINE UROBILINOGEN 0.2-1.0 mg/dL (0.2-1.0)
--- NOTE | 2017-07-14 00:17 | CP.PCM.PN ---
Subjective - Date & Time of Evaluation Date of Evaluation: 07/13/17 Time of Evaluation: 18:00 - Subjective Subjective: Patient remains stable Has no chest pain or SOB No leg swelling Noted some visual hallucinations early in the day. Objective - Vital Signs/Intake and Output Vital Signs (last 24 hours): Temp Pulse Resp BP Pulse Ox 97.9 F 80 20 131/61 99 07/13/17 19:55 07/13/17 19:55 07/13/17 19:55 07/13/17 19:55 07/13/17 19:55 - Medications Medications: Current Medications Acetaminophen (Tylenol 325mg Tab) 650 mg PO Q6 PRN PRN Reason: Pain 4-10 Last Admin: 07/13/17 15:12 Dose: 650 mg Aspirin (Ecotrin) 81 mg PO DAILY [facility] Last Admin: 07/13/17 08:26 Dose: 81 mg Atorvastatin Calcium (Lipitor) 20 mg PO HS [facility] Last Admin: 07/13/17 21:18 Dose: 20 mg Calcium/Vitamin D (Oyster Shell Calcium/Vitamin D 500 Mg-200 Iu) 1 tab PO BID [facility] Last Admin: 07/13/17 17:47 Dose: 1 tab Cyproheptadine HCl (Periactin) 4 mg PO 2000 [facility] Last Admin: 07/13/17 20:37 Dose: 4 mg Donepezil HCl (Aricept) 10 mg PO DAILY [facility] Last Admin: 07/13/17 08:26 Dose: 10 mg Enoxaparin Sodium (Lovenox) 40 mg SC DAILY [facility] PRN Reason: Protocol Last Admin: 07/13/17 08:27 Dose: 40 mg Ferrous Sulfate (Feosol) 325 mg PO BID [facility] Last Admin: 07/13/17 17:32 Dose: 325 mg Insulin Human Regular (Humulin R) 0 units SC [facility] PRN Reason: Protocol Last Admin: 07/13/17 21:19 Dose: Not Given Lisinopril (Zestril) 40 mg PO DAILY [facility] Last Admin: 07/13/17 08:29 Dose: 40 mg Lorazepam (Ativan) 0.5 mg PO BID PRN PRN Reason: Agitation Metformin HCl (Glucophage) 500 mg PO BIDWM [facility] Last Admin: 07/13/17 17:32 Dose: 500 mg Metoprolol Succinate (Toprol Xl) 100 mg PO DAILY [facility] Last Admin: 07/13/17 08:28 Dose: 100 mg Pantoprazole Sodium (Protonix Ec Tab) 40 mg PO 0630 [facility] Last Admin: 07/13/17 06:09 Dose: 40 mg Paroxetine HCl (Paxil) 30 mg PO DAILY [facility] Last Admin: 07/13/17 08:28 Dose: 30 mg Quetiapine Fumarate (Seroquel) 12.5 mg PO HS [facility] Last Admin: 07/13/17 21:18 Dose: 12.5 mg Sitagliptin Phosphate (Januvia) 100 mg PO DAILY [facility] Last Admin: 07/13/17 09:44 Dose: 100 mg - Labs Labs: 07/12/17 08:25 07/12/17 08:25 PT 12.9 Seconds (9.8-13.1) 07/06/17 05:40 INR 1.2 (0.9-1.2) 07/06/17 05:40 APTT 31.7 Seconds (25.6-37.1) 07/04/17 10:57 - Head Exam Head Exam: NORMAL INSPECTION - Eye Exam Eye Exam: Normal appearance - ENT Exam ENT Exam: Mucous Membranes Moist - Respiratory Exam Respiratory Exam: Clear to Ausculation Bilateral - GI/Abdominal Exam GI & Abdominal Exam: Normal Bowel Sounds - Extremities Exam Additional comments: wound clean and no surrounding redness. Assessment and Plan (1) S/P TKR (total knee replacement) Status: Acute (2) Gait abnormality Status: Acute (3) Diabetes mellitus type 2 in nonobese Status: Acute (4) Hypertension Status: Acute (5) Hyperlipidemia Status: Acute
[2017-07-14] MEDS: Pantoprazole 40 mg EC Tab PO SCH (05:45)
[2017-07-14] MEDS: Insulin Regular 100 units/ml SC SCH ×4 (06:46→21:30)
[2017-07-14] MEDS: Metoprolol Succinate 100 mg XL Tab PO SCH (08:28)
[2017-07-14] MEDS: Calcium-Vit D 500 mg-200 Units Tab UD PO SCH ×2 (08:29→16:39)
[2017-07-14] MEDS: Enoxaparin 40 mg Syringe SC SCH (08:30)
--- NOTE | 2017-07-14 10:42 | CP.PCM.PN ---
Subjective - Date & Time of Evaluation Date of Evaluation: 07/14/17 Time of Evaluation: 07:25 - Subjective Subjective: Patient seen and examined bedside with Dr Urena. Patient had an episode of visual hallucination yesterday and nightmares last night. Noted urine cx gram neg rods. Started empiric macrobid 100 bid. Denies chest pain, SOB, fever, abd pain Psyc consult Objective - Vital Signs/Intake and Output Vital Signs (last 24 hours): Temp Pulse Resp BP Pulse Ox 98.1 F 96 H 20 153/98 H 96 07/14/17 07:54 07/14/17 08:28 07/14/17 07:54 07/14/17 08:29 07/14/17 07:54 - Medications Medications: Current Medications Acetaminophen (Tylenol 325mg Tab) 650 mg PO Q6 PRN PRN Reason: Pain 4-10 Last Admin: 07/13/17 15:12 Dose: 650 mg Aspirin (Ecotrin) 81 mg PO DAILY [facility] Last Admin: 07/14/17 08:28 Dose: 81 mg Atorvastatin Calcium (Lipitor) 20 mg PO HS [facility] Last Admin: 07/13/17 21:18 Dose: 20 mg Calcium/Vitamin D (Oyster Shell Calcium/Vitamin D 500 Mg-200 Iu) 1 tab PO BID [facility] Last Admin: 07/14/17 08:29 Dose: 1 tab Donepezil HCl (Aricept) 10 mg PO DAILY [facility] Last Admin: 07/14/17 08:37 Dose: 10 mg Enoxaparin Sodium (Lovenox) 40 mg SC DAILY [facility] PRN Reason: Protocol Last Admin: 07/14/17 08:30 Dose: 40 mg Ferrous Sulfate (Feosol) 325 mg PO BID [facility] Last Admin: 07/14/17 08:28 Dose: 325 mg Insulin Human Regular (Humulin R) 0 units SC ACHS [facility] PRN Reason: Protocol Last Admin: 07/14/17 06:46 Dose: 1 unit Lisinopril (Zestril) 40 mg PO DAILY [facility] Last Admin: 07/14/17 08:29 Dose: 40 mg Lorazepam (Ativan) 0.5 mg PO BID PRN PRN Reason: Agitation Metformin HCl (Glucophage) 500 mg PO BIDWM [facility] Last Admin: 07/14/17 08:27 Dose: 500 mg Metoprolol Succinate (Toprol Xl) 100 mg PO DAILY [facility] Last Admin: 07/14/17 08:28 Dose: 100 mg Pantoprazole Sodium (Protonix Ec Tab) 40 mg PO 0630 [facility] Last Admin: 07/14/17 05:45 Dose: 40 mg Paroxetine HCl (Paxil) 30 mg PO DAILY [facility] Last Admin: 07/14/17 08:27 Dose: 30 mg Quetiapine Fumarate (Seroquel) 12.5 mg PO HS [facility] Last Admin: 07/13/17 21:18 Dose: 12.5 mg Sitagliptin Phosphate (Januvia) 100 mg PO DAILY [facility] Last Admin: 07/14/17 08:29 Dose: 100 mg - Labs Labs: 07/12/17 08:25 07/12/17 08:25 PT 12.9 Seconds (9.8-13.1) 07/06/17 05:40 INR 1.2 (0.9-1.2) 07/06/17 05:40 APTT 31.7 Seconds (25.6-37.1) 07/04/17 10:57 - Constitutional Appears: Non-toxic, No Acute Distress - Head Exam Head Exam: ATRAUMATIC, NORMOCEPHALIC - Eye Exam Eye Exam: Normal appearance - ENT Exam ENT Exam: Mucous Membranes Moist - Respiratory Exam Respiratory Exam: Clear to Ausculation Bilateral. absent: Rhonchi, Wheezes - Cardiovascular Exam Cardiovascular Exam: REGULAR RHYTHM, +S1, +S2 - GI/Abdominal Exam GI & Abdominal Exam: Soft, Normal Bowel Sounds. absent: Tenderness - Extremities Exam Extremities Exam: Normal Inspection. absent: Pedal Edema Additional comments: right knee anterior aspect hematoma.no signs of infection Left knee s/p TKR immobilizer in place - Neurological Exam Neurological Exam: Alert, Awake, Oriented x3 - Psychiatric Exam Psychiatric exam: Anxious Assessment and Plan - Assessment and Plan (Free Text) Plan: Assessment/Plan 1) s/p L TKR -c/w PT/OT - Pain management. 2) AMS -new episode of hallucination resolved -may be secondary to delirium from med side effects vs UTI -CT head normal -Neuro consult appreciated - -Psyq consult appreciated: Ativan 0.5 mg PO BID PRN agitation, Paxil 30 mg QHS Risperdal 0.5 3) Anemia -2/2 iron deficiency - mild low iron and iron sat -TIBC normal, LDH normal -ferrous sulfate 1 tab BID 4) Type 2 DM - Glipizide/Metformin 5) Hypercholesterolemia - Lipitor 20 mg po HS 6) Essential HTN - Lisinopril 40 mg po daily 7) Anxiety - Ativan PRN 8) GI prophylaxis - Protonix 40 mg po daily' 9) UTI -urine cx gram neg rods -macrobid empiric -f/u urine cx sensitivity 10) DVT prophylaxis - Lovenox 40 mg sc
--- NOTE | 2017-07-14 11:19 | CP.PCM.CON ---
History of Present Illness - History of Present Illness History of Present Illness: Psychiatry consult follow-up note HPI: 82 yo female, currently being treated on acute Rehab s/p TKR, found to have UTI, is more lucid than on initial psychiatric evaluation, continues to report depressed mood and is noted to be intermittently paranoid by staff and patient's family. 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 She does report feeling depressed and having nightmares. No AH/VH/SI/HI. No acute anxiety. MSE: A + O x 3, calm, cooperative, mood-depressed, affect- full range, speech normal, good eye contact, thought process- loose at times but coherent, thought content- no delusions/acute paranoia, no AH/VH/SI/HI; limited I/J due to chronic dementia Impression: 82 yo female w/ Dementia and Major Depressive Disorder, now w/ intermittent periods of paranoia, could be worsened by acute UTI. -Can start Risperdal 0.5 mg PO HS -Continue Ativan 0.5 mg PO PRN anxiety/agitation -Continue Paxil 30 mg PO HS -No acute inpatient psychiatric admission indicated at this time Past Patient History - Infectious Disease Hx of Infectious Diseases: None - Past Medical History & Family History Past Medical History?: Yes - Past Social History Smoking Status: Never Smoked - CARDIAC Hx Hypertension: Yes - PULMONARY Hx Respiratory Disorders: Yes Other/Comment: - "Breathing problems" (Denies any hx: asthma,. COPD, or pneumonia). Patient prescribed Singulair - NEUROLOGICAL Hx Dementia: Yes - HEENT Hx Cataracts: Yes (Hx. of bilateral cataract surgeries) - RENAL Hx Chronic Kidney Disease: Yes (JED on CKD) - ENDOCRINE/METABOLIC Hx Diabetes Mellitus Type 2: Yes - HEMATOLOGICAL/ONCOLOGICAL Hx AIDS: No Hx Human Immunodeficiency Virus (HIV): No - MUSCULOSKELETAL/RHEUMATOLOGICAL Hx Falls: Yes (Per dgt, > 5 times. Per patient, > 10 times in the last 3 months ) - PSYCHIATRIC Hx Anxiety: Yes Hx Substance Use: No - SURGICAL HISTORY Hx Surgeries: Yes Hx Orthopedic Surgery: Yes Other/Comment: -- Left total knee replacement 07/01/2017. -- Right kidney removal. -- Right ovarian and tubal removal. -- Right shoulder surgery - ANESTHESIA Hx Anesthesia: Yes Hx Anesthesia Reactions: No Hx Malignant Hyperthermia: No Has any member of the family had a problem w/ anesthesia?: No Meds Allergies/Adverse Reactions: Allergies Allergy/AdvReac Type Severity Reaction Status Date / Time Penicillins Allergy SHORTNESS Verified 07/04/17 00:22 OF BREATH - Medications Medications: Current Medications Acetaminophen (Tylenol 325mg Tab) 650 mg PO Q6 PRN PRN Reason: Pain 4-10 Last Admin: 07/13/17 15:12 Dose: 650 mg Aspirin (Ecotrin) 81 mg PO DAILY [facility] Last Admin: 07/14/17 08:28 Dose: 81 mg Atorvastatin Calcium (Lipitor) 20 mg PO HS [facility] Last Admin: 07/13/17 21:18 Dose: 20 mg Calcium/Vitamin D (Oyster Shell Calcium/Vitamin D 500 Mg-200 Iu) 1 tab PO BID [facility] Last Admin: 07/14/17 08:29 Dose: 1 tab Donepezil HCl (Aricept) 10 mg PO DAILY [facility] Last Admin: 07/14/17 08:37 Dose: 10 mg Enoxaparin Sodium (Lovenox) 40 mg SC DAILY [facility] PRN Reason: Protocol Last Admin: 07/14/17 08:30 Dose: 40 mg Ferrous Sulfate (Feosol) 325 mg PO BID [facility] Last Admin: 07/14/17 08:28 Dose: 325 mg Insulin Human Regular (Humulin R) 0 units SC ACHS [facility] PRN Reason: Protocol Last Admin: 07/14/17 06:46 Dose: 1 unit Lisinopril (Zestril) 40 mg PO DAILY [facility] Last Admin: 07/14/17 08:29 Dose: 40 mg Lorazepam (Ativan) 0.5 mg PO BID PRN PRN Reason: Agitation Metformin HCl (Glucophage) 500 mg PO BIDWM [facility] Last Admin: 07/14/17 08:27 Dose: 500 mg Metoprolol Succinate (Toprol Xl) 100 mg PO DAILY [facility] Last Admin: 07/14/17 08:28 Dose: 100 mg Nitrofurantoin Macrocrystals (Macrobid) 100 mg PO Q12 [facility] PRN Reason: Protocol Pantoprazole Sodium (Protonix Ec Tab) 40 mg PO 0630 [facility] Last Admin: 07/14/17 05:45 Dose: 40 mg Paroxetine HCl (Paxil) 30 mg PO DAILY [facility] Last Admin: 07/14/17 08:27 Dose: 30 mg Risperidone (Risperdal M-Tab) 0.5 mg PO DAILY@1700 [facility] Sitagliptin Phosphate (Januvia) 100 mg PO DAILY [facility] Last Admin: 07/14/17 08:29 Dose: 100 mg Results - Vital Signs Recent Vital Signs: Last Vital Signs Temp 98.1 F 07/14/17 07:54 Pulse 96 H 07/14/17 08:28 Resp 20 07/14/17 07:54 BP 153/98 H 07/14/17 08:29 Pulse Ox 96 07/14/17 07:54 - Labs Result Diagrams: 07/12/17 08:25 07/12/17 08:25 Labs: Laboratory Results - last 24 hr 07/13/17 07/13/17 07/14/17 16:05 20:42 05:07 POC Glucose (mg/dL) 120 H 153 H 165 H
[2017-07-14 12:16] LABS: BASO # 0.1 K/uL (0.0-0.2); BASO % 0.6 % (0.0-2.0); EOS # 0.1 K/uL (0.0-0.7); EOS % 1.3 % (0.0-4.0); HEMOGLOBIN 9.4 g/dL (12.0-16.0); LYMPH # 0.7 K/uL (1.0-4.3); MEAN CELL VOLUME 91.3 fl (81.0-99.0); MEAN CORPUSCULAR HEMOGLOBIN 29.6 pg (27.0-31.0); MEAN CORPUSCULAR HGB CONC 32.5 g/dL (33.0-37.0); MEAN PLATELET VOLUME 8.9 fl (7.2-11.7); MONO # 0.4 K/uL (0.0-0.8); MONO % 4.9 % (0.0-10.0); NEUT # 7.4 K/uL (1.8-7.0); NEUT % 85.2 % (50.0-75.0); NRBC % 0.1 % (0.0-0.0); PLATELET COUNT 433 K/uL (130-400); RBC 3.19 Mil/uL (3.80-5.20); RED CELL DISTRIBUTION WIDTH 16.1 % (11.5-14.5); WHITE BLOOD COUNT 8.7 K/uL (4.8-10.8)
[2017-07-14 12:33] LABS: ALB/GLOB RATIO 1.2 (1.0-2.1); ALBUMIN 3.6 g/dL (3.5-5.0); ALT/SGPT 35 U/L (9-52); AST/SGOT 31 U/L (14-36); BLOOD UREA NITROGEN 15 mg/dl (7-17); CALCIUM 9.9 mg/dL (8.4-10.2); GFR AFRICAN-AMERICAN > 60; GFR NON-AFRICAN AMERICAN > 60
[2017-07-14 14:30] LABS: EOSINOPHIL 2 % (0-7); LYMPHOCYTE 9 % (20-50); MONOCYTE 8 % (0-10); NEUTROPHIL 81 % (42-75); TOTAL CELLS COUNTED 100
[2017-07-14 14:31] LABS: ANISOCYTOSIS SLIGHT; HYPOCHROMIC SLIGHT; PLATELET ESTIMATE SLIGHTLY INCREASED (NORMAL)
[2017-07-14] MEDS ORDERED: RISPERIDONE 0.25 MG ODT PO SCH (17:00)
[2017-07-14] MEDS ORDERED: Risperidone M tab 0.5MG PO SCH ×2 (17:00→22:00)
[2017-07-15] MEDS: Pantoprazole 40 mg EC Tab PO SCH (05:54)
[2017-07-15] MEDS: Insulin Regular 100 units/ml SC SCH ×4 (06:53→21:00)
[2017-07-15] MEDS: Enoxaparin 40 mg Syringe SC SCH (08:05)
[2017-07-15] MEDS: Metoprolol Succinate 100 mg XL Tab PO SCH (08:05)
[2017-07-15] MEDS: Calcium-Vit D 500 mg-200 Units Tab UD PO SCH ×2 (08:06→17:25)
--- NOTE | 2017-07-15 09:22 | CP.PCM.PN ---
Subjective - Date & Time of Evaluation Date of Evaluation: 07/15/17 Time of Evaluation: 07:10 - Subjective Subjective: Patient seen and examined bedside with Dr Urena. Patient had other episode of visual hallucination yesterday. Urine cx Proteus less than 100 000 resistant to macrobic, Cipro, Bactrim. Will repeat urine cx. Patient asymptomatic. Denies chest pain, SOB, fever, abd pain Psyc consult appreciated Objective - Vital Signs/Intake and Output Vital Signs (last 24 hours): Temp Pulse Resp BP Pulse Ox 96.0 F L 91 H 20 122/67 93 L 07/15/17 08:39 07/15/17 08:39 07/15/17 08:39 07/15/17 08:39 07/15/17 07:33 - Medications Medications: Current Medications Acetaminophen (Tylenol 325mg Tab) 650 mg PO Q6 PRN PRN Reason: Pain 4-10 Last Admin: 07/15/17 08:04 Dose: 650 mg Aspirin (Ecotrin) 81 mg PO DAILY [facility] Last Admin: 07/15/17 08:06 Dose: 81 mg Atorvastatin Calcium (Lipitor) 20 mg PO HS [facility] Last Admin: 07/14/17 21:21 Dose: 20 mg Calcium/Vitamin D (Oyster Shell Calcium/Vitamin D 500 Mg-200 Iu) 1 tab PO BID [facility] Last Admin: 07/15/17 08:06 Dose: 1 tab Donepezil HCl (Aricept) 10 mg PO DAILY [facility] Last Admin: 07/15/17 08:05 Dose: 10 mg Enoxaparin Sodium (Lovenox) 40 mg SC DAILY [facility] PRN Reason: Protocol Last Admin: 07/15/17 08:05 Dose: 40 mg Ferrous Sulfate (Feosol) 325 mg PO BID [facility] Last Admin: 07/15/17 08:06 Dose: 325 mg Insulin Human Regular (Humulin R) 0 units SC ACHS [facility] PRN Reason: Protocol Last Admin: 07/15/17 06:53 Dose: 1 unit Lisinopril (Zestril) 40 mg PO DAILY [facility] Last Admin: 07/15/17 08:06 Dose: 40 mg Lorazepam (Ativan) 0.5 mg PO Q8 PRN PRN Reason: Agitation Last Admin: 07/15/17 08:05 Dose: 0.5 mg Metformin HCl (Glucophage) 500 mg PO BIDWM [facility] Last Admin: 07/15/17 08:07 Dose: 500 mg Metoprolol Succinate (Toprol Xl) 100 mg PO DAILY [facility] Last Admin: 07/15/17 08:05 Dose: 100 mg Nitrofurantoin Macrocrystals (Macrobid) 100 mg PO Q12 [facility] PRN Reason: Protocol Last Admin: 07/15/17 08:06 Dose: 100 mg Pantoprazole Sodium (Protonix Ec Tab) 40 mg PO 0630 [facility] Last Admin: 07/15/17 05:54 Dose: 40 mg Paroxetine HCl (Paxil) 30 mg PO HS [facility] Risperidone (Risperdal M-Tab) 0.5 mg PO HS [facility] Last Admin: 07/14/17 21:21 Dose: 0.5 mg Sitagliptin Phosphate (Januvia) 100 mg PO DAILY [facility] Last Admin: 07/15/17 08:07 Dose: 100 mg - Labs Labs: 07/14/17 12:01 07/14/17 12:01 PT 12.9 Seconds (9.8-13.1) 07/06/17 05:40 INR 1.2 (0.9-1.2) 07/06/17 05:40 APTT 31.7 Seconds (25.6-37.1) 07/04/17 10:57 - Constitutional Appears: Non-toxic, No Acute Distress - Head Exam Head Exam: NORMOCEPHALIC - Eye Exam Eye Exam: Normal appearance - ENT Exam ENT Exam: Mucous Membranes Moist - Neck Exam Neck Exam: Normal Inspection - Respiratory Exam Respiratory Exam: Clear to Ausculation Bilateral. absent: Rhonchi, Wheezes - Cardiovascular Exam Cardiovascular Exam: REGULAR RHYTHM, +S1, +S2 - GI/Abdominal Exam GI & Abdominal Exam: Soft, Normal Bowel Sounds. absent: Tenderness - Extremities Exam Extremities Exam: absent: Pedal Edema - Back Exam Additional comments: right knee anterior aspect hematoma.no signs of infection Left knee s/p TKR, wound, C/d/I - Neurological Exam Neurological Exam: Alert, Awake, Oriented x3 - Psychiatric Exam Psychiatric exam: Normal Affect, Normal Mood Assessment and Plan - Assessment and Plan (Free Text) Plan: Assessment/Plan 1) s/p L TKR -c/w PT/OT - Pain management. 2) AMS -new episode of hallucination resolved -may be secondary to delirium from med side effects vs UTI -CT head normal -Neuro consult appreciated - -Psyq consult appreciated: Ativan 0.5 mg PO BID PRN agitation, Paxil 30 mg QHS Risperdal 0.5 3) Anemia -2/2 iron deficiency - mild low iron and iron sat -TIBC normal, LDH normal -ferrous sulfate 1 tab BID 4) Type 2 DM - Glipizide/Metformin 5) Hypercholesterolemia - Lipitor 20 mg po HS 6) Essential HTN - Lisinopril 40 mg po daily 7) Anxiety - Ativan PRN 8) GI prophylaxis - Protonix 40 mg po daily' 9) UTI -. Urine cx Proteus less than 100 000 resistant to macrobic, Cipro, Bactrim. Will repeat urine cx. 10) DVT prophylaxis - Lovenox 40 mg sc
[2017-07-15] MEDS ORDERED: Risperidone M tab 0.5MG PO PRN (09:45)
--- NOTE | 2017-07-15 11:37 | CP.PCM.CON ---
History of Present Illness - History of Present Illness History of Present Illness: Psychiatry consult follow-up note HPI: 82 yo female, currently being treated on acute Rehab s/p TKR, found to have UTI, w/ h/o chronic depression now w/ intermittent paranoia and as per staff and family was paranoid yesterday and having possible visual hallucinations and/or auditory hallucinations as she was observed talking to herself yesterday. Patient denies acute AH/VH/paranoia and is currently calm w / rewriter. MSE: A + O x 3, calm, cooperative, mood-depressed, affect- full range, speech normal, good eye contact, thought process- loose at times but coherent, thought content- no delusions/acute paranoia, no AH/VH/SI/HI; limited I/J due to chronic dementia Impression: 82 yo female w/ Dementia and Major Depressive Disorder, now w/ intermittent periods of paranoia and possible intermittent VH vs AH, could be worsened by acute UTI and possible late day confusion ("sun-downing."). Patient is not acutely psychotic or paranoid at the time of this evaluation. -Continue Risperdal 0.5 mg PO Daily@1700; can give PRN Risperdal if patient acutely agitated or psychotic -Continue Ativan 0.5 mg PO PRN anxiety/agitation -Continue Paxil 30 mg PO HS Past Patient History - Infectious Disease Hx of Infectious Diseases: None - Past Medical History & Family History Past Medical History?: Yes - Past Social History Smoking Status: Never Smoked - CARDIAC Hx Hypertension: Yes - PULMONARY Hx Respiratory Disorders: Yes Other/Comment: - "Breathing problems" (Denies any hx: asthma,. COPD, or pneumonia). Patient prescribed Singulair - NEUROLOGICAL Hx Dementia: Yes - HEENT Hx Cataracts: Yes (Hx. of bilateral cataract surgeries) - RENAL Hx Chronic Kidney Disease: Yes (JED on CKD) - ENDOCRINE/METABOLIC Hx Diabetes Mellitus Type 2: Yes - HEMATOLOGICAL/ONCOLOGICAL Hx AIDS: No Hx Human Immunodeficiency Virus (HIV): No - MUSCULOSKELETAL/RHEUMATOLOGICAL Hx Falls: Yes (Per dgt, > 5 times. Per patient, > 10 times in the last 3 months ) - PSYCHIATRIC Hx Anxiety: Yes Hx Substance Use: No - SURGICAL HISTORY Hx Surgeries: Yes Hx Orthopedic Surgery: Yes Other/Comment: -- Left total knee replacement 07/01/2017. -- Right kidney removal. -- Right ovarian and tubal removal. -- Right shoulder surgery - ANESTHESIA Hx Anesthesia: Yes Hx Anesthesia Reactions: No Hx Malignant Hyperthermia: No Has any member of the family had a problem w/ anesthesia?: No Meds Allergies/Adverse Reactions: Allergies Allergy/AdvReac Type Severity Reaction Status Date / Time Penicillins Allergy SHORTNESS Verified 07/04/17 00:22 OF BREATH - Medications Medications: Current Medications Acetaminophen (Tylenol 325mg Tab) 650 mg PO Q6 PRN PRN Reason: Pain 4-10 Last Admin: 07/15/17 08:04 Dose: 650 mg Aspirin (Ecotrin) 81 mg PO DAILY [facility] Last Admin: 07/15/17 08:06 Dose: 81 mg Atorvastatin Calcium (Lipitor) 20 mg PO HS [facility] Last Admin: 07/14/17 21:21 Dose: 20 mg Calcium/Vitamin D (Oyster Shell Calcium/Vitamin D 500 Mg-200 Iu) 1 tab PO BID [facility] Last Admin: 07/15/17 08:06 Dose: 1 tab Donepezil HCl (Aricept) 10 mg PO DAILY [facility] Last Admin: 07/15/17 08:05 Dose: 10 mg Enoxaparin Sodium (Lovenox) 40 mg SC DAILY [facility] PRN Reason: Protocol Last Admin: 07/15/17 08:05 Dose: 40 mg Ferrous Sulfate (Feosol) 325 mg PO BID [facility] Last Admin: 07/15/17 08:06 Dose: 325 mg Insulin Human Regular (Humulin R) 0 units SC ACHS [facility] PRN Reason: Protocol Last Admin: 07/15/17 06:53 Dose: 1 unit Lisinopril (Zestril) 40 mg PO DAILY [facility] Last Admin: 07/15/17 08:06 Dose: 40 mg Lorazepam (Ativan) 0.5 mg PO Q8 PRN PRN Reason: Agitation Last Admin: 07/15/17 08:05 Dose: 0.5 mg Metformin HCl (Glucophage) 500 mg PO BIDWM [facility] Last Admin: 07/15/17 08:07 Dose: 500 mg Metoprolol Succinate (Toprol Xl) 100 mg PO DAILY [facility] Last Admin: 07/15/17 08:05 Dose: 100 mg Pantoprazole Sodium (Protonix Ec Tab) 40 mg PO 0630 [facility] Last Admin: 07/15/17 05:54 Dose: 40 mg Paroxetine HCl (Paxil) 30 mg PO HS [facility] Risperidone (Risperdal M-Tab) 0.5 mg PO HS [facility] Last Admin: 07/14/17 21:21 Dose: 0.5 mg Risperidone (Risperdal M-Tab) 0.5 mg PO Q12 [facility] PRN Reason: Agitation/ Acute Psychosis Sitagliptin Phosphate (Januvia) 100 mg PO DAILY [facility] Last Admin: 07/15/17 08:07 Dose: 100 mg Results - Vital Signs Recent Vital Signs: Last Vital Signs Temp 96.0 F L 07/15/17 08:39 Pulse 91 H 07/15/17 08:39 Resp 20 07/15/17 08:39 BP 122/67 07/15/17 08:39 Pulse Ox 93 L 07/15/17 07:33 - Labs Result Diagrams: 07/14/17 12:01 07/14/17 12:01 Labs: Laboratory Results - last 24 hr 07/14/17 07/14/17 07/14/17 11:32 12:01 12:01 WBC 8.7 RBC 3.19 L Hgb 9.4 L Hct 29.1 L MCV 91.3 MCH 29.6 MCHC 32.5 L RDW 16.1 H Plt Count 433 H MPV 8.9 Neut % (Auto) 85.2 H Lymph % (Auto) 8.0 L [place] % (Auto) 4.9 Eos % (Auto) 1.3 Baso % (Auto) 0.6 Neut # (Auto) 7.4 H Lymph # (Auto) 0.7 L [place] # (Auto) 0.4 Eos # (Auto) 0.1 Baso # (Auto) 0.1 Neutrophils % (Manual) 81 H Lymphocytes % (Manual) 9 L Monocytes % (Manual) 8 Eosinophils % (Manual) 2 Platelet Estimate Slightly increased H Hypochromasia (manual) Slight Anisocytosis (manual) Slight Sodium 144 Potassium 3.6 Chloride 102 Carbon Dioxide 25 Anion Gap 21 H BUN 15 Creatinine 0.9 Est GFR ( Amer) > 60 Est GFR (Non-Af Amer) > 60 POC Glucose (mg/dL) 208 H Random Glucose 210 H Calcium 9.9 Total Bilirubin 0.6 AST 31 ALT 35 Alkaline Phosphatase 99 Total Protein 6.6 Albumin 3.6 Globulin 3.0 Albumin/Globulin Ratio 1.2 0507/14/17 07/15/17 15:50 20:56 05:57 WBC RBC Hgb Hct MCV MCH MCHC RDW Plt Count MPV Neut % (Auto) Lymph % (Auto) [place] % (Auto) Eos % (Auto) Baso % (Auto) Neut # (Auto) Lymph # (Auto) [place] # (Auto) Eos # (Auto) Baso # (Auto) Neutrophils % (Manual) Lymphocytes % (Manual) Monocytes % (Manual) Eosinophils % (Manual) Platelet Estimate Hypochromasia (manual) Anisocytosis (manual) Sodium Potassium Chloride Carbon Dioxide Anion Gap BUN Creatinine Est GFR ( Amer) Est GFR (Non-Af Amer) POC Glucose (mg/dL) 163 H 141 H 154 H Random Glucose Calcium Total Bilirubin AST ALT Alkaline Phosphatase Total Protein Albumin Globulin Albumin/Globulin Ratio
--- NOTE | 2017-07-15 12:09 | PSY.TMCNF ---
Nursing - Vital Signs Vital Signs (Last 8 hours): Vital Signs 07/15/17 07/15/17 07/15/17 07:33 08:05 08:06 Temperature 96.0 F L Pulse Rate 91 H 91 H Respiratory 20 Rate Blood Pressure 122/67 122/67 122/67 O2 Sat by Pulse 93 L Oximetry 07/15/17 08:39 Temperature 96.0 F L Pulse Rate 91 H Respiratory 20 Rate Blood Pressure 122/67 O2 Sat by Pulse Oximetry Pain: 0 - Precautions: Precautions: Fall Prevention - Medications/Other Issues Comment: - (+) episodes of hallucination, paranoia with min agitation. easily resolved with emotional reassurance and reorientation. - (+) UTI, started on Macrodantin q12H. - Seen by Psych, started on Risperdal HS. D/C Seroquel. - Consults Comment: Dr. Castellano, Dr. Bennett/Dr. Jaquez - Skin Incision Site: L knee Dressing Status: Clean, Dry, Intact Incision: Healing Well, Anne Intact, No Drainage Noted Incision Line Treatment: Cleansed with alcohol and covered with dry dressing - Toileting Toileting: Supervision - Bladder Management Bladder Pattern: Normal, Incontinent Voiding Method: Toilet Bladder Management: Supervision Frequency of Accidents: x1 - Bowel Management Bowel Pattern: Normal Bowel Management: Supervision Frequency of Accidents: 0 - Transfers Transfers: Moderate Assistance - ADL's ADL's: Moderate Assistance - Pain Management Comments: Tylenol PRN - Patient/Family Teaching Comments: Care post TKR and safety precautions, current meds. - Goals/Time Frame Comments: Per multidisciplinary care vannessa and goals - Provider Provider: Rosario GARCIAN RN CRRN Physical Therapy - Bed Mobility Bed Mobility: Supervision, Verbal Cues, Contact Guard Comment: increased time for task completion - Transfers Wheelchair to Mat: Supervision, Verbal Cues Sit to Stand: Supervision, Verbal Cues Comment: RW - Ambulation Level of Assistance: Supervision, Verbal Cues Distance (ft.): 180 Assistive Devices: Rolling Walker Orthoses: n/a Comment: -level surface, RW, VCs to continue with fluid gait and to better integrate available range of motion into gait. -leans on RW. -attempted a few steps with SPC x 4 feet from chair to steps and patient noted to be reaching with LUE; fearful to take steps without BUE support - Stair Negotiation Comment: -6 6inch steps with R rail/SPC on L on ascent and L rail/SPC on R on descent, step to pattern. -patient requires no cues to recall proper sequence today. -able to do steps with CG/CS, continues to require cues to prevent sideways rotation on descent. -patient's ex-brother in law reports steps to enter have 1 rail on the R on ascent but her son is currently working on the home to have B rails in place upon patient's home discharge; son also placing a 2nd rail on the steps from first to second floor for the patient - Standing Balance Static Stand: Supervision Dynamic Stand: Supervision, Contact Guard Assist Comment: RW - Pain Pain (assessed during therapy session): 4 Management Techniques: Medication, Heat, Ice, Massage, Position Change, Elevation, Relaxation Techniques, Exercise, Inactivity Comment: R shoulder & L knee - Insight/Carryover Insight/Carryover: Fair - Patient/Family Education Comment: formal family training scheduled for 07/15/17 with pt's daughter - Assessment/Plan Assessment: Patient is 82 yo female presenting to [facility] s/p L TKR. Precautions : Falls, WBAT LLE, uriel RN -knee immobilizer can be doffed during therapy. Patient presents with high pain levels in L knee, initermittent R shoulder pain from an old injury, unsteadiness on feet, impaired dynamic standing balance/impaired activity tolerance and poor knowledge/carryover of proper/appropriate usage of dme/ae for dressing/bathing as well as bouts of confusion. These aforementioned defecits impact the ability for pt to complete ADL routine safely and effectively . Patient has made progress towards achieivng LTGS, pt is able to complete ub self care with supervision and lb self care with supervision using lb AE and min A w/o AE. She is able to complete fucntional transfers with CS and tub transfers with cga . Caregiver training to be completed with her daughter 07/15. Reccommend intermittent supervision at home with bathing , iadls and community mobility. Reccommended DME: 3 in 1 commode, tub transfer bench , rw . pts daughter made aware of reccommendations and educated. reccommned skilled OT services 5-6x/week to maximie functional independence and prepare to safe D/C home. - Goals Timeframe: 1 week Goals: mod I functional transfers. supervision with tub bench transfers. supervision lb bathing. supervision light home mgmt tasks. mod I ub/lb dressing - Provider License Number: [id number] Occupational Therapy - Arousal/Attention/Orientation Level of Consciousness: Awake, Alert, Confused Patient Orientation: Person, Place, Time - ADL/IADL Self Feeding: Supervision, Set-up Help Grooming: Supervision, Set-up Help Bathing-Upper Extremity: Supervision Bathing-Lower Extremity: Minimal Assistance Dressing-Upper Extremity: Supervision, Set-up Help Dressing-Lower Extremity: Contact Guard, Minimal Assistance Comment: pt can completed lb dressing with supervision using LB AE with max cues. without LB AE pt needs min A - Sitting Balance Static Sitting: Supervision Dynamic Sitting: Requires supervision - Transfers Wheelchair to Bed Transfers: Supervision, Verbal Cues, Set-up Help Toilet Transfers: Supervision, Verbal Cues, Set-up Help Tub Transfers: Verbal Cues, Set-up Help, Contact Guard, Minimal Assistance Comment: tub transfer using tub transfer bench with cga/min A with verbal cues for positioning - Wheelchair Management Level of Assistance: Minimal Assistance Distance (ft.): 150 - Upper Extremity Status Right Upper Extremity Comment: WFL Left Upper Extremity Comment: WFL - Pain Pain (assessed during therapy session): 4 Alleviating Techniques: Medication, Heat, Ice, Massage, Position Change, Elevation, Relaxation Techniques, Exercise, Inactivity Comment: R shoulder & L knee - Insight/Carryover Insight/Carryover: Fair - Patient/Family Education Comment: formal family training scheduled for 07/15/17 with pt's daughter - Assessment/Plan Assessment: Patient is 82 yo female presenting to [facility] s/p L TKR. Precautions : Falls, WBAT LLE, uriel RN -knee immobilizer can be doffed during therapy. Patient presents with high pain levels in L knee, initermittent R shoulder pain from an old injury, unsteadiness on feet, impaired dynamic standing balance/impaired activity tolerance and poor knowledge/carryover of proper/appropriate usage of dme/ae for dressing/bathing as well as bouts of confusion. These aforementioned defecits impact the ability for pt to complete ADL routine safely and effectively . Patient has made progress towards achieivng LTGS, pt is able to complete ub self care with supervision and lb self care with supervision using lb AE and min A w/o AE. She is able to complete fucntional transfers with CS and tub transfers with cga . Caregiver training to be completed with her daughter 07/15. Reccommend intermittent supervision at home with bathing , iadls and community mobility. Reccommended DME: 3 in 1 commode, tub transfer bench , rw . pts daughter made aware of reccommendations and educated. reccommned skilled OT services 5-6x/week to maximie functional independence and prepare to safe D/C home. - Goals Timeframe: 1 week Goals: mod I functional transfers. supervision with tub bench transfers. supervision lb bathing. supervision light home mgmt tasks. mod I ub/lb dressing - Provider Therapist: ADRYAN Dominguez/Gopal License Number: [id number] Speech Therapy - Plan Assessment: Patient is 82 yo female presenting to [facility] s/p L TKR. Precautions : Falls, WBAT LLE, clarificaiton RN -knee immobilizer can be doffed during therapy. Patient presents with high pain levels in L knee, initermittent R shoulder pain from an old injury, unsteadiness on feet, impaired dynamic standing balance/impaired activity tolerance and poor knowledge/carryover of proper/appropriate usage of dme/ae for dressing/bathing as well as bouts of confusion. These aforementioned defecits impact the ability for pt to complete ADL routine safely and effectively . Patient has made progress towards achieivng LTGS, pt is able to complete ub self care with supervision and lb self care with supervision using lb AE and min A w/o AE. She is able to complete fucntional transfers with CS and tub transfers with cga . Caregiver training to be completed with her daughter 07/15. Reccommend intermittent supervision at home with bathing , iadls and community mobility. Reccommended DME: 3 in 1 commode, tub transfer bench , rw . pts daughter made aware of reccommendations and educated. reccommned skilled OT services 5-6x/week to maximie functional independence and prepare to safe D/C home. Recreational Therapy - Participation Participation: Participates in Individual and/or Group Sessions - Attendance Attendance: 3-5 times per week - Activities Leisure Activities: Cards and Games - Socialization Level of Socialization: Initiates/interacts freely with care givers and peer - Diversional Time Diversional Time: television, plays games on tablet - Assessment Assessment/Plan: Patient is 82 yo female presenting to [facility] s/p L TKR. Precautions : Falls, WBAT LLE, uriel RN -knee immobilizer can be doffed during therapy. Patient presents with high pain levels in L knee, initermittent R shoulder pain from an old injury, unsteadiness on feet, impaired dynamic standing balance/impaired activity tolerance and poor knowledge /carryover of proper/appropriate usage of dme/ae for dressing/bathing as well as bouts of confusion. These aforementioned defecits impact the ability for pt to complete ADL routine safely and effectively . Patient has made progress towards achieivng LTGS, pt is able to complete ub self care with supervision and lb self care with supervision using lb AE and min A w/o AE. She is able to complete fucntional transfers with CS and tub transfers with cga . Caregiver training to be completed with her daughter 07/15. Reccommend intermittent supervision at home with bathing , iadls and community mobility. Reccommended DME: 3 in 1 commode, tub transfer bench , rw . pts daughter made aware of reccommendations and educated. reccommned skilled OT services 5-6x/week to maximie functional independence and prepare to safe D/C home. - Provider Therapist: Zeenat Jones, GENERAL PRODUCTION MANAGER #[id number] Nutrition - Current Diet Current Diet/ Supplement/ Feedings: Moderate consistent CHO diet - Appetite Percent Meal Consumed: 75-100% - Comments Comments: Care post TKR and safety precautions, current meds. - Assessment/Goals/Time Frame Assessment/Goals/Time Frame: - (+) episodes of hallucination, paranoia with min agitation. easily resolved with emotional reassurance and reorientation. - (+) UTI, started on Macrodantin q12H. - Seen by Psych, started on Risperdal HS. D/ C Seroquel. - Provider Provider: Pavithra Hernandez MS, RD Case Management - Psychosocial Assessment Support Systems: Pt resides with spouse and brother in law;. Daughter Naty Zambrano is primary contact: cell [phone]. Spouse: King Diaz [phone] Psychological Interventions/Needs: Pt is alert and oriented; Mauritian speaking Discharge Concerns: Pt with history of falls and previously has been unwilling to use RW;. Pt is alone from approximately 1130AM -530PM Mon-Fri. Per team, pt fearful which limits pt's progress at times Patient/Family Meeting: CM met with pt and daughter Naty at bedside (pt prefers for daughter to be used as Mauritian Speaking customer support coordinator) along with rehab team Intervention/Goal/Outcome:: 1. Tentative discharge date: 07/17/17 home with skilled homecare 2. Goal: Intermittent supervision overall 3. Provided options for skilled homecare to daughter who does not have a preference for agency; Will refer to [facility] 4. DME: RW and transfer tub bench 4. Scheduled caregiver training/education on Thu07/15/17 at 1030AM with daughter. - Discharge Plan Discharge Plan: Home with significant other/family, Home with services - Provider Provider: BJ Cruz, S[employer] DECORATING MACHINE OPERATOR License Number: [id number]
--- NOTE | 2017-07-15 15:04 | CP.PCM.PN ---
Subjective - Date & Time of Evaluation Date of Evaluation: 07/14/17 Time of Evaluation: 19:00 - Subjective Subjective: no acute complaints at present Objective - Vital Signs/Intake and Output Vital Signs (last 24 hours): Temp Pulse Resp BP Pulse Ox 96.0 F L 91 H 20 122/67 93 L 07/15/17 08:39 07/15/17 08:39 07/15/17 08:39 07/15/17 08:39 07/15/17 07:33 - Medications Medications: Current Medications Acetaminophen (Tylenol 325mg Tab) 650 mg PO Q6 PRN PRN Reason: Pain 4-10 Last Admin: 07/15/17 08:04 Dose: 650 mg Aspirin (Ecotrin) 81 mg PO DAILY [facility] Last Admin: 07/15/17 08:06 Dose: 81 mg Atorvastatin Calcium (Lipitor) 20 mg PO HS [facility] Last Admin: 07/14/17 21:21 Dose: 20 mg Calcium/Vitamin D (Oyster Shell Calcium/Vitamin D 500 Mg-200 Iu) 1 tab PO BID [facility] Last Admin: 07/15/17 08:06 Dose: 1 tab Donepezil HCl (Aricept) 10 mg PO DAILY [facility] Last Admin: 07/15/17 08:05 Dose: 10 mg Enoxaparin Sodium (Lovenox) 40 mg SC DAILY [facility] PRN Reason: Protocol Last Admin: 07/15/17 08:05 Dose: 40 mg Ferrous Sulfate (Feosol) 325 mg PO BID [facility] Last Admin: 07/15/17 08:06 Dose: 325 mg Gentamicin Sulfate 80 mg/ (Sodium Chloride) 102 mls @ 100 mls/hr IVPB Q8 [facility] PRN Reason: Protocol Stop: 07/22/17 15:01 Insulin Human Regular (Humulin R) 0 units SC [facility] PRN Reason: Protocol Last Admin: 07/15/17 12:24 Dose: 1 unit Lisinopril (Zestril) 40 mg PO DAILY [facility] Last Admin: 07/15/17 08:06 Dose: 40 mg Lorazepam (Ativan) 0.5 mg PO Q8 PRN PRN Reason: Agitation Last Admin: 07/15/17 08:05 Dose: 0.5 mg Metformin [facility]) [facility] Last Admin: 07/15/17 08:07 Dose: 500 mg Metoprolol Succinate (Toprol Xl) 100 mg PO DAILY [facility] Last Admin: 07/15/17 08:05 Dose: 100 mg Pantoprazole Sodium (Protonix Ec Tab) 40 mg PO 0630 [facility] Last Admin: 07/15/17 05:54 Dose: 40 mg Paroxetine HCl (Paxil) 30 mg PO HS [facility] Risperidone (Risperdal M-Tab) 0.5 mg PO Q12 PRN PRN Reason: Agitation/ Acute Psychosis Risperidone (Risperdal M-Tab) 0.5 mg PO DAILY@1700 [facility] Sitagliptin Phosphate (Januvia) 100 mg PO DAILY [facility] Last Admin: 07/15/17 08:07 Dose: 100 mg - Labs Labs: 07/14/17 12:01 07/14/17 12:01 PT 12.9 Seconds (9.8-13.1) 07/06/17 05:40 INR 1.2 (0.9-1.2) 07/06/17 05:40 APTT 31.7 Seconds (25.6-37.1) 07/04/17 10:57 - Head Exam Head Exam: ATRAUMATIC, NORMAL INSPECTION, NORMOCEPHALIC - Eye Exam Eye Exam: EOMI, Normal appearance, PERRL Pupil Exam: NORMAL ACCOMODATION - ENT Exam ENT Exam: Mucous Membranes Moist, Normal Exam - Neck Exam Neck Exam: Full ROM, Normal Inspection - Respiratory Exam Respiratory Exam: Clear to Ausculation Bilateral, NORMAL BREATHING PATTERN - Cardiovascular Exam Cardiovascular Exam: REGULAR RHYTHM - GI/Abdominal Exam GI & Abdominal Exam: Soft, Normal Bowel Sounds - Rectal Exam Rectal Exam: NORMAL INSPECTION - Exam External exam: NORMAL EXTERNAL EXAM - Extremities Exam Extremities Exam: Full ROM, Normal Capillary Refill, Normal Inspection - Back Exam Back Exam: NORMAL INSPECTION - Neurological Exam Neurological Exam: Alert, Awake Neuro motor strength exam: Left Upper Extremity: 4, Right Upper Extremity: 4, Left Lower Extremity: 3, Right Lower Extremity: 4 - Psychiatric Exam Psychiatric exam: Normal Affect, Normal Mood - Skin Skin Exam: Dry, Normal Color Assessment and Plan (1) S/P TKR (total knee replacement) Assessment & Plan: plan for physical, occupational rec therapy psych follow up Status: Acute
[2017-07-15] MEDS: Risperidone M tab 0.5MG PO SCH (17:25)
--- NOTE | 2017-07-15 19:37 | PN ---
DATE: 07/15/2017 PHYSIATRY PROGRESS NOTE SUBJECTIVE: The patient is feeling fine. Although, has some problems with delusions and hallucinations. No acute complaints at present. PHYSICAL EXAMINATION: VITAL SIGNS: Stable. NECK: Supple. CHEST: Symmetrical. HEART: Sounds S1 and S2. ABDOMEN: Abdominal area is benign. EXTREMITIES: No clubbing, cyanosis, or edema. IMPRESSION: For the patient, osteoarthritis of the left knee, history of kidney and history of right shoulder surgery. PLAN: For physical therapy, occupational therapy. Tentative discharge date for the patient is 07/17/2017, removed to most of this edmond of the knee with Steri strips on top, also spoke to the psychiatrist for possible evaluation and change in the medication. The patient also with urinary tract infection. Antibiotics as per medical doctor. Jj Castellano MD
[2017-07-16] MEDS: Pantoprazole 40 mg EC Tab PO SCH (06:27)
[2017-07-16] MEDS: Insulin Regular 100 units/ml SC SCH ×4 (06:54→22:05)
--- NOTE | 2017-07-16 08:46 | CP.PCM.PN ---
Objective - Vital Signs/Intake and Output Vital Signs (last 24 hours): Temp Pulse Resp BP Pulse Ox 98.0 F 87 18 152/79 H 95 07/16/17 07:44 07/16/17 07:44 07/16/17 07:44 07/16/17 07:44 07/16/17 07:44 - Medications Medications: Current Medications Acetaminophen (Tylenol 325mg Tab) 650 mg PO Q6 PRN PRN Reason: Pain 4-10 Last Admin: 07/15/17 08:04 Dose: 650 mg Aspirin (Ecotrin) 81 mg PO DAILY [facility] Last Admin: 07/15/17 08:06 Dose: 81 mg Atorvastatin Calcium (Lipitor) 20 mg PO HS [facility] Last Admin: 07/15/17 22:54 Dose: 20 mg Calcium/Vitamin D (Oyster Shell Calcium/Vitamin D 500 Mg-200 Iu) 1 tab PO BID [facility] Last Admin: 07/15/17 17:25 Dose: 1 tab Donepezil HCl (Aricept) 10 mg PO DAILY [facility] Last Admin: 07/15/17 08:05 Dose: 10 mg Enoxaparin Sodium (Lovenox) 40 mg SC DAILY [facility] PRN Reason: Protocol Last Admin: 07/15/17 08:05 Dose: 40 mg Ferrous Sulfate (Feosol) 325 mg PO BID [facility] Last Admin: 07/15/17 17:25 Dose: 325 mg Gentamicin Sulfate 80 mg/ (Sodium Chloride) 102 mls @ 100 mls/hr IVPB Q8@0100, 0900,1700 [facility] PRN Reason: Protocol Last Admin: 07/16/17 01:32 Dose: 100 mls/hr Insulin Human Regular (Humulin R) 0 units SC ACHS [facility] PRN Reason: Protocol Last Admin: 07/16/17 06:54 Dose: 1 unit Lisinopril (Zestril) 40 mg PO DAILY [facility] Last Admin: 07/15/17 08:06 Dose: 40 mg Lorazepam (Ativan) 0.5 mg PO Q8 PRN PRN Reason: Agitation Last Admin: 07/15/17 08:05 Dose: 0.5 mg Metformin HCl (Glucophage) 500 mg PO BIDWM [facility] Last Admin: 07/15/17 17:25 Dose: 500 mg Metoprolol Succinate (Toprol Xl) 100 mg PO DAILY [facility] Last Admin: 07/15/17 08:05 Dose: 100 mg Pantoprazole Sodium (Protonix Ec Tab) 40 mg PO 0630 [facility] Last Admin: 07/16/17 06:27 Dose: 40 mg Paroxetine HCl (Paxil) 30 mg PO HS [facility] Last Admin: 07/15/17 22:54 Dose: 30 mg Risperidone (Risperdal M-Tab) 0.5 mg PO Q12 PRN PRN Reason: Agitation/ Acute Psychosis Last Admin: 07/16/17 08:02 Dose: 0.5 mg Risperidone (Risperdal M-Tab) 0.5 mg PO DAILY@1700 [facility] Last Admin: 07/15/17 17:25 Dose: 0.5 mg Sitagliptin Phosphate (Januvia) 100 mg PO DAILY [facility] Last Admin: 07/15/17 08:07 Dose: 100 mg - Labs Labs: 07/14/17 12:01 07/14/17 12:01 PT 12.9 Seconds (9.8-13.1) 07/06/17 05:40 INR 1.2 (0.9-1.2) 07/06/17 05:40 APTT 31.7 Seconds (25.6-37.1) 07/04/17 10:57
[2017-07-16] MEDS: Metoprolol Succinate 100 mg XL Tab PO SCH (08:57)
[2017-07-16] MEDS: Calcium-Vit D 500 mg-200 Units Tab UD PO SCH ×2 (09:42→16:25)
[2017-07-16] MEDS: Enoxaparin 40 mg Syringe SC SCH (09:42)
[2017-07-16] MEDS: Risperidone M tab 0.5MG PO SCH (16:25)
[2017-07-16 19:43] VITALS: PULSE 82
[2017-07-17] MEDS: Pantoprazole 40 mg EC Tab PO SCH (06:45)
[2017-07-17] MEDS: Insulin Regular 100 units/ml SC SCH ×2 (06:49→11:35)
[2017-07-17 07:01] LABS: HEMOGLOBIN 8.5 g/dL (12.0-16.0); MEAN CELL VOLUME 89.9 fl (81.0-99.0); MEAN CORPUSCULAR HEMOGLOBIN 29.3 pg (27.0-31.0); MEAN CORPUSCULAR HGB CONC 32.6 g/dL (33.0-37.0); RBC 2.89 Mil/uL (3.80-5.20); RED CELL DISTRIBUTION WIDTH 16.1 % (11.5-14.5); WHITE BLOOD COUNT 5.5 K/uL (4.8-10.8)
[2017-07-17 07:13] LABS: ALB/GLOB RATIO 1.1 (1.0-2.1); ALBUMIN 3.2 g/dL (3.5-5.0); ALT/SGPT 24 U/L (9-52); AST/SGOT 27 U/L (14-36); BLOOD UREA NITROGEN 17 mg/dl (7-17); GFR AFRICAN-AMERICAN > 60; GFR NON-AFRICAN AMERICAN > 60
[2017-07-17] MEDS: Metoprolol Succinate 100 mg XL Tab PO SCH (08:26)
[2017-07-17] MEDS: Enoxaparin 40 mg Syringe SC SCH (08:26)
[2017-07-17] MEDS: Calcium-Vit D 500 mg-200 Units Tab UD PO SCH (08:26)
[2017-07-17 08:27] VITALS: BP 139/74; RESP 18; TEMP 97.7; O2SAT 100
--- NOTE | 2017-07-18 10:47 | CP.PCM.PN ---
Subjective - Date & Time of Evaluation Date of Evaluation: 07/17/17 Time of Evaluation: 09:00 - Subjective Subjective: no acute complaints of knee pain Objective - Vital Signs/Intake and Output Vital Signs (last 24 hours): Temp Pulse Resp BP Pulse Ox 97.7 F 82 18 139/74 100 07/17/17 08:26 07/17/17 08:26 07/17/17 08:26 07/17/17 08:26 07/17/17 08:26 - Labs Labs: 07/17/17 06:30 07/17/17 06:30 PT 12.9 Seconds (9.8-13.1) 07/06/17 05:40 INR 1.2 (0.9-1.2) 07/06/17 05:40 APTT 31.7 Seconds (25.6-37.1) 07/04/17 10:57 - Head Exam Head Exam: ATRAUMATIC, NORMAL INSPECTION, NORMOCEPHALIC - Eye Exam Eye Exam: EOMI, Normal appearance Pupil Exam: NORMAL ACCOMODATION, PERRL - ENT Exam ENT Exam: Mucous Membranes Moist, Normal Exam - Neck Exam Neck Exam: Normal Inspection - Respiratory Exam Respiratory Exam: Clear to Ausculation Bilateral - Cardiovascular Exam Cardiovascular Exam: REGULAR RHYTHM - GI/Abdominal Exam GI & Abdominal Exam: Soft, Normal Bowel Sounds - Rectal Exam Rectal Exam: NORMAL INSPECTION - Exam External exam: NORMAL EXTERNAL EXAM - Back Exam Back Exam: NORMAL INSPECTION - Neurological Exam Neurological Exam: Alert, Awake Neuro motor strength exam: Left Upper Extremity: 4, Right Upper Extremity: 4, Left Lower Extremity: 4, Right Lower Extremity: 3 - Psychiatric Exam Psychiatric exam: Normal Affect, Normal Mood - Skin Skin Exam: Dry, Normal Color Assessment and Plan (1) S/P TKR (total knee replacement) Assessment & Plan: status post removal of rest of the edmond with no bleeding or problems, put on stirristrips Plan for TCU as on gentamycin status post UTI Physical, occupational therapy at present. Plan for Dc home after completion of antiboitics Status: Acute
--- NOTE | 2017-07-18 18:00 | CP.PCM.DIS ---
Provider - Provider Date of Admission: 07/03/17 18:53 Attending physician: Kai Urena MD Diagnosis - Discharge Diagnosis (1) S/P TKR (total knee replacement) Status: Acute (2) Gait abnormality Status: Acute (3) Diabetes mellitus type 2 in nonobese Status: Acute (4) Hypertension Status: Acute (5) Hyperlipidemia Status: Acute Hospital Course - Lab Results Lab Results: Micro Results 07/13/17 10:27 Urine,Clean Catch Urine Culture - Final Proteus Mirabilis Most Recent Lab Values WBC 5.5 K/uL (4.8-10.8) 07/17/17 06:30 RBC 2.89 Mil/uL (3.80-5.20) L 07/17/17 06:30 Hgb 8.5 g/dL (12.0-16.0) L 07/17/17 06:30 Hct 26.0 % (34.0-47.0) L 07/17/17 06:30 MCV 89.9 fl (81.0-99.0) 07/17/17 06:30 MCH 29.3 pg (27.0-31.0) 07/17/17 06:30 MCHC 32.6 g/dL (33.0-37.0) L 07/17/17 06:30 RDW 16.1 % (11.5-14.5) H 07/17/17 06:30 Plt Count 362 K/uL (130-400) 07/17/17 06:30 MPV 8.9 fl (7.2-11.7) 07/14/17 12:01 Neut % (Auto) 85.2 % (50.0-75.0) H 07/14/17 12:01 Lymph % (Auto) 8.0 % (20.0-40.0) L 07/14/17 12:01 [place] % (Auto) 4.9 % (0.0-10.0) 07/14/17 12:01 Eos % (Auto) 1.3 % (0.0-4.0) 07/14/17 12:01 Baso % (Auto) 0.6 % (0.0-2.0) 07/14/17 12:01 Neut # (Auto) 7.4 K/uL (1.8-7.0) H 07/14/17 12:01 Lymph # (Auto) 0.7 K/uL (1.0-4.3) L 07/14/17 12:01 [place] # (Auto) 0.4 K/uL (0.0-0.8) 07/14/17 12:01 Eos # (Auto) 0.1 K/uL (0.0-0.7) 07/14/17 12:01 Baso # (Auto) 0.1 K/uL (0.0-0.2) 07/14/17 12:01 Neutrophils % (Manual) 81 % (42-75) H 07/14/17 12:01 Band Neutrophils % 1 % (0-2) 07/09/17 11:03 Lymphocytes % (Manual) 9 % (20-50) L 07/14/17 12:01 Reactive Lymphs % 8 % (0-0) H 07/09/17 11:03 Monocytes % (Manual) 8 % (0-10) 07/14/17 12:01 Eosinophils % (Manual) 2 % (0-7) 07/14/17 12:01 Basophils % (Manual) 1 % (0-2) 07/09/17 11:03 Platelet Estimate Slightly increased (NORMAL) H 07/14/17 12:01 Large Platelets Present 07/09/17 11:03 Hypochromasia (manual) Slight 07/14/17 12:01 Poikilocytosis (manual Slight 07/09/17 11:03 Anisocytosis (manual) Slight 07/14/17 12:01 Ovalocytes Slight 07/09/17 11:03 Retic Count 4.2 % (0.5-1.5) H 07/09/17 11:03 PT 12.9 Seconds (9.8-13.1) 07/06/17 05:40 INR 1.2 (0.9-1.2) 07/06/17 05:40 APTT 31.7 Seconds (25.6-37.1) 07/04/17 10:57 Sodium 138 mmol/l (132-148) 07/17/17 06:30 Potassium 4.1 MMOL/L (3.6-5.0) 07/17/17 06:30 Chloride 103 mmol/L (98-107) 07/17/17 06:30 Carbon Dioxide 26 mmol/L (22-30) 07/17/17 06:30 Anion Gap 13 (10-20) 07/17/17 06:30 BUN 17 mg/dl (7-17) 07/17/17 06:30 Creatinine 0.9 mg/dl (0.7-1.2) 07/17/17 06:30 Est GFR ( Amer) > 60 07/17/17 06:30 Est GFR (Non-Af Amer) > 60 07/17/17 06:30 POC Glucose (mg/dL) 179 mg/dL (65-110) H 07/17/17 11:29 Random Glucose 149 mg/dL (65-105) H 07/17/17 06:30 Hemoglobin A1c 7.8 % (4.2-6.5) H 07/07/17 07:25 Calcium 9.0 mg/dL (8.4-10.2) 07/17/17 06:30 Iron 36 ug/dL (37-170) L 07/09/17 11:03 TIBC 309 ug/dL (250-450) 07/09/17 11:03 % Saturation 12 % (20-55) L 07/09/17 11:03 Transferrin 206.24 mg/dL (206-381) 07/09/17 11:03 Ferritin 66.3 ng/Ml (11.1-264.0) 07/09/17 11:03 Total Bilirubin 0.4 mg/dl (0.2-1.3) 07/17/17 06:30 AST 27 U/L (14-36) 07/17/17 06:30 ALT 24 U/L (9-52) 07/17/17 06:30 Alkaline Phosphatase 97 U/L (38-126) 07/17/17 06:30 Lactate Dehydrogenase 506 U/L (313-618) 07/09/17 11:03 Total Protein 5.9 G/DL (6.3-8.2) L 07/17/17 06:30 Albumin 3.2 g/dL (3.5-5.0) L 07/17/17 06:30 Globulin 2.8 gm/dL (2.2-3.9) 07/17/17 06:30 Albumin/Globulin Ratio 1.1 (1.0-2.1) 07/17/17 06:30 Vitamin B12 777 pg/mL (239-931) 07/09/17 11:03 Folate > 20.0 ng/mL 07/09/17 11:03 Urine Color Yellow (YELLOW) 07/13/17 10:27 Urine Clarity Slighty-cloudy (Clear) 07/13/17 10:27 Urine pH 5.0 (5.0-8.0) 07/13/17 10:27 Ur Specific [place] 1.020 (1.003-1.030) 07/13/17 10:27 Urine Protein 30 mg/dL (NEGATIVE) 07/13/17 10:27 Urine Glucose (UA) Neg mg/dL (Normal) 07/13/17 10:27 Urine Ketones Negative mg/dL (NEGATIVE) 07/13/17 10:27 Urine Blood Negative (NEGATIVE) 07/13/17 10:27 Urine Nitrate Negative (NEGATIVE) 07/13/17 10:27 Urine Bilirubin Negative (NEGATIVE) 07/13/17 10:27 Urine Urobilinogen 0.2-1.0 mg/dL (0.2-1.0) 07/13/17 10:27 Ur Leukocyte Esterase Mod Kelvin/uL (Negative) 07/13/17 10:27 Urine RBC (Auto) 3 /hpf (0-3) 07/13/17 10:27 Urine Microscopic WBC 21 /hpf (0-5) H 07/13/17 10:27 Ur Squamous Epith Cells < 1 /hpf (0-5) 07/13/17 10:27 Ur Renal Epithelial Cell 1 /hpf (0-3) 07/13/17 10:27 Hyaline Casts 3-5 /hpf (0-2) H 07/13/17 10:27 - Hospital Course Hospital Course: This is a 82 y/o female admitted for left TKR and rehab. She was seen at acute rehab, During her hospitalization , she had episodes of delirium and anxiety. She was also noted to have UTI. Discharge Exam - Head Exam Head Exam: ATRAUMATIC, NORMAL INSPECTION, NORMOCEPHALIC Discharge Plan - Follow Up Plan Condition: GOOD Disposition: TRANSF TO SNF Instructions: Total Knee Replacement (DC), Preventing Falls, Postop Total Knee Replacement Exercises Lying Down, Postop Total Knee Replacement Exercises Seated or Standing Referrals: Harmony Ludwig MD [Staff Provider] - Louise Bennett MD [Medical Doctor] - Go Christensen MD [Medical Doctor] - Jj Castellano MD [Staff Provider] -
== END 2017-07-17 13:30 | DRG 560 ==
PROVIDERS: ADMIT Family Medicine; ATTEND Family Medicine
PROC: F08Z1FZ Dressing Techniques Treatment using Assistive, Adaptive, Supportive or Protective Equipment (ICD-10-PCS; principal; 2017-07-03)
PROC: F07Z5FZ Bed Mobility Treatment using Assistive, Adaptive, Supportive or Protective Equipment (ICD-10-PCS; 2017-07-03)
PROC: F07Z8FZ Transfer Training Treatment using Assistive, Adaptive, Supportive or Protective Equipment (ICD-10-PCS; 2017-07-03)
PROC: F07Z9FZ Gait Training/Functional Ambulation Treatment using Assistive, Adaptive, Supportive or Protective Equipment (ICD-10-PCS; 2017-07-03)
PROC: F07L6ZZ Therapeutic Exercise Treatment of Musculoskeletal System - Lower Back / Lower Extremity (ICD-10-PCS; 2017-07-03)
PROC: F07L7ZZ Manual Therapy Techniques Treatment of Musculoskeletal System - Lower Back / Lower Extremity (ICD-10-PCS; 2017-07-03)
DX: Z47.1 Aftercare following joint replacement surgery (principal); N39.0 Urinary tract infection, site not specified; Z96.652 Presence of left artificial knee joint; F03.90 Unspecified dementia, unspecified severity, without behavioral disturbance, psychotic disturbance, mood disturbance, and anxiety; F32.9 Major depressive disorder, single episode, unspecified; E78.00 Pure hypercholesterolemia, unspecified; I12.9 Hypertensive chronic kidney disease with stage 1 through stage 4 chronic kidney disease, or unspecified chronic kidney disease; N18.9 Chronic kidney disease, unspecified; Z88.0 Allergy status to penicillin; E11.22 Type 2 diabetes mellitus with diabetic chronic kidney disease; K21.9 Gastro-esophageal reflux disease without esophagitis; F41.9 Anxiety disorder, unspecified; D63.8 Anemia in other chronic diseases classified elsewhere; E61.1 Iron deficiency; E78.5 Hyperlipidemia, unspecified; R44.1 Visual hallucinations; T50.905A Adverse effect of unspecified drugs, medicaments and biological substances, initial encounter; B96.4 Proteus (mirabilis) (morganii) as the cause of diseases classified elsewhere; R41.0 Disorientation, unspecified

== ENCOUNTER 2017-07-17 13:11 | Inpatient (IN) | payer OTHER, MEDICARE ==
[2017-07-17 14:14] VITALS: BMI 35.9
[2017-07-17] MEDS ORDERED: Risperidone M tab 0.5MG PO PRN (15:17)
[2017-07-17 15:29] VITALS: RESP 20
[2017-07-17] MEDS ORDERED: VITAMIN D3 PO SCH (17:00)
[2017-07-17] MEDS ORDERED: Risperidone M tab 0.5MG PO SCH (17:00)
[2017-07-17] MEDS ORDERED: CALCIUM CARBONATE PO SCH (17:00)
[2017-07-17] MEDS: Calcium-Vit D 500 mg-200 Units Tab UD PO SCH (17:17)
[2017-07-17] MEDS: Gentamicin 80mg/50ml NS 80 MG/50 ML BAG IVPB SCH ×2 (17:48→21:19)
[2017-07-17] MEDS: Risperidone M tab 0.5MG PO SCH (19:06)
[2017-07-17] MEDS: Insulin Regular 100 units/ml SC SCH (21:15)
[2017-07-18] MEDS: Gentamicin 80mg/50ml NS 80 MG/50 ML BAG IVPB SCH ×3 (01:44→17:00)
[2017-07-18] MEDS: Pantoprazole 40 mg EC Tab PO SCH (06:18)
[2017-07-18] MEDS: Insulin Regular 100 units/ml SC SCH ×4 (06:39→21:43)
[2017-07-18] MEDS: Enoxaparin 40 mg Syringe SC SCH (08:22)
[2017-07-18] MEDS: Metoprolol Succinate 100 mg XL Tab PO SCH (08:23)
[2017-07-18] MEDS: Calcium-Vit D 500 mg-200 Units Tab UD PO SCH ×2 (08:23→17:01)
[2017-07-18 09:58] LABS: BASO # 0.1 K/uL (0.0-0.2); EOS # 0.2 K/uL (0.0-0.7); HEMOGLOBIN 9.3 g/dL (12.0-16.0); LYMPH % 17.9 % (20.0-40.0); MEAN CELL VOLUME 91.3 fl (81.0-99.0); MEAN CORPUSCULAR HEMOGLOBIN 29.8 pg (27.0-31.0); MEAN CORPUSCULAR HGB CONC 32.6 g/dL (33.0-37.0); MEAN PLATELET VOLUME 9.7 fl (7.2-11.7); MONO # 0.5 K/uL (0.0-0.8); MONO % 8.1 % (0.0-10.0); RBC 3.11 Mil/uL (3.80-5.20); RED CELL DISTRIBUTION WIDTH 16.2 % (11.5-14.5); WHITE BLOOD COUNT 5.8 K/uL (4.8-10.8)
[2017-07-18 10:10] LABS: ALB/GLOB RATIO 1.2 (1.0-2.1); ALBUMIN 3.6 g/dL (3.5-5.0); ALT/SGPT 24 U/L (9-52); AST/SGOT 23 U/L (14-36); BLOOD UREA NITROGEN 18 mg/dl (7-17); CALCIUM 8.9 mg/dL (8.4-10.2); GFR AFRICAN-AMERICAN > 60; GFR NON-AFRICAN AMERICAN > 60
[2017-07-18] MEDS: Risperidone M tab 0.5MG PO SCH (17:01)
[2017-07-19] MEDS: Insulin Regular 100 units/ml SC SCH ×4 (06:59→21:30)
[2017-07-19] MEDS: Pantoprazole 40 mg EC Tab PO SCH (07:01)
[2017-07-19] MEDS: Enoxaparin 40 mg Syringe SC SCH (08:48)
[2017-07-19] MEDS: Metoprolol Succinate 100 mg XL Tab PO SCH (08:49)
[2017-07-19] MEDS: Digoxin 125 mcg (0.125 mg) Tab PO SCH (08:51)
[2017-07-19] MEDS: Calcium-Vit D 500 mg-200 Units Tab UD PO SCH ×2 (08:52→17:05)
--- NOTE | 2017-07-19 13:39 | CP.PCM.CON ---
History of Present Illness - History of Present Illness History of Present Illness: I was asked to evaluate patient by Dr Urena. Patient is a 82 year old female with PMh HTN, afib who presents for rehab. Her routine cardiac care is with Dr Holder, The patient is maintained on Eliquis. She denies chest pain or dsypnea. Review of Systems - Constitutional Constitutional: absent: As Per HPI, Anorexia, Chills, Daytime Sleepiness, Excessive Sweating, Fatigue, Fever, Frequent Falls, Headache, Increased Appetite , Lethargy, Malaise, Night Sweats, Snoring, Sleep Apnea, Weight Gain, Weight Loss, Weakness, Other - EENT Eyes: absent: As Per HPI, Blind Spots, Blurred Vision, Change in Vision, Decreased Night Vision, Diplopia, Discharge, Dry Eye, Exophthalmos, Floaters, Irritation, Itchy Eyes, Loss of Peripheral Vision, Pain, Photophobia, Requires Corrective Lenses, Sees Flashes, Spots in Vision, Tunnel Vision, Other Visual Disturbances, Loss of Vision, Other Ears: absent: As Per HPI, Decreased Hearing, Ear Discharge, Ear Pain, Tinnitus, Abnormal Hearing, Disequilibrium, Dizziness, Other Nose/Mouth/Throat: absent: As Per HPI, Epistaxis, Nasal Congestion, Nasal Discharge, Nasal Obstruction, Nasal Trauma, Nose Pain, Post Nasal Drip, Sinus Pain, Sinus Pressure, Bleeding Gums, Change in Voice, Dental Pain, Dry Mouth, Dysphagia, Halitosis, Hoarsness, Lip Swelling, Mouth Lesions, Mouth Pain, Odynophagia, Sore Throat, Throat Swelling, Tongue Swelling, Facial Pain, Neck Pain, Neck Mass, Other - Cardiovascular Cardiovascular: absent: As Per HPI, Acrocyanosis, Chest Pain, Chest Pain at Rest , Chest Pain with Activity, Claudication, Diaphoresis, Dyspnea, Dyspnea on Exertion, Edema, Irregular Heart Rhythm, Pain Radiating to Arm/Neck/Jaw, Leg Edema, Leg Ulcers, Lightheadedness, Orthopnea, Palpitations, Paroxysmal Nocturnal Dyspnea, Pedal Edema, Radiating Pain, Rapid Heart Rate, Slow Heart Rate, Syncope, Other - Respiratory Respiratory: absent: As Per HPI, Cough, Dyspnea, Hemoptysis, Dyspnea on Exertion , Wheezing, Snoring, Stridor, Pain on Inspiration, Chest Congestion, Excessive Mucous Production, Change in Mucous Color, Pain with Coughing, Other - Gastrointestinal Gastrointestinal: absent: As Per HPI, Abdominal Pain, Belching, Bloating, Change in Bowel Habits, Change in Stool Character, Coffee Ground Emesis, Constipation, Cramping, Diarrhea, Dyspepsia, Dysphagia, Early Satiety, Excessive Flatus, Fecal Incontinence, Heartburn, Hematemesis, Hematochezia, Loose Stools, Melena, Nausea, Odynophagia, Temesmus, Vomiting, Other - Genitourinary Genitourinary: absent: As Per HPI, Change in Urinary Stream, Difficulty Urinating, Dysuria, Flank Pain, Hematuria, Pyuria, Nocturia, Urinary Incontinence, Urinary Frequency, Urinary Hesitance, Urinary Urgency, Voiding Freq/Small Amts, Freq UTI, Hx Renal/Bladder Calculi, Hx /Renal Surgery, Bladder Distension, Other - Musculoskeletal Musculoskeletal: absent: As Per HPI, Abnormal Gait, Arthralgias, Atrophy, Back Pain, Deformity, Joint Swelling, Limited Range of Motion, Loss of Height, Muscle Cramps, Muscle Weakness, Myalgias, Neck Pain, Numbness, Radiating Pain into Limb, Stiffness, Tingling, Other - Integumentary Integumentary: absent: As Per HPI, Acne, Alopecia, Bleeding Lesions, Change in Hair, Change in Nails, Change in Pigmentation, Changing Lesions, Dry Skin, Erythema, Furuncle, Hirsutism, Lesions, New Lesions, Non-Healing Lesions, Photosensitivity, Pruritus, Rash, Skin Pain, Skin Ulcer, Sores, Striae, Swelling , Unusual Bruising, Wounds, Jaundice, Other - Neurological Neurological: absent: As Per HPI, Abnormal Gait, Abnormal Hearing, Abnormal Movements, Abnormal Speech, Behavioral Changes, Burning Sensations, Confusion, Convulsions, Disequilibrium, Dizziness, Numbness, Focal Weakness, Frequent Falls , Headaches, Lack of Coordination, Loss of Vision, Memory Loss, Paresthesias, Radicular Pain, Restless Legs, Sensory Deficit, Syncope, Tingling, Tremor, Vertigo, Weakness, Other Visual Disturbances, Other - Psychiatric Psychiatric: absent: As Per HPI, Abnormal Sleep Pattern, Anhedonia, Anxiety, Auditory Hallucinations, Behavioral Changes, Change in Appetite, Change in Libido, Confusion, Depression, Difficulty Concentrating, Hallucinations, Homicidal Ideation, Hopelessness, Irritability, Memory Loss, Mood Swings, Panic Attacks, Paranoia, Suicidal Ideation, Visual Hallucinations, Tactile Hallucinations, Other - Endocrine Endocrine: absent: As Per HPI, Change in Body Appearance, Change in Libido, Cold Intolorance, Deepening of Voice, Excessive Sweating, Fatigue, Flushing, Heat Intolorance, Increase in Ring/Shoe/Hat Size, Palpitations, Polydipsia, Polyphagia, Polyuria, Other - Hematologic/Lymphatic Hematologic: absent: As Per HPI, Easy Bleeding, Easy Bruising, Lymphadenopathy, Other Past Patient History - Infectious Disease Hx of Infectious Diseases: None - Past Medical History & Family History Past Medical History?: Yes - Past Social History Smoking Status: Never Smoked - CARDIAC Hx Hypertension: Yes - PULMONARY Hx Respiratory Disorders: Yes Other/Comment: - "Breathing problems" (Denies any hx: asthma,. COPD, or pneumonia). Patient prescribed Singulair - NEUROLOGICAL Hx Dementia: Yes - HEENT Hx Cataracts: Yes (Hx. of bilateral cataract surgeries) - RENAL Hx Chronic Kidney Disease: Yes (JED on CKD) - ENDOCRINE/METABOLIC Hx Diabetes Mellitus Type 2: Yes - HEMATOLOGICAL/ONCOLOGICAL Hx AIDS: No Hx Human Immunodeficiency Virus (HIV): No - INTEGUMENTARY Hx Dermatological Problems: No - MUSCULOSKELETAL/RHEUMATOLOGICAL Hx Falls: No Hx Osteoarthritis: Yes - GASTROINTESTINAL Hx Gastrointestinal Disorders: No - GENITOURINARY/GYNECOLOGICAL Hx Genitourinary Disorders: No - PSYCHIATRIC Hx Anxiety: Yes Hx Substance Use: No - SURGICAL HISTORY Hx Surgeries: Yes Hx Orthopedic Surgery: Yes Other/Comment: -- Left total knee replacement 07/01/2017. -- Right kidney removal. -- Right ovarian and tubal removal. -- Right shoulder surgery - ANESTHESIA Hx Anesthesia: Yes Hx Anesthesia Reactions: No Hx Malignant Hyperthermia: No Meds Allergies/Adverse Reactions: Allergies Allergy/AdvReac Type Severity Reaction Status Date / Time Penicillins Allergy SHORTNESS Verified 07/17/17 14:13 OF BREATH - Medications Medications: Current Medications Acetaminophen (Tylenol 325mg Tab) 650 mg PO Q6 PRN PRN Reason: Pain, moderate (4-7) Last Admin: 07/19/17 13:33 Dose: 650 mg Apixaban (Eliquis) 5 mg PO BID [facility] PRN Reason: Protocol Aspirin (Ecotrin) 81 mg PO DAILY [facility] Last Admin: 07/19/17 08:50 Dose: 81 mg Atorvastatin Calcium (Lipitor) 20 mg PO HS [facility] Last Admin: 07/18/17 21:44 Dose: 20 mg Calcium/Vitamin D (Oyster Shell Calcium/Vitamin D 500 Mg-200 Iu) 1 tab PO BIDWM [facility] Last Admin: 07/19/17 08:52 Dose: 1 tab Digoxin (Digoxin) 0.125 mg PO DAILY [facility] Last Admin: 07/19/17 08:51 Dose: 0.125 mg Donepezil HCl (Aricept) 10 mg PO DAILY [facility] Last Admin: 07/19/17 08:53 Dose: 10 mg Ferrous Sulfate (Feosol) 325 mg PO BID [facility] Last Admin: 07/19/17 08:51 Dose: 325 mg Gentamicin Sulfate 80 mg/ (Sodium Chloride) 52 mls @ 52 mls/hr IVPB Q12 [facility] PRN Reason: Protocol Last Admin: 07/19/17 08:48 Dose: 52 mls/hr Insulin Human Regular (Humulin R) 0 units SC ACHS [facility] PRN Reason: Protocol Last Admin: 07/19/17 11:55 Dose: 1 units Lisinopril (Zestril) 40 mg PO DAILY [facility] Last Admin: 07/19/17 08:50 Dose: 40 mg Lorazepam (Ativan) 0.5 mg PO HS [facility] Lorazepam (Ativan) 0.5 mg PO DAILY PRN PRN Reason: Agitation Metformin HCl (Glucophage) 500 mg PO BIDWM [facility] Last Admin: 07/19/17 08:50 Dose: 500 mg Metoprolol Succinate (Toprol Xl) 100 mg PO DAILY [facility] Last Admin: 07/19/17 08:49 Dose: 100 mg Pantoprazole Sodium (Protonix Ec Tab) 40 mg PO 0630 [facility] Last Admin: 07/19/17 07:01 Dose: 40 mg Paroxetine HCl (Paxil) 30 mg PO DAILY [facility] Last Admin: 07/19/17 08:52 Dose: 30 mg Risperidone (Risperdal M-Tab) 0.5 mg PO Q12 PRN PRN Reason: Agitation Risperidone (Risperdal M-Tab) 0.5 mg PO DAILY@1700 [facility] Last Admin: 07/18/17 17:01 Dose: 0.5 mg Sitagliptin Phosphate (Januvia) 100 mg PO DAILY [facility] Last Admin: 07/19/17 08:50 Dose: 100 mg Physical Exam - Constitutional Appears: Non-toxic - Head Exam Head Exam: NORMAL INSPECTION - Eye Exam Eye Exam: Normal appearance - ENT Exam ENT Exam: Mucous Membranes Moist - Neck Exam Neck exam: Positive for: Full Rom - Respiratory Exam Respiratory Exam: NORMAL BREATHING PATTERN - Cardiovascular Exam Cardiovascular Exam: Irregular Rhythm - GI/Abdominal Exam GI & Abdominal Exam: Normal Bowel Sounds - Rectal Exam Rectal Exam: Deferred - Extremities Exam Extremities exam: Positive for: pedal edema - Back Exam Back exam: NORMAL INSPECTION - Neurological Exam Neurological exam: Alert - Psychiatric Exam Psychiatric exam: Normal Affect - Skin Skin Exam: Normal Color Results - Vital Signs Recent Vital Signs: Last Vital Signs Temp 97.3 F L 07/19/17 08:00 Pulse 79 07/19/17 08:50 Resp 20 07/19/17 08:00 BP 125/77 07/19/17 08:50 Pulse Ox 95 07/19/17 08:00 - Labs Result Diagrams: 07/18/17 07:48 07/18/17 07:48 Labs: Laboratory Results - last 24 hr 07/18/17 07/18/17 07/18/17 07:48 11:03 15:58 POC Glucose (mg/dL) 125 H Gentamicin Peak 7.0 Gentamicin Trough 4.1 H* 07/18/17 07/19/17 20:46 05:06 POC Glucose (mg/dL) 196 H 155 H Gentamicin Peak Gentamicin Trough - EKG Data EKG Interpreted by: Myself Assessment & Plan (1) Chronic atrial fibrillation Assessment and Plan: rate controlled. maintain Eliquis to reduce risk of thromboembolism Status: Acute
--- NOTE | 2017-07-19 13:45 | CP.PCM.HP ---
History of Present Illness - History of Present Illness History of Present Illness: This is a n 82 y/o female admitted for further rehab She was noted to have UTI sens to gentamicin. Has a hx of chronic atrial fib. Past Patient History - Infectious Disease Hx of Infectious Diseases: None - Past Medical History & Family History Past Medical History?: Yes - Past Social History Smoking Status: Never Smoked - CARDIAC Hx Hypertension: Yes - PULMONARY Hx Respiratory Disorders: Yes Other/Comment: - "Breathing problems" (Denies any hx: asthma,. COPD, or pneumonia). Patient prescribed Singulair - NEUROLOGICAL Hx Dementia: Yes - HEENT Hx Cataracts: Yes (Hx. of bilateral cataract surgeries) - RENAL Hx Chronic Kidney Disease: Yes (JED on CKD) - ENDOCRINE/METABOLIC Hx Diabetes Mellitus Type 2: Yes - HEMATOLOGICAL/ONCOLOGICAL Hx AIDS: No Hx Human Immunodeficiency Virus (HIV): No - INTEGUMENTARY Hx Dermatological Problems: No - MUSCULOSKELETAL/RHEUMATOLOGICAL Hx Falls: No Hx Osteoarthritis: Yes - GASTROINTESTINAL Hx Gastrointestinal Disorders: No - GENITOURINARY/GYNECOLOGICAL Hx Genitourinary Disorders: No - PSYCHIATRIC Hx Anxiety: Yes Hx Substance Use: No - SURGICAL HISTORY Hx Surgeries: Yes Hx Orthopedic Surgery: Yes Other/Comment: -- Left total knee replacement 07/01/2017. -- Right kidney removal. -- Right ovarian and tubal removal. -- Right shoulder surgery - ANESTHESIA Hx Anesthesia: Yes Hx Anesthesia Reactions: No Hx Malignant Hyperthermia: No Meds Allergies/Adverse Reactions: Allergies Allergy/AdvReac Type Severity Reaction Status Date / Time Penicillins Allergy SHORTNESS Verified 07/17/17 14:13 OF BREATH Results - Vital Signs Recent Vital Signs: Last Vital Signs Temp 97.3 F L 07/19/17 08:00 Pulse 79 07/19/17 08:50 Resp 20 07/19/17 08:00 BP 125/77 07/19/17 08:50 Pulse Ox 95 07/19/17 08:00 - Labs Result Diagrams: 07/18/17 07:48 07/18/17 07:48 Labs: Laboratory Results - last 24 hr 07/18/17 07/18/17 07/18/17 07:48 11:03 15:58 POC Glucose (mg/dL) 125 H Gentamicin Peak 7.0 Gentamicin Trough 4.1 H* 07/18/17 07/19/17 20:46 05:06 POC Glucose (mg/dL) 196 H 155 H Gentamicin Peak Gentamicin Trough
--- NOTE | 2017-07-19 13:47 | CP.PCM.PN ---
Subjective - Date & Time of Evaluation Date of Evaluation: 07/19/17 Time of Evaluation: 13:46 - Subjective Subjective: Patient feel a lot better. Has no chest pain Was on Eliquis for atrial fibrillation. Objective - Vital Signs/Intake and Output Vital Signs (last 24 hours): Temp Pulse Resp BP Pulse Ox 97.3 F L 79 20 125/77 95 07/19/17 08:00 07/19/17 08:50 07/19/17 08:00 07/19/17 08:50 07/19/17 08:00 - Medications Medications: Current Medications Acetaminophen (Tylenol 325mg Tab) 650 mg PO Q6 PRN PRN Reason: Pain, moderate (4-7) Last Admin: 07/19/17 13:33 Dose: 650 mg Apixaban (Eliquis) 5 mg PO BID [facility] PRN Reason: Protocol Aspirin (Ecotrin) 81 mg PO DAILY [facility] Last Admin: 07/19/17 08:50 Dose: 81 mg Atorvastatin Calcium (Lipitor) 20 mg PO HS [facility] Last Admin: 07/18/17 21:44 Dose: 20 mg Calcium/Vitamin D (Oyster Shell Calcium/Vitamin D 500 Mg-200 Iu) 1 tab PO BIDWM [facility] Last Admin: 07/19/17 08:52 Dose: 1 tab Digoxin (Digoxin) 0.125 mg PO DAILY [facility] Last Admin: 07/19/17 08:51 Dose: 0.125 mg Donepezil HCl (Aricept) 10 mg PO DAILY [facility] Last Admin: 07/19/17 08:53 Dose: 10 mg Ferrous Sulfate (Feosol) 325 mg PO BID [facility] Last Admin: 07/19/17 08:51 Dose: 325 mg Gentamicin Sulfate 80 mg/ (Sodium Chloride) 52 mls @ 52 mls/hr IVPB Q12 [facility] PRN Reason: Protocol Last Admin: 07/19/17 08:48 Dose: 52 mls/hr Insulin Human Regular (Humulin R) 0 units SC ACHS [facility] PRN Reason: Protocol Last Admin: 07/19/17 11:55 Dose: 1 units Lisinopril (Zestril) 40 mg PO DAILY [facility] Last Admin: 07/19/17 08:50 Dose: 40 mg Lorazepam (Ativan) 0.5 mg PO HS [facility] Lorazepam (Ativan) 0.5 mg PO DAILY PRN PRN Reason: Agitation Metformin HCl (Glucophage) 500 mg PO BIDWM [facility] Last Admin: 07/19/17 08:50 Dose: 500 mg Metoprolol Succinate (Toprol Xl) 100 mg PO DAILY [facility] Last Admin: 07/19/17 08:49 Dose: 100 mg Pantoprazole Sodium (Protonix Ec Tab) 40 mg PO 0630 [facility] Last Admin: 07/19/17 07:01 Dose: 40 mg Paroxetine HCl (Paxil) 30 mg PO DAILY [facility] Last Admin: 07/19/17 08:52 Dose: 30 mg Risperidone (Risperdal M-Tab) 0.5 mg PO Q12 PRN PRN Reason: Agitation Risperidone (Risperdal M-Tab) 0.5 mg PO DAILY@1700 [facility] Last Admin: 07/18/17 17:01 Dose: 0.5 mg Sitagliptin Phosphate (Januvia) 100 mg PO DAILY [facility] Last Admin: 07/19/17 08:50 Dose: 100 mg - Labs Labs: 07/18/17 07:48 07/18/17 07:48
--- NOTE | 2017-07-19 15:57 | CP.PCM.PN ---
Subjective - Date & Time of Evaluation Date of Evaluation: 07/18/17 Time of Evaluation: 15:00 - Subjective Subjective: no acute complaints of knee pain Objective - Vital Signs/Intake and Output Vital Signs (last 24 hours): Temp Pulse Resp BP Pulse Ox 97.3 F L 79 20 125/77 95 07/19/17 08:00 07/19/17 08:50 07/19/17 08:00 07/19/17 08:50 07/19/17 08:00 - Medications Medications: Current Medications Acetaminophen (Tylenol 325mg Tab) 650 mg PO Q6 PRN PRN Reason: Pain, moderate (4-7) Last Admin: 07/19/17 13:33 Dose: 650 mg Apixaban (Eliquis) 5 mg PO BID [facility] PRN Reason: Protocol Aspirin (Ecotrin) 81 mg PO DAILY [facility] Last Admin: 07/19/17 08:50 Dose: 81 mg Atorvastatin Calcium (Lipitor) 20 mg PO HS [facility] Last Admin: 07/18/17 21:44 Dose: 20 mg Calcium/Vitamin D (Oyster Shell Calcium/Vitamin D 500 Mg-200 Iu) 1 tab PO BIDWM [facility] Last Admin: 07/19/17 08:52 Dose: 1 tab Digoxin (Digoxin) 0.125 mg PO DAILY [facility] Last Admin: 07/19/17 08:51 Dose: 0.125 mg Donepezil HCl (Aricept) 10 mg PO DAILY [facility] Last Admin: 07/19/17 08:53 Dose: 10 mg Ferrous Sulfate (Feosol) 325 mg PO BID [facility] Last Admin: 07/19/17 08:51 Dose: 325 mg Gentamicin Sulfate 80 mg/ (Sodium Chloride) 52 mls @ 52 mls/hr IVPB Q12 [facility] PRN Reason: Protocol Last Admin: 07/19/17 08:48 Dose: 52 mls/hr Insulin Human Regular (Humulin R) 0 units SC ACHS [facility] PRN Reason: Protocol Last Admin: 07/19/17 11:55 Dose: 1 units Lisinopril (Zestril) 40 mg PO DAILY [facility] Last Admin: 07/19/17 08:50 Dose: 40 mg Lorazepam (Ativan) 0.5 mg PO HS [facility] Lorazepam (Ativan) 0.5 mg PO DAILY PRN PRN Reason: Agitation Metformin HCl (Glucophage) 500 mg PO BIDWM [facility] Last Admin: 07/19/17 08:50 Dose: 500 mg Metoprolol Succinate (Toprol Xl) 100 mg PO DAILY [facility] Last Admin: 07/19/17 08:49 Dose: 100 mg Pantoprazole Sodium (Protonix Ec Tab) 40 mg PO 0630 [facility] Last Admin: 07/19/17 07:01 Dose: 40 mg Paroxetine HCl (Paxil) 30 mg PO DAILY [facility] Last Admin: 07/19/17 08:52 Dose: 30 mg Risperidone (Risperdal M-Tab) 0.5 mg PO Q12 PRN PRN Reason: Agitation Risperidone (Risperdal M-Tab) 0.5 mg PO DAILY@1700 [facility] Last Admin: 07/18/17 17:01 Dose: 0.5 mg Sitagliptin Phosphate (Januvia) 100 mg PO DAILY [facility] Last Admin: 07/19/17 08:50 Dose: 100 mg - Labs Labs: 07/18/17 07:48 07/18/17 07:48 - Head Exam Head Exam: ATRAUMATIC, NORMAL INSPECTION, NORMOCEPHALIC - Eye Exam Eye Exam: EOMI, Normal appearance Pupil Exam: NORMAL ACCOMODATION, PERRL - ENT Exam ENT Exam: Mucous Membranes Moist, Normal Exam - Neck Exam Neck Exam: Full ROM, Normal Inspection - Respiratory Exam Respiratory Exam: Clear to Ausculation Bilateral, NORMAL BREATHING PATTERN - Cardiovascular Exam Cardiovascular Exam: REGULAR RHYTHM - GI/Abdominal Exam GI & Abdominal Exam: Soft, Normal Bowel Sounds - Rectal Exam Rectal Exam: NORMAL INSPECTION - Exam External exam: NORMAL EXTERNAL EXAM - Extremities Exam Extremities Exam: Full ROM, Normal Capillary Refill, Normal Inspection - Back Exam Back Exam: NORMAL INSPECTION - Neurological Exam Neurological Exam: Alert, Awake, CN II-XII Intact Neuro motor strength exam: Left Lower Extremity: 3 Additional comments: knee incisional area with stirrstrips - Psychiatric Exam Psychiatric exam: Normal Affect, Normal Mood - Skin Skin Exam: Dry, Normal Color Assessment and Plan (1) Chronic atrial fibrillation Status: Acute (2) Diabetes mellitus type 2 in nonobese Status: Acute (3) Gait abnormality Status: Acute (4) Hallucinations Status: Acute (5) Hyperlipidemia Status: Acute (6) Hypertension Status: Acute (7) S/P TKR (total knee replacement) Assessment & Plan: to continue with quadriceps strengthening, transfers and gait training, Physical , occupational therapy status post removal of all knee edmond and added stirrstrips Status: Acute
[2017-07-19] MEDS: Risperidone M tab 0.5MG PO SCH (17:05)
[2017-07-20] MEDS: Pantoprazole 40 mg EC Tab PO SCH (06:43)
[2017-07-20] MEDS: Insulin Regular 100 units/ml SC SCH ×3 (06:45→16:27)
[2017-07-20] MEDS: Calcium-Vit D 500 mg-200 Units Tab UD PO SCH ×2 (08:11→16:35)
[2017-07-20] MEDS: Digoxin 125 mcg (0.125 mg) Tab PO SCH (08:12)
[2017-07-20] MEDS: Metoprolol Succinate 100 mg XL Tab PO SCH (08:13)
[2017-07-20 08:14] VITALS: PULSE 74
--- NOTE | 2017-07-20 11:05 | RAD ---
HISTORY: Osteoarthritis. Left knee status post TKR. COMPARISON: 02/11/2008 FINDINGS: LUNGS: No active pulmonary disease. PLEURA: No significant pleural effusion identified, no pneumothorax apparent. CARDIOVASCULAR: No radiographic findings to suggest acute or significant cardiovascular disease. OSSEOUS STRUCTURES: No significant abnormalities. Right shoulder arthroplasty a new finding compared to the prior study. VISUALIZED UPPER ABDOMEN: Normal. OTHER FINDINGS: None. IMPRESSION: No active disease. No significant interval change compared to the prior examination(s).
--- NOTE | 2017-07-20 14:28 | CARD ---
APPROVED REPORT EKG Measurement Heart [id number] <Conclusion> Atrial fibrillation Abnormal ECG
[2017-07-20 15:33] VITALS: BP 113/74; PULSE 71; TEMP 96.4; O2SAT 99
[2017-07-20] MEDS: Risperidone M tab 0.5MG PO SCH (16:35)
== END 2017-07-20 17:45 | disposition home or self-care (01) | DRG 560 ==
LOC: H.TCU 14:14
PROVIDERS: ADMIT Family Medicine; ATTEND Family Medicine
PROC: F08Z0ZZ Bathing/Showering Techniques Treatment (ICD-10-PCS; principal; 2017-07-17)
PROC: F07Z9FZ Gait Training/Functional Ambulation Treatment using Assistive, Adaptive, Supportive or Protective Equipment (ICD-10-PCS; 2017-07-17)
PROC: F07Z5ZZ Bed Mobility Treatment (ICD-10-PCS; 2017-07-17)
PROC: F07Z8ZZ Transfer Training Treatment (ICD-10-PCS; 2017-07-17)
PROC: F08Z1ZZ Dressing Techniques Treatment (ICD-10-PCS; 2017-07-17)
DX: Z47.1 Aftercare following joint replacement surgery (principal); N39.0 Urinary tract infection, site not specified; R44.3 Hallucinations, unspecified; Z96.652 Presence of left artificial knee joint; I48.2 Chronic atrial fibrillation; E78.5 Hyperlipidemia, unspecified; Z88.0 Allergy status to penicillin; F03.90 Unspecified dementia, unspecified severity, without behavioral disturbance, psychotic disturbance, mood disturbance, and anxiety; E11.22 Type 2 diabetes mellitus with diabetic chronic kidney disease; I12.9 Hypertensive chronic kidney disease with stage 1 through stage 4 chronic kidney disease, or unspecified chronic kidney disease; N18.9 Chronic kidney disease, unspecified; F41.9 Anxiety disorder, unspecified